=== PATIENT | male | born 1945 | race Two or more races ===

== ENCOUNTER 2022-10-04 11:59 | Outpatient (AMB) | payer OTHER, SELFPAY ==
--- NOTE | 2022-10-04 14:22 | AM.OFFWIN_ITS ---
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 In the meantime, he has run out of his tamsulosin, which he takes for enlarged benign prostatic hypertrophy, as well as atorvastatin 10 mg for hyperlipidemia. He reports also taking atenolol, hydrochlorothiazide, and nifedipine for hypertension therapy, as well as potassium chloride, and aspirin. He takes colchicine as needed with gout flare-ups. He denies any associated symptoms, and states that his last appointment with his PCP in [facility] was about 3 months ago, he was given only enough medication to last until then. No other past medical history available for review, as patient did not have any of his medical records with him. [facility] Social History Patient Tobacco Use Status: Never used Tobacco Review of Systems Const All systems reviewed & are unremarkable except as noted in HPI and below Physical Exam Vital Signs: Last Vital Signs Temp 97.1 F 10/04/22 14:29 Pulse 63 10/04/22 14:29 BP 138/56 L 10/04/22 14:29 Pulse Ox 96 10/04/22 14:29 Oxygen Delivery Method Room Air 10/04/22 14:29 BMI result Body Mass Index 28.0 Const General: cooperative, healthy appearing, comfortable, no acute distress, alert, awake, Physically active and well groomed; No anxious, diaphoretic, ill appearing, intoxicated appearing, poor hygiene or tired appearing Nutritional Appearance: average body habitus Limitations: no limitations Resp Effort & Inspection: normal respiratory effort, able to speak in complete sentences, no audible wheezes, no cough, no grunting, not labored, no nasal flaring, no retractions and symmetric chest movement Auscultation: clear to auscultation bilaterally, no crackles, no rales, no rhonchi, no wheezes, lung sounds not diminished and No rub present Cardio Rate: regular rate Rhythm: regular rhythm Skin Other: Good color, warm and dry Psych Appearance: grossly normal Mental Status: mental status grossly normal Speech and movement: Normal speech and movement present Affect: normal affect Attitude: cooperative Thought process: Normal thought process present Insight: Good insight present (Psych) Judgement: Good judgement present (Psych) Assessment & Plan Assessment & Plan (1) BPH with elevated PSA: Code(s): N40.0 - Benign prostatic hyperplasia without lower urinary tract symptoms; R97.20 - Elevated prostate specific antigen [PSA] Plan: Patient has been taking his tamsulosin daily, and states that it gives him some relief from urinary frequency symptoms. He has not run out of medication yet, but came in early before he would miss a dose. He has no associated symptoms, and is only 3 months out from PCP follow-up appointment. He will be establishing PCP care with new provider garry Macedo next month, so I gave him a 1 month supply to tide him over until then. He can get his PSA levels measured at that time if he is due. (2) Hypercholesterolemia: Code(s): E78.00 - Pure hypercholesterolemia, unspecified Plan: As above, patient came in requesting refill of atorvastatin 10 mg for his cholesterol control. We discussed how he attempts to maintain a healthy diet, and he states that he was up-to-date on monitoring his cholesterol with his prior PCP, so I agreed to refill his statin for 1 month until his appointment. He declined offer to get his cholesterol levels checked before his appointment with his PCP. (3) Hypertension: Code(s): I10 - Essential (primary) hypertension Plan: Patient with controlled blood pressure on walk-in visit today for refill of medication. It sounds like he has been compliant with his medication regimen, and is knowledgeable about when he takes his meds and why he takes them. He has enough hydrochlorothiazide, atenolol and nifedipine as well as potassium chloride to last until his scheduled appointment with new PCP. He has no current associated symptoms related to hypertension to report, and denies any current concerns. He knows to come in if he were to develop any symptoms, and can be seen in the walk-in if needed. Medications: New atorvastatin 10 mg PO DAILY 30 tabs 0RF tamsulosin 0.4 mg PO DAILY 30 caps 0RF Coding Level of Care Code New Pt Level 4 (05678) Diagnoses BPH with elevated PSA N40.0; R97.20 Hypercholesterolemia E78.00 Hypertension I10
[2022-10-04 14:29] VITALS: BP 138/56; PULSE 63; TEMP 36.2; O2SAT 96; BMI 28.0
== END 2022-10-04 15:19 | disposition home or self-care (01) ==
PROVIDERS: PCP Physician Assistant; Visit Provider Physician Assistant Medical
DX: N40.0 Benign prostatic hyperplasia without lower urinary tract symptoms (principal); R97.20 Elevated prostate specific antigen [PSA]; E78.00 Pure hypercholesterolemia, unspecified; I10 Essential (primary) hypertension
CPT/HCPCS: 99204

== ENCOUNTER 2022-11-02 10:49 | Outpatient (AMB) | payer OTHER, SELFPAY ==
--- NOTE | 2022-11-02 11:11 | MHC.OFFWIV ---
Intake Vital Signs 11/02/22 11:13 Height 5 ft 6 in Weight 80.371 kg BMI 28.6 BP 122/70 Blood Pressure Location Lt brachial Position Sitting Pulse 83 Pulse Source Pulse Oximeter Temp 98.6 F Temp Source Temporal Artery Scan Pulse Oximetry (%) 95 Oxygen Delivery Method Room Air Intake Visit Reasons: EST/med refill Intake Note: Pt is here requesting a med refill on Atenolol 100 mg. Pt has appointment with PCP 11/27/22. Patient Tobacco Use Status: Never used Tobacco Allergies No Known Allergies Allergy (Verified 11/02/22 11:17) Do you need a note to return to daycare/school/sports/work: No HPI HPI Comments History of Present Illness Details 1129 77 year old male presents requesting med refil atenalol 100 mg po daily. No medical complaints. Scheduled to see pcp in november benign Plan- refil med pcp follow up [facility] Social History Patient Tobacco Use Status: Never used Tobacco Review of Systems Const Details: Constitutional : No Weight loss, No Fever, No Chills, No Fatigue, No Malaise ENT/Mouth : No sore throat, No Rhinorrhea Eyes: No Eye Pain, No Swelling, No Redness Cardiovascular : No Chest Pain, No SOB, No Dyspnea on Exertion, No Orthopnea, No Edema, No Palpitations Respiratory : No Cough, No Sputum, No Wheezing Gastrointestinal : No Nausea, No Vomiting, No Diarrhea, No Constipation, No abdominal Pain, No Hematochezia, No Melena Genitourinary : No Dysuria, No Urinary Frequency, No Hematuria, Musculoskeletal : No joint pain, No Myalgias, No Joint Swelling Skin : No Skin Lesions, No rash Neuro : No Weakness, No Numbness, No Dizziness, No Headache Psych : No Anxiety/Panic, No Depression All other systems reviewed and are negative All systems reviewed & are unremarkable except as noted in HPI and below Physical Exam Vital Signs: Last Vital Signs Temp 98.6 F 11/02/22 11:13 Pulse 83 11/02/22 11:13 BP 122/70 11/02/22 11:13 Pulse Ox 95 11/02/22 11:13 Oxygen Delivery Method Room Air 11/02/22 11:13 BMI result Body Mass Index 28.6 vss Appearance: Alert.? Oriented X3.? No acute distress.? Head: Normocephalic, atraumatic, no step-offs or deformities Eyes: Pupils equal, round and reactive to light.? CVS: Normal heart rate and rhythm.? Pulses normal.? Respiratory: No respiratory distress.? Breath sounds normal.? Abdomen: Soft and nontender.? Skin: Skin warm and dry.? Normal skin color.? Normal skin turgor.? Extremities: No lower extremity edema.? No calf ttp. 5/5 strength to bilateral upper and lower extremities Neuro: Oriented X 3.? No motor deficit.? No sensory deficit. CN 2-12 intact Assessment & Plan Assessment & Plan (1) Medication refill: Code(s): Z76.0 - Encounter for issue of repeat prescription Plan Take your medications as prescribed. If you were prescribed antibiotics today, it is important that you take your medication to their entirety, do not skip any doses, do not finish them early. Follow-up with your primary care provider this week. Return to the emergency department with new or worsening symptoms. Such as fevers, chills, chest pain, shortness of breath, nausea, vomiting, dizziness, headache, vision changes, lethargy In case of emergency call 911 Medications: New atenolol 100 mg PO DAILY 30 tabs 0RF Coding Level of Care Code Est Pt Level 4 (78742) Diagnoses Medication refill Z76.0
[2022-11-02 11:13] VITALS: BP 122/70; PULSE 83; TEMP 37; O2SAT 95; BMI 28.6
== END 2022-11-02 12:51 | disposition home or self-care (01) ==
PROVIDERS: PCP Physician Assistant; Visit Provider Physician Assistant
DX: Z76.0 Encounter for issue of repeat prescription (principal)
CPT/HCPCS: 99214

== ENCOUNTER 2022-11-09 08:46 | Outpatient (AMB) | payer OTHER, SELFPAY ==
[2022-11-09 08:53] VITALS: BP 122/64; PULSE 74; TEMP 36.4; O2SAT 95; BMI 29.1
--- NOTE | 2022-11-09 08:53 | MHC.OFFWIV ---
Intake Vital Signs 11/09/22 08:53 Height 5 ft 6 in Weight 180 lb 2 oz BMI 29.1 BP 122/64 Blood Pressure Location Rt brachial Pulse 74 Pulse Source Pulse Oximeter Temp 97.6 F Temp Source Temporal Artery Scan Pulse Oximetry (%) 95 Oxygen Delivery Method Room Air Intake Visit Reasons: EST/med refill Intake Note: Pt is here requesting a med refill on Potassium chloride 20MEQ and Tamsulosin 0.4 MG Pt has new pt appt with Librado Macedo on 11/27/22 Patient Tobacco Use Status: Never used Tobacco Allergies No Known Allergies Allergy (Verified 11/09/22 08:55) HPI HPI Comments History of Present Illness Details This is a 77-year-old male who presents to the office today for medication refill. Patient needs a refill on his PO potassium chloride 20mEq twice daily and PO tamsulosin 0.4mg daily. He has a new patient appointment with Zander Macedo on 11/27. Patient has his prescription bottles with him. Patient is otherwise feeling well and he is completely asymptomatic of any medical complaints. [facility] Social History Patient Tobacco Use Status: Never used Tobacco Review of Systems Const All systems reviewed & are unremarkable except as noted in HPI and below Reports no additional complaints Eyes Reports no additional complaints ENT Reports no additional complaints Card Reports no additional complaints Resp Reports no additional complaints GI Reports no additional complaints Reports no additional complaints Musc Reports no additional complaints Skin/Breast Reports system reviewed and no additional complaints, except as documented Neuro Reports no additional complaints Psych Reports no additional complaints Endo Reports no additional complaints Dalton/Lymph Reports no additional complaints Aller/Immun Reports no additional complaints Physical Exam Vital Signs: Last Vital Signs Temp 97.6 F 11/09/22 08:53 Pulse 74 11/09/22 08:53 BP 122/64 11/09/22 08:53 Pulse Ox 95 11/09/22 08:53 Oxygen Delivery Method Room Air 11/09/22 08:53 BMI result Body Mass Index 29.1 Const Other: Vital signs reviewed. Constitutional: Non-toxic appearing. No acute distress. Well-developed and well-nourished. HEENT: Normocephalic and atraumatic. PERRL/EOMI. Skin: Warm and dry. No rashes or lesions noted. Neck: Full and painless range of motion. Cardio: Regular rate. No lower extremity edema. No JVD. Pulmonary: No respiratory distress. No accessory muscle usage. Gastrointestinal: Soft, nontender, and nondistended in all 4 quadrants. Musculoskeletal: Normal range of motion in joints throughout the body. No deformity or other signs of injury. Neuro: Alert and oriented x4. Cranial nerves 2-12 grossly intact. No focal deficits appreciated. Psych: Normal mood and affect. Assessment & Plan Assessment & Plan (1) Medication refill: Code(s): Z76.0 - Encounter for issue of repeat prescription Plan: This is a 77-year-old male presenting to the office for medication refill on his potassium and tamsulosin. He has a new patient appointment at this office on 11/27. Patient has his prescription bottles with the sig; he takes p.o. potassium chloride 20 mEq use extended release twice daily and PO tamsulosin 0.4 mg daily. Patient was given a one-month supply of these medications. Patient will follow-up with his new PCP on 11/27. Patient is asymptomatic of any medical complaints. His vital signs are stable and he is overall nontoxic appearing. Patient discharged home. Medications: New potassium chloride ER 20 mEq PO BID 60 tabs 0RF tamsulosin 0.4 mg PO DAILY 30 caps 0RF Coding Level of Care Code Est Pt Level 3 (76541) Diagnoses Medication refill Z76.0
== END 2022-11-09 09:25 | disposition home or self-care (01) ==
PROVIDERS: PCP Physician Assistant; Visit Provider Physician Assistant Medical
DX: Z76.0 Encounter for issue of repeat prescription (principal)
CPT/HCPCS: 99213

== ENCOUNTER 2022-11-27 15:22 | Outpatient (AMB) | payer OTHER, SELFPAY ==
[2022-11-27 15:26] VITALS: BP 130/70; PULSE 73; O2SAT 97; BMI 28.1
--- NOTE | 2022-11-27 15:26 | MHC.PC.OV ---
Vital Signs 11/27/22 15:26 Height 5 ft 6 in Weight 174 lb 4 oz BMI 28.1 BP 130/70 Blood Pressure Location Lt brachial Position Sitting Pulse 73 Pulse Source Pulse Oximeter Pulse Oximetry (%) 97 Oxygen Delivery Method Room Air Intake Visit Reasons: Establish care Intake Note: Patient is a new patient here to establish care for Elevated PSA. Pt is requesting two referrals one for Cardiology for heart problems and Urology for elevated PSA. Transferring care from Koffi Sheppard MD from [facility]. Medical records have been requested today. fax: [phone]. Motor Equipment Captain Required: No Accompanied by: Self / Same As Patient Allergies No Known Allergies Allergy (Verified 11/27/22 15:45) Medication List - Last Reconciled 11/27/22 by Zander Macedo PA-C aspirin 81 mg PO DAILY atenolol 100 mg PO DAILY atorvastatin 10 mg PO DAILY hydrochlorothiazide 0.6 mg PO DAILY nifedipine 10 mg PO ONCE potassium chloride ER 20 mEq PO BID tamsulosin 0.4 mg PO DAILY Tobacco use date assessed: 11/27/22 Fall risk assessment: No Falls in past year Last assessed Fall Risk: 11/27/22 Dental Screening Dental Screen Date: 11/27/22 Did you have a dental visit in the last 12 months?: No Did you have a dental problem in the last 6 months where you did not have access to dental care?: No Was dental information given to patient?: Yes HPI Establish care HPI Details Patient is a 77-year-old male here today as a new patient visit. Previous PCP was in [facility]. Patient's past medical history significant for BPH, hypertension, hyperlipidemia. He seems to be somewhat of a poor historian. He reports he was seeing urologist and a cement boat and barge loader while living in [place] and would like referrals to both specialist. Unclear as to why he was seeing a cement boat and barge loader while in [place]. He denies having had heart attack or stroke. He did report getting a cardiac catheterization though reports per patient were normal. Will await records from [place] Hypertension: On atenolol, nifedipine and hydrochlorothiazide, blood pressure are stable today in office. He denies any side effects. BPH: Patient continues on tamsulosin with good effect on his urinary flow. He would like to see urologist again for continued follow-up. 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 1. Little interest or pleasure in doing things: not at all 2. Feeling down, depressed, or hopeless: not at all 3. Trouble falling or staying asleep, or sleeping too much: not at all 4. Feeling tired or having little energy: not at all 5. Poor appetite or overeating: not at all 6. Feeling bad about yourself - or that you are a failure or have let yourself or your family down: not at all 7. Trouble concentrating on things, such as reading the newspaper or watching television: not at all 8. Moving or speaking so slowly that other people could have noticed. Or the opposite - being so fidgety or restless that you have been moving around a lot more than usual: not at all 9. Thoughts that you would be better off or of hurting yourself in some way: not at all Total score: 0 Depression Screening Interpretation: Negative Depression Screening Done: Yes [id number] - PHQ-9 Billing: Yes Source: Developed by Drs. Henrique Vaughn, Marcie Hoyos, Altaf Swanson and colleagues, with an educational jennifer from [employer]. Thrive Questionnaire Date Thrive assessed: 11/27/22 I am a: Patient What is your living situation today?: I have a steady place to live Within the past 12 months, did the food you bought not last and you didn't have the money to get more?: Never true Within the past 12 months, did you worry whether your food would run out before you got money to buy more?: Never true Do you have trouble paying for medicines?: No Do you have trouble getting transportation to medical appointments?: No Do you have trouble paying your heating and electricity bill?: No Do you have trouble taking care of your child, family member or friend?: No Do you have trouble with day-to-day activities such as bathing, preparing meals, shopping, managing finances, etc.?: No Are you currently unemployed and looking for a job?: No Are you interested in more education?: No Please select the resources that you would like help with: None Currently or been in a relationship where the following occur: no concerns reported AUDIT C Alcohol Use Questionnaire (AUDIT-C) 1. How often do you have a drink containing alcohol?: Monthly or less 2. How many drinks containing alcohol do you have on a typical day when you are drinking?: 1 or 2 3. How often do you have six or more drinks on one occasion?: Never Total Score: 1 ALEXEI-7 AMB Questionnaire ALEXEI-7 Date ALEXEI - 7 assessed: 11/27/22 Feeling nervous, anxious, or on edge: 0 = Not at all Not being able to stop or control worryin = Not at all Worrying too much about different things: 0 = Not at all Trouble relaxin = Not at all Being so restless that it is hard to sit still: 0 = Not at all Becoming easily annoyed or irritable: 0 = Not at all Feeling afraid as if something awful might happen: 0 = Not at all Total ALEXEI-7 score (0-4 normal; 5-9 mild; 10-14 moderate; 15-21 severe): 0 Source: Developed by Drs. Henrique Vaughn, Marcie Hoyos, Altaf Swanson and colleagues, with an educational jennifer from [employer]. ALEXEI-7 Assessment Billing ALEXEI-7 Assessment Tool: ALEXEI-7 Assessment 49892 Review of Systems Const Denies headache(s) Eyes Denies loss of vision ENT Denies vertigo, Denies dizziness, Denies headache(s) and Denies sore throat Card Denies chest pain, Denies leg edema and Denies lightheadedness Resp Denies cough, Denies hemoptysis and Denies wheezing GI Denies abdominal pain, Denies melena, Denies constipation, Denies diarrhea and Denies vomiting Denies dysuria, Denies urinary frequency and Denies urinary urgency Musc Denies arthralgias, Denies joint swelling, Denies numbness and Denies tingling Neuro Denies Abnormal speech present, Denies behavioral changes, Denies vertigo, Denies dizziness, Denies headache(s), Denies loss of vision, Denies memory loss, Denies numbness and Denies tingling Psych Denies anxiety, Denies behavioral changes, Denies depression, Denies memory loss and Denies panic attacks Dalton/Lymph Denies easy bleeding and Denies easy bruising Aller/Immun Denies wheezing Physical exam (Primary Care) Vital Signs: Last Vital Signs Pulse 73 11/27/22 15:26 BP 130/70 11/27/22 15:26 Pulse Ox 97 11/27/22 15:26 Oxygen Delivery Method Room Air 11/27/22 15:26 BMI result Body Mass Index 28.1 Tobacco/Smoking Status: Tobacco use Status Tobacco use date assessed 11/27/22 11/27/22 15:38 Patient Tobacco Use Status Former Tobacco user 11/27/22 15:46 Tobacco use type Cigarette 11/27/22 15:46 e-Cigarette/Vaping Use Never Used 11/27/22 15:46 PHQ-9: PHQ-9 Score PHQ-9: Total score 0 11/27/22 15:38 Depression Screening Interpretation: Negative Thrive Assessment: Date of Thrive Assessment Date Thrive assessed 11/27/22 11/27/22 15:38 Currently or been in a relationship where the following occur: no concerns reported Const General: healthy appearing, no acute distress, alert and awake Nutritional Appearance: well nourished Orientation/consciousness: oriented to person, oriented to place and oriented to time HENMT Ears: TM's normal bilaterally General nose exam: Normal nasal mucous membranes and turbinates present Eyes Conjunctivae: conjunctivae normal Sclerae: sclerae normal Pupils: Equal, round and reactive pupils present Neck Neck: Yes no lymphadenopathy and Yes no JVD Thyroid: Thyroid normal Carotids: no bruits Resp Effort & Inspection: normal respiratory effort and not tachypneic Auscultation: no crackles, no rales, no rhonchi and no wheezes Cardio Rate: regular rate Rhythm: regular rhythm Heart sounds: no murmurs and normal S1 and S2 GI Palpation (GI): Soft to palpation, nontender, no hepatomegaly and no splenomegaly Auscultation: normal bowel sounds Skin General skin exam: no rashes or lesions noted and dry skin Neuro General: oriented to person, oriented to place and oriented to time Cranial nerves: Yes Equal, round and reactive pupils present Speech: No Abnormal speech present Gait exam (Neuro): Normal gait present Motor exam (neuro): no tremor noted Extrem Right upper extremity: full ROM Left upper extremity: full ROM Right lower extremity: full ROM; no edema Left lower extremity: full ROM; no edema Psych Mental Status: mental status grossly normal Speech and movement: Normal speech and movement present Affect: normal affect Attitude: cooperative Thought process: Normal thought process present Office Procedures Flu Questionnaire Does the patient have a severe egg allergy?: No Does the patient have severe life threatening allergies?: No Does the patient have a fever or illness today?: No Has the patient ever had Guillain-[place] Syndrome?: No Has the patient ever had any past reaction to a flu shot?: No Immunizations flu vacc [id number] 6mos up(PF) 60 mcg(15 mcgx4)/0.5 mL IM syringe Performing Provider: Zander Macedo PA-C Performing Location: [facility] Administered by: ORTEGA Hicks on 11/27/22 16:02 Dose Route Admin Location Dispensed Lot Number Expiration Date NDC Nurse Care Manager 0.5 mL IM Left Deltoid 0.5 mL [id number] 08/18/23 85705-009-04 [employer] VIS Given Date VIS Provided VIS Publication Date 11/27/22 Single Vaccine 20 Eligibility Eligibility Date Funding Source Not [facility] Eligible 11/27/22 Private Assessment and Plan Assessment & Plan (1) HTN (hypertension): Code(s): I10 - Essential (primary) hypertension Qualifiers: Hypertension type: primary hypertension Qualified Code(s): I10 - Essential (primary) hypertension Plan: Blood pressure acceptable today in office. Will continue him on atenolol, nifedipine and hydrochlorothiazide. Advised to monitor blood pressure at home to assure blood pressures are below 140/90. (2) BPH (benign prostatic hyperplasia): Code(s): N40.0 - Benign prostatic hyperplasia without lower urinary tract symptoms Qualifiers: Lower urinary tract symptom detail: nocturia Lower urinary tract symptom presence: symptoms present Qualified Code(s): N40.1 - Benign prostatic hyperplasia with lower urinary tract symptoms; R35.1 - Nocturia Plan: He reports no urinary symptoms. He does report Flomax has been helpful for him. Will continue to follow PSA on annual basis. (3) HLD (hyperlipidemia): Code(s): E78.5 - Hyperlipidemia, unspecified Qualifiers: Hyperlipidemia type: mixed hyperlipidemia Qualified Code(s): E78.2 - Mixed hyperlipidemia Plan: Patient continues on statin therapy. Will check his fasting lipid panel to assure appropriate total cholesterol and LDL. (4) Screening for diabetes mellitus (DM): Code(s): Z13.1 - Encounter for screening for diabetes mellitus (5) Hypokalemia: Code(s): E87.6 - Hypokalemia Plan: He does report having history of low potassium. Has been on potassium supplementation [facility] [place]. Will check his electrolytes to ensure potassium. (6) SNHL (sensorineural hearing loss): Code(s): H90.5 - Unspecified sensorineural hearing loss Qualifiers: Contralateral hearing status: unspecified Laterality: right Qualified Code(s): H90.5 - Unspecified sensorineural hearing loss Plan: He does report some right-sided hearing deficit and is willing to get hearing exam (7) Impaired glucose metabolism: Code(s): R73.09 - Other abnormal glucose Plan: He does report while in [place] his primary care was following his sugar is he reports he had been in borderline high levels. Will check an A1c Orders: Orders Complete Blood Count no Diff 11/27/22 I10 - Essential (primary) hypertension Influenza [id number] Immunization 11/27/22 Z23 - Encounter for immunization Hemoglobin A1c 11/27/22 R73.09 - Other abnormal glucose Microalbumin, Random (w Creat) 11/27/22 I10 - Essential (primary) hypertension Comprehensive [place]. Panel Fast 11/27/22 I10 - Essential (primary) hypertension Lipid Panel 11/27/22 E78.2 - Mixed hyperlipidemia Prostate Specific Antigen Scr 11/27/22 N40.1 - Benign prostatic hyperplasia with lower urinary tract symptoms, R35.1 - Nocturia, Z12.5 - Encounter for screening for malignant neoplasm of prostate Referrals Speech and Hearing Referral H90.5 - Unspecified sensorineural hearing loss Urology Referral N40.1 - Benign prostatic hyperplasia with lower urinary tract symptoms, R35.1 - Nocturia Medications: Changed From hydrochlorothiazide 0.6 mg PO DAILY I10 - Essential (primary) hypertension To hydrochlorothiazide 12.5 mg PO DAILY I10 - Essential (primary) hypertension From atorvastatin 10 mg PO DAILY 30 tabs 0RF E78.2 - Mixed hyperlipidemia To atorvastatin 10 mg PO DAILY 90 days 90 tabs 1RF E78.2 - Mixed hyperlipidemia From potassium chloride ER 20 mEq PO BID 60 tabs 0RF E87.6 - Hypokalemia, I10 - Essential (primary) hypertension To potassium chloride ER 20 mEq PO BID 90 days 180 tabs 1RF E87.6 - Hypokalemia, I10 - Essential (primary) hypertension From atenolol 100 mg PO DAILY 30 tabs 0RF I10 - Essential (primary) hypertension To atenolol 100 mg PO DAILY 90 days 90 tabs 1RF I10 - Essential (primary) hypertension From nifedipine 10 mg PO ONCE I10 - Essential (primary) hypertension To nifedipine 10 mg PO ONCE 90 days 90 caps 1RF I10 - Essential (primary) hypertension Refilled tamsulosin 0.4 mg PO DAILY 90 caps 1RF N40.1 - Benign prostatic hyperplasia with lower urinary tract symptoms, R35.1 - Nocturia Coding Level of Care Code New Pt Level 4 (35696) Diagnoses Primary hypertension I10 Hypertension type: primary hypertension Benign prostatic hyperplasia with nocturia N40.1; R35.1 Lower urinary tract symptom detail: nocturia Lower urinary tract symptom presence: symptoms present Mixed hyperlipidemia E78.2 Hyperlipidemia type: mixed hyperlipidemia Screening for diabetes mellitus (DM) Z13.1 Hypokalemia E87.6 Sensorineural hearing loss (SNHL) of right ear, unspecified hearing status on contralateral side H90.5 Contralateral hearing status: unspecified Laterality: right Impaired glucose metabolism R73.09 Additional Codes ALEXEI-7 Assessment Billing - ALEXEI-7 Assessment Tool: ALEXEI-7 Assessment 20142 ([id number])
== END 2022-11-27 16:00 | disposition home or self-care (01) ==
PROVIDERS: PCP Physician Assistant; Visit Provider Physician Assistant
DX: Z23 Encounter for immunization (principal)
CPT/HCPCS: 90471; 90686; 99204; 99214

== ENCOUNTER 2022-12-17 12:00 | Outpatient (REF) | payer OTHER, SELFPAY ==
[2022-12-17 12:33] LABS: Hematocrit 43.9 % (42.0-52.0); Hemoglobin 14.2 g/dl (14.0-18.0); Mean Corpuscular HGB Conc 32.3 g/dl (31.0-36.0); Mean Corpuscular Hemoglobin 29.6 pg (27.0-33.0); Mean Corpuscular Volume 91.5 fL (80.0-98.0); Mean Platelet Volume 10.2 fL (9.4-12.4); Platelet Count 255 X10*3/uL (160-400); Red Cell Distribution Width 14.4 % (11.0-16.0); White Blood Count 7.1 X10*3/uL (4.8-10.8)
[2022-12-17 12:42] LABS: Estimated Average Glucose 108 mg/dL; Hemoglobin A1c % 5.4 % (<6.0)
[2022-12-17 13:24] LABS: Alanine Aminotransferase 23 U/L (0-40); Albumin Level 3.8 g/dL (3.5-5.0); Alkaline Phosphatase 62 U/L (39-117); Anion Gap 12 (12-20); Aspartate Amino Transferase 21 U/L (5-37); Blood Urea Nitrogen 15 mg/dL (9-16); Calcium 9.1 mg/dL (8.4-10.2); Carbon Dioxide 24 mmol/L (22-29); Chloride 111 mmol/L (96-108); Cholesterol 155 mg/dL (<200); Estimated Glomerular Filt Rate > 60; Glucose Fasting 115 mg/dL (60-99); HDL Cholesterol 43 mg/dL (>40); LDL Cholesterol Calculated 86 mg/dL (<100); Potassium 3.9 mmol/L (3.3-5.1); Sodium 143 mmol/L (135-145); Total Protein 7.1 g/dL (6.5-8.0); Triglycerides 130 mg/dL (<150)
[2022-12-17 13:38] LABS: Prostate Specific Antigen Scr 1.18 ng/mL (<0.05-4.0)
[2022-12-17 14:11] LABS: Creatinine Urine 163.37 mg/dL; Microalbum/Creatinine Ratio Ur 122.4 ug/mg cr (<30)
== END 2022-12-17 12:01 | disposition home or self-care (01) ==
LOC: HO.LAB 12:00
PROVIDERS: PCP Physician Assistant; Visit Provider Physician Assistant
DX: I10 Essential (primary) hypertension (principal); E78.2 Mixed hyperlipidemia; R73.09 Other abnormal glucose; N40.1 Benign prostatic hyperplasia with lower urinary tract symptoms; R35.1 Nocturia; Z12.5 Encounter for screening for malignant neoplasm of prostate
CPT/HCPCS: 36415; 80053; 80061; 82043; 82570; 83036; 84153; 85027

== ENCOUNTER 2023-01-09 13:02 | Outpatient (AMB) | payer OTHER, SELFPAY ==
--- NOTE | 2023-01-09 13:11 | MHC.OFFWIV ---
Intake Vital Signs 01/09/23 13:13 Weight 82.1 kg BP 120/80 Blood Pressure Location Lt brachial Position Sitting Pulse 74 Pulse Source Pulse Oximeter Pulse Oximetry (%) 98 Oxygen Delivery Method Room Air Intake Visit Reasons: EST/sore throat (lobby masked) Intake Note: Patient here for sore throat, cough, congestion and teary eyes for the past few days. Patient Tobacco Use Status: Former Tobacco user Quit Date: 1976 Allergies No Known Allergies Allergy (Verified 01/09/23 13:14) Do you need a note to return to daycare/school/sports/work: No HPI HPI Comments History of Present Illness Details 1324 77-year-old presents with complaints of cough, fatigue, malaise, sore throat for the past 3 days. Patient reports symptoms are not improving. + sick contact at home w/ bronchitis . Patient denies headache, vision changes, dizziness, weakness, chest pain, shortness of breath, nausea, vomiting, abdominal pain, changes in bowel habits, weakness, not eating or drinking. Taking claratin w/o relief of sx. Physical exam benign. History and physical exam concerning for bronchitis versus upper respiratory infection versus viral illness vs allergies . Unlikely pulmonary embolism, acute respiratory distress, peritonsillar retropharyngeal abscess no signs of airway compromise, epiglottitis. Plan at this time viral testing. Will discharge with albuterol. Educated patient on diagnosis and treatment plan, answered all question, patient verbalizes understanding. At this time patient will be discharged home, advised to return with new or worsening symptoms. Educated on worrisome signs and symptoms and when to return. At this time I feel comfortable discharge home. 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 Cognitive needs: No Vision needs: No Review of Systems Const Details: Constitutional : No Weight loss, No Fever, No Chills, + Fatigue, + Malaise ENT/Mouth : + sore throat, No Rhinorrhea Eyes: No Eye Pain, No Swelling, No Redness Cardiovascular : No Chest Pain, No SOB, No Dyspnea on Exertion, No Orthopnea, No Edema, No Palpitations Respiratory : + Cough, No Sputum, No Wheezing Gastrointestinal : No Nausea, No Vomiting, No Diarrhea, No Constipation, No abdominal Pain, No Hematochezia, No Melena Genitourinary : No Dysuria, No Urinary Frequency, No Hematuria, Musculoskeletal : No joint pain, No Myalgias, No Joint Swelling Skin : No Skin Lesions, No rash Neuro : No Weakness, No Numbness, No Dizziness, No Headache Psych : No Anxiety/Panic, No Depression All other systems reviewed and are negative All systems reviewed & are unremarkable except as noted in HPI and below Physical Exam Vital Signs: Last Vital Signs Pulse 74 01/09/23 13:13 BP 120/80 01/09/23 13:13 Pulse Ox 98 01/09/23 13:13 Oxygen Delivery Method Room Air 01/09/23 13:13 vss Saturating 98% even after ambulation Appearance: Alert.? Oriented X3.? No acute distress.? Head: Normocephalic, atraumatic, no step-offs or deformities Eyes: Pupils equal, round and reactive to light.? ENT: Pharynx normal.? no signs of retropharyngeal, peritonsillar abscess. Uvula midline. Speaking in full sentences controlling secretions well Neck: Normal inspection.? Neck supple.? CVS: Normal heart rate and rhythm.? Pulses normal.? Respiratory: No respiratory distress.? Breath sounds with faint expiratory wheezing to bilateral lungs. Appears well.? Abdomen: Soft and nontender.? Skin: Skin warm and dry.? Normal skin color.? Normal skin turgor.? Extremities: No lower extremity edema.? No calf ttp. 5/5 strength to bilateral upper and lower extremities Neuro: Oriented X 3.? No motor deficit.? No sensory deficit. CN 2-12 intact Results AMB Rapid Strep AMB Rapid Strep Negative Last Edit by ORTEGA Xavier on 01/09/23 13:26 Results Reviewed Results Reviewed: Laboratory Last Values Strep Scn [facility] Negative 01/09/23 13:25 Assessment & Plan Assessment & Plan (1) Viral respiratory illness: Code(s): J98.8 - Other specified respiratory disorders; B97.89 - Other viral agents as the cause of diseases classified elsewhere Plan Take your medications as prescribed. If you were prescribed antibiotics today, it is important that you take your medication to their entirety, do not skip any doses, do not finish them early. Follow-up with your primary care provider this week. Return to the emergency department with new or worsening symptoms. Such as fevers, chills, chest pain, shortness of breath, nausea, vomiting, dizziness, headache, vision changes, lethargy In case of emergency call 911 Orders: Orders AMB Rapid Strep Screen Today Z13.9 - Encounter for screening, unspecified SARS-CoV2/FLU/RSV Today B34.9 - Viral infection, unspecified Medications: New albuterol sulfate 90 mcg/actuation 2 puffs inhalation Q6H PRN 6.7 grams 0RF shortness of breath or wheezing Coding Level of Care Code Est Pt Level 3 (80343) Diagnoses Viral respiratory illness J98.8; B97.89
[2023-01-09 13:13] VITALS: BP 120/80; PULSE 74; O2SAT 98
== END 2023-01-09 14:44 | disposition home or self-care (01) ==
PROVIDERS: PCP Physician Assistant; Visit Provider Physician Assistant
DX: J98.8 Other specified respiratory disorders (principal); B97.89 Other viral agents as the cause of diseases classified elsewhere; J02.9 Acute pharyngitis, unspecified
CPT/HCPCS: 87880; 99213

== ENCOUNTER 2023-01-09 15:55 | Outpatient (REF) | payer OTHER, SELFPAY ==
[2023-01-09 16:55] LABS: Influenza A PCR NEGATIVE (Negative); Influenza B PCR NEGATIVE (Negative); Resp Syncy Virus RNA Qual PCR NEGATIVE (Negative); SARS COV2 PCR INHOUSE NEGATIVE (Negative)
== END 2023-01-09 15:56 | disposition home or self-care (01) ==
LOC: HO.LNP 15:55
PROVIDERS: Visit Provider Physician Assistant
DX: Z11.52 Encounter for screening for COVID-19 (principal); Z20.822 Contact with and (suspected) exposure to COVID-19; B34.9 Viral infection, unspecified
CPT/HCPCS: 0241U

== ENCOUNTER 2023-01-18 09:09 | Outpatient (AMB) | payer OTHER, SELFPAY ==
--- NOTE | 2023-01-18 09:13 | MHC.OFFVIS ---
Intake Intake Visit Reasons: Nocturia/BPH Intake Note: New Patient presents for initial visit for nocturia/bph Urology Medications: tamsulosin Blood Thinner: aspirin PVR: 0ml's Clothes Drier Repairer Required: No Accompanied by: Self / Same As Patient Allergies No Known Allergies Allergy (Verified 01/19/23 08:28) Medication List - Last Reconciled 01/19/23 by DAWSON BookerP- albuterol sulfate 90 mcg/actuation 2 puffs inhalation Q6H PRN aspirin 81 mg PO DAILY atenolol 100 mg PO DAILY 90 days atorvastatin 10 mg PO DAILY 90 days hydrochlorothiazide 12.5 mg PO DAILY loratadine 5 mg PO BID nifedipine ER 30 mg PO DAILY potassium chloride ER 20 mEq PO BID 90 days tamsulosin 0.4 mg PO DAILY HPI HPI Comments History of Present Illness Details Max is a very pleasant 77-year-old male patient of Dr. Macedo. he has a past medical history of BPH, Gout, hyperlipidemia, and hypertension. He presents to the office today as a new patient to establish urology care. He reports recently moving here from [facility] and would like to establish urology care. He discusses being on Flomax for lower urinary tract symptoms and feels this is working well for him. He reports being on this medication for approximately 10 years. He reports when he runs out of medication and or does not take the medication he feels weak urinary stream and difficulty with initiation of urination. He otherwise reports to be happy with current voiding parameters while taking 0.4 mg of Flomax daily. he currently denies any bothersome urinary issues or concerns at this time. He denies urinary urgency, urinary frequency, incontinence, nocturia, hematuria, dysuria, foul smelling urine, changes to urinary stream, flank pain, fever, and or chills. in office urinalysis results reviewed with the patient today. PVR 0 mL. Discussed obtaining retroperitoneal ultrasound for further assessment and evaluation. In review of patient's chart it appears PSA was obtained these results reviewed with the patient today. 12/10 1.2. He otherwise offers no issues or concerns at this time. 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 Cognitive needs: No Vision needs: No Review of Systems Const Reports no additional complaints Eyes Reports no additional complaints ENT Reports no additional complaints Card Reports as per HPI Resp Reports no additional complaints GI Reports no additional complaints Reports as per HPI Musc Reports no additional complaints Neuro Reports no additional complaints Psych Reports no additional complaints Endo Reports no additional complaints Dalton/Lymph Reports no additional complaints Aller/Immun Reports no additional complaints Physical Exam Const General: cooperative, healthy appearing, comfortable, no acute distress, well developed, alert and awake Orientation/consciousness: patient oriented x3 Limitations: no limitations HEENT Head: Yes normal to inspection, Yes normocephalic and Yes atraumatic Ears: hearing grossly normal bilaterally Eyes General: appearance normal, both eyes and all related structures Neck Neck: Yes normal visual inspection and Yes trachea midline Chest Chest palpation & inspection: normal inspection of the chest Resp Effort & Inspection: normal respiratory effort and able to speak in complete sentences Cardio Rate: regular rate GI Inspection: Yes normal to inspection General: Yes no CVA tenderness Back/Spine/Pelvis Back: no CVA tenderness Skin General skin exam: no rashes or lesions noted Neuro General: patient oriented x3 Extrem General: Yes normal to inspection Psych Appearance: grossly normal and well kempt Mental Status: mental status grossly normal Speech and movement: Normal speech and movement present and Clear speech present Affect: normal affect Attitude: cooperative Thought process: Normal thought process present Thought content: Normal thought content present Insight: Fair insight present (Psych) Judgement: Fair judgement present (Psych) Office Procedures Post Void Residual Post Residual Void Post Void Residual (PVR): 0 18055-[id number] Void Residual by ultrasound Results AMB Urinalysis, Automated UA Leukoctes 0 Lilly/uL Last Edit by Felix Krishnamurthy on 01/18/23 09:33 UA Nitrite Negative Last Edit by Felix Krishnamurthy on 01/18/23 09:33 UA Urobilinogen 0.2 mg/dL Last Edit by Felix Krishnamurthy on 01/18/23 09:33 UA Protein 30 mg/dL Last Edit by Felix Krishnamurthy on 01/18/23 09:33 UA pH 6.0 Last Edit by Felix Krishnamurthy on 01/18/23 09:33 UA Blood 10 Kodi/uL Last Edit by Felix Novakjose on 01/18/23 09:33 UA Specific Scroggins 1.025 Last Edit by Felix Novakjose on 01/18/23 09:33 UA Ketone Negative Last Edit by Ruysonal Scarletjose on 01/18/23 09:33 UA Bilirubin 0 mg/dL Last Edit by Ruysonal Scarletjose on 01/18/23 09:33 UA Glucose 0 mg/dL Last Edit by Ruysonal Scarletjose on 01/18/23 09:33 Results Reviewed Results Reviewed: Laboratory Last Values Urine pH (Auto) 6.0 01/18/23 09:17 Specific Scroggins (Auto) 1.025 01/18/23 09:17 Urine Protein (Auto) 30 mg/dL 01/18/23 09:17 Glucose (UA)(Auto) 0 mg/dL 01/18/23 09:17 Urine Ketones (Auto) Negative 01/18/23 09:17 Urine Blood (Auto) 10 Kodi/uL 01/18/23 09:17 Urine Nitrite (Auto) Negative 01/18/23 09:17 Urine Bilirubin (Auto) 0 mg/dL 01/18/23 09:17 Urine Urobilinogen (Auto) 0.2 mg/dL 01/18/23 09:17 Leukocyte Esterase (Auto) 0 Lilly/uL 01/18/23 09:17 Assessment & Plan Assessment & Plan (1) BPH (benign prostatic hyperplasia): Code(s): N40.0 - Benign prostatic hyperplasia without lower urinary tract symptoms Qualifiers: Lower urinary tract symptom detail: nocturia Lower urinary tract symptom presence: symptoms present Qualified Code(s): N40.1 - Benign prostatic hyperplasia with lower urinary tract symptoms; R35.1 - Nocturia Plan In office urinalysis results reviewed with the patient today; as noted above. PVR 0 mL. Continue Flomax as discussed and prescribed. Will obtain retroperitoneal ultrasound for further assessment evaluation. Patient reports be happy with current voiding parameters on 0.4 mg of flomax daily; will continue; refill provided Patient denies any bothersome urinary issues or concerns at this time. Follow-up in 1-2 months with imaging to be completed prior; or sooner with any issues, concerns, and or questions. Orders: Orders AMB Post Void Residual by ultrasound 01/18/23 N40.1 - Benign prostatic hyperplasia with lower urinary tract symptoms, R35.1 - Nocturia US retroperitoneal comp 01/18/23 N40.0 - Benign prostatic hyperplasia without lower urinary tract symptoms AMB Urinalysis Automated 01/18/23 Z13.9 - Encounter for screening, unspecified Medications: Changed From tamsulosin 0.4 mg PO DAILY 90 caps 1RF N40.1 - Benign prostatic hyperplasia with lower urinary tract symptoms, R35.1 - Nocturia To tamsulosin 0.4 mg PO DAILY 90 caps 3RF 90 days N40.1 - Benign prostatic hyperplasia with lower urinary tract symptoms, R35.1 - Nocturia Patient Instructions: The patient had an opportunity to ask questions regarding the treatment plan. All questions were answered. Physical exam, labs, and imaging were discussed and reviewed in detail. As well as risks, benefits, and discussion of treatment choices. No major barriers to understanding were identified. The patient expressed understanding and agreement with the above treatment plan. The patient was made aware they should contact our office by phone for worsening of their current condition, the appearance of new symptoms, or with any questions or concerns. Compliance is encouraged with any medications and follow up testing that is ordered. It is a privilege to be allowed the opportunity to participate in? your urological care.? Again, if you have any questions or concerns If you have any questions or concerns please do not hesitate to contact me. The office is [phone]. This note is constructed using voice recognition software. While every effort has been made to ensure accuracy it compliance analyst errors may have been included. Yours sincerely, KEMAR Booker Coding Level of Care Code New Pt Level 3 (19255) Diagnoses Benign prostatic hyperplasia with nocturia N40.1; R35.1 Lower urinary tract symptom detail: nocturia Lower urinary tract symptom presence: symptoms present CPT Codes Post Residual Void - PVR CPT Code: 20371-Qrwy Void Residual by ultrasound ([id number])
== END 2023-01-18 09:46 | disposition home or self-care (01) ==
PROVIDERS: PCP Physician Assistant; Visit Provider Nurse Practitioner Family
DX: N40.1 Benign prostatic hyperplasia with lower urinary tract symptoms (principal); R35.1 Nocturia
CPT/HCPCS: 99203

== ENCOUNTER → 2023-01-18 09:09 | Outpatient (BNVA) | payer OTHER, SELFPAY | PROVIDERS: PCP Physician Assistant; Visit Provider Nurse Practitioner Family | DX: N40.1 Benign prostatic hyperplasia with lower urinary tract symptoms (principal); R35.1 Nocturia | CPT/HCPCS: 51798; 81003; 99202 ==

== ENCOUNTER 2023-03-12 10:25 | Outpatient (AMB) | payer OTHER, SELFPAY ==
[2023-03-12 10:32] VITALS: BP 116/60; PULSE 69; O2SAT 97; BMI 28.4
--- NOTE | 2023-03-12 10:32 | A.OFFPC_ITS ---
Vital Signs 03/12/23 10:32 Height 5 ft 6 in Weight 176 lb BMI 28.4 BP 116/60 Blood Pressure Location Lt brachial Position Sitting Pulse 69 Pulse Source Pulse Oximeter Pulse Oximetry (%) 97 Oxygen Delivery Method Room Air Intake Visit Reasons: 3 month f/u Intake Note: pt is here for a follow up, requesting cardiology referral. Forensic Materials Engineer Required: No Sales Agent Casualty Insurance: Present Accompanied by: Self / Same As Patient Allergies No Known Allergies Allergy (Verified 03/12/23 10:47) Medication List - Last Reconciled 03/12/23 by Zander Macedo PA-C albuterol sulfate 90 mcg/actuation 2 puffs inhalation Q6H PRN aspirin 81 mg PO DAILY atenolol 100 mg PO DAILY 90 days atorvastatin 10 mg PO DAILY 90 days hydrochlorothiazide 12.5 mg PO DAILY loratadine 5 mg PO BID nifedipine ER 30 mg PO DAILY potassium chloride ER 20 mEq PO BID 90 days tamsulosin 0.4 mg PO DAILY 90 days Tobacco use date assessed: 03/12/23 Fall risk assessment: No Falls in past year Dental Screening Dental Screen Date: 03/12/23 Did you have a dental visit in the last 12 months?: Yes Did you have a dental problem in the last 6 months where you did not have access to dental care?: No Was dental information given to patient?: Patient has dentist HPI 3 month f/u HPI Details Patient Laboratory Tests 12/17/22 12:16 Fasting Glucose 115 H Hemoglobin A1c % 5.4 Cholesterol 155 is a 78-year-old male here today for follow-up visit. Patient's past medical history significant for BPH, hypertension, hyperlipidemia. He seems to be somewhat of a poor historian. He reports he was seeing urologist and a crystal machining coordinator while living in [place]. According to records did have cardiac catheterization in 2013 though no appearance stent have been placed. Continues on aspirin, beta-erasmo and statin therapy. Unclear as to why he was seeing a crystal machining coordinator while in [place]. He denies having had heart attack or stroke. .. Hypertension: On atenolol, nifedipine and hydrochlorothiazide, blood pressure are stable today in office. He denies any side effects. BPH: Patient continues on tamsulosin with good effect on his urinary flow. He would like to see urologist again for continued follow-up. 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 1. Little interest or pleasure in doing things: not at all 2. Feeling down, depressed, or hopeless: not at all 3. Trouble falling or staying asleep, or sleeping too much: not at all 4. Feeling tired or having little energy: not at all 5. Poor appetite or overeating: not at all 6. Feeling bad about yourself - or that you are a failure or have let yourself or your family down: not at all 7. Trouble concentrating on things, such as reading the newspaper or watching television: not at all 8. Moving or speaking so slowly that other people could have noticed. Or the opposite - being so fidgety or restless that you have been moving around a lot more than usual: not at all 9. Thoughts that you would be better off or of hurting yourself in some way: not at all Total score: 0 Depression Screening Interpretation: Negative Depression Screening Done: Yes 62888 - PHQ-9 Billing: Yes Source: Developed by Drs. Henrique Vaughn, Marcie Hoyos, Altaf Swanson and colleagues, with an educational jennifer from [employer]. Thrive Questionnaire Date Thrive assessed: 03/12/23 I am a: Patient What is your living situation today?: I have a steady place to live Within the past 12 months, did the food you bought not last and you didn't have the money to get more?: Never true Within the past 12 months, did you worry whether your food would run out before you got money to buy more?: Never true Do you have trouble paying for medicines?: No Do you have trouble getting transportation to medical appointments?: No Do you have trouble paying your heating and electricity bill?: No Do you have trouble taking care of your child, family member or friend?: No Do you have trouble with day-to-day activities such as bathing, preparing meals, shopping, managing finances, etc.?: No Are you currently unemployed and looking for a job?: No Are you interested in more education?: No Please select the resources that you would like help with: None THRIVE Score: 0 AUDIT C Alcohol Use Questionnaire (AUDIT-C) 1. How often do you have a drink containing alcohol?: Monthly or less 2. How many drinks containing alcohol do you have on a typical day when you are drinking?: 1 or 2 3. How often do you have six or more drinks on one occasion?: Never Total Score: 1 ALEXEI-7 AMB Questionnaire ALEXEI-7 Date ALEXEI - 7 assessed: 03/12/23 Feeling nervous, anxious, or on edge: 0 = Not at all Not being able to stop or control worryin = Not at all Worrying too much about different things: 0 = Not at all Trouble relaxin = Not at all Being so restless that it is hard to sit still: 0 = Not at all Becoming easily annoyed or irritable: 0 = Not at all Feeling afraid as if something awful might happen: 0 = Not at all Total ALEXEI-7 score (0-4 normal; 5-9 mild; 10-14 moderate; 15-21 severe): 0 Source: Developed by Drs. Henrique Vaughn, Marcie Hoyos, Altaf Swanson and colleagues, with an educational jennifer from [employer]. ALEXEI-7 Assessment Billing ALEXEI-7 Assessment Tool: ALEXEI-7 Assessment 29415 Review of Systems Const Denies headache(s) Eyes Denies loss of vision ENT Denies vertigo, Denies dizziness, Denies headache(s) and Denies sore throat Card Denies chest pain, Denies leg edema and Denies lightheadedness Resp Denies cough, Denies hemoptysis and Denies wheezing GI Denies abdominal pain, Denies melena, Denies constipation, Denies diarrhea and Denies vomiting Denies dysuria, Denies urinary frequency and Denies urinary urgency Musc Denies arthralgias, Denies joint swelling, Denies numbness and Denies tingling Neuro Denies Abnormal speech present, Denies behavioral changes, Denies vertigo, Denies dizziness, Denies headache(s), Denies loss of vision, Denies memory loss, Denies numbness and Denies tingling Psych Denies anxiety, Denies behavioral changes, Denies depression, Denies memory loss and Denies panic attacks Dalton/Lymph Denies easy bleeding and Denies easy bruising Aller/Immun Denies wheezing Physical exam (Primary Care) Vital Signs: Last Vital Signs Pulse 69 03/12/23 10:32 BP 116/60 03/12/23 10:32 Pulse Ox 97 03/12/23 10:32 Oxygen Delivery Method Room Air 03/12/23 10:32 BMI result Body Mass Index 28.4 Tobacco/Smoking Status: Tobacco use Status Tobacco use date assessed 03/12/23 03/12/23 10:33 Patient Tobacco Use Status Former Tobacco user 03/12/23 10:33 Tobacco use type Cigarette 03/12/23 10:33 e-Cigarette/Vaping Use Never Used 03/12/23 10:33 PHQ-9: PHQ-9 Score PHQ-9: Total score 0 03/12/23 10:33 Depression Screening Interpretation: Negative Thrive Assessment: Date of Thrive Assessment Date Thrive assessed 03/12/23 03/12/23 10:33 Const General: healthy appearing, no acute distress, alert and awake Nutritional Appearance: well nourished Orientation/consciousness: oriented to person, oriented to place and oriented to time HENMT Ears: TM's normal bilaterally General nose exam: Normal nasal mucous membranes and turbinates present Eyes Conjunctivae: conjunctivae normal Sclerae: sclerae normal Pupils: Equal, round and reactive pupils present Neck Neck: Yes no lymphadenopathy and Yes no JVD Thyroid: Thyroid normal Carotids: no bruits Resp Effort & Inspection: normal respiratory effort and not tachypneic Auscultation: no crackles, no rales, no rhonchi and no wheezes Cardio Rate: regular rate Rhythm: regular rhythm Heart sounds: no murmurs and normal S1 and S2 GI Palpation (GI): Soft to palpation, nontender, no hepatomegaly and no splenomegaly Auscultation: normal bowel sounds Skin General skin exam: no rashes or lesions noted and dry skin Neuro General: oriented to person, oriented to place and oriented to time Cranial nerves: Yes Equal, round and reactive pupils present Speech: No Abnormal speech present Gait exam (Neuro): Normal gait present Motor exam (neuro): no tremor noted Extrem Right upper extremity: full ROM Left upper extremity: full ROM Right lower extremity: full ROM; no edema Left lower extremity: full ROM; no edema Psych Mental Status: mental status grossly normal Speech and movement: Normal speech and movement present Affect: normal affect Attitude: cooperative Thought process: Normal thought process present Assessment and Plan Assessment & Plan (1) HTN (hypertension): Code(s): I10 - Essential (primary) hypertension Qualifiers: Hypertension type: primary hypertension Qualified Code(s): I10 - Essential (primary) hypertension Plan: Blood pressure acceptable today in office. Will continue him on atenolol, nifedipine and hydrochlorothiazide. Advised to monitor blood pressure at home to assure blood pressures are below 140/90. Of note had history of a cardiac catheterization while in [place] in 2013, apparently no stents have been placed. (2) BPH (benign prostatic hyperplasia): Code(s): N40.0 - Benign prostatic hyperplasia without lower urinary tract symptoms Qualifiers: Lower urinary tract symptom presence: symptoms present Lower urinary tract symptom detail: nocturia Qualified Code(s): N40.1 - Benign prostatic hyperplasia with lower urinary tract symptoms; R35.1 - Nocturia Plan: He reports no urinary symptoms. He has followed up with Urology. He does report Flomax has been helpful for him. Will continue to follow PSA on annual basis. (3) HLD (hyperlipidemia): Code(s): E78.5 - Hyperlipidemia, unspecified Qualifiers: Hyperlipidemia type: mixed hyperlipidemia Qualified Code(s): E78.2 - Mixed hyperlipidemia Plan: Patient continues on statin therapy. Will check his fasting lipid panel to assure appropriate total cholesterol and LDL. (4) Impaired glucose metabolism: Code(s): R73.09 - Other abnormal glucose Plan: Patient's most recent fasting blood sugar elevated at 113. A1c in stable range. Will continue to follow fasting blood sugar. Advised on low carbohydrate diet Orders: Orders Comprehensive [place]. Panel Fast Today I10 - Essential (primary) hypertension Complete Blood Count no Diff Today I10 - Essential (primary) hypertension Prostate Specific Antigen Scr Today I10 - Essential (primary) hypertension, Z12.5 - Encounter for screening for malignant neoplasm of prostate Hemoglobin A1c Today R73.09 - Other abnormal glucose Lipid Panel Today E78.2 - Mixed hyperlipidemia Coding Level of Care Code Est Pt Level 4 (66285) Diagnoses Primary hypertension I10 Hypertension type: primary hypertension Benign prostatic hyperplasia with nocturia N40.1; R35.1 Lower urinary tract symptom presence: symptoms present Lower urinary tract symptom detail: nocturia Mixed hyperlipidemia E78.2 Hyperlipidemia type: mixed hyperlipidemia Impaired glucose metabolism R73.09 Additional Codes ALEXEI-7 Assessment Billing - ALEXEI-7 Assessment Tool: ALEXEI-7 Assessment 12075 ( [id number])
== END 2023-03-12 11:06 | disposition home or self-care (01) ==
PROVIDERS: PCP Physician Assistant; Visit Provider Physician Assistant
DX: I10 Essential (primary) hypertension (principal); N40.1 Benign prostatic hyperplasia with lower urinary tract symptoms; R35.1 Nocturia; E78.2 Mixed hyperlipidemia; R73.09 Other abnormal glucose
CPT/HCPCS: 99214

== ENCOUNTER 2023-06-10 09:27 | Outpatient (REF) | payer OTHER, SELFPAY ==
[2023-06-10 10:01] LABS: Hematocrit 43.1 % (42.0-52.0); Mean Corpuscular HGB Conc 32.5 g/dl (31.0-36.0); Mean Corpuscular Hemoglobin 28.7 pg (27.0-33.0); Mean Corpuscular Volume 88.3 fL (80.0-98.0); Platelet Count 255 X10*3/uL (160-400); Red Blood Count 4.88 X10*6/uL (4.60-5.80); Red Cell Distribution Width 14.6 % (11.0-16.0); White Blood Count 6.4 X10*3/uL (4.8-10.8)
[2023-06-10 10:20] LABS: Estimated Average Glucose 114 mg/dL; Hemoglobin A1c % 5.6 % (<6.0)
[2023-06-10 10:56] LABS: Alanine Aminotransferase 21 U/L (0-40); Albumin Level 3.6 g/dL (3.5-5.0); Alkaline Phosphatase 69 U/L (39-117); Anion Gap 11 (12-20); Aspartate Amino Transferase 18 U/L (5-37); Bilirubin Total 0.8 mg/dL (0.0-1.0); Blood Urea Nitrogen 17 mg/dL (9-16); Calcium 9.1 mg/dL (8.4-10.2); Carbon Dioxide 27 mmol/L (22-29); Chloride 106 mmol/L (96-108); Cholesterol 153 mg/dL (<200); Estimated Glomerular Filt Rate 60; Glucose Fasting 115 mg/dL (60-99); HDL Cholesterol 36 mg/dL (>40); LDL Cholesterol Calculated 95 mg/dL (<100); Potassium 4.1 mmol/L (3.3-5.1); Sodium 140 mmol/L (135-145); Total Protein 7.1 g/dL (6.5-8.0); Triglycerides 111 mg/dL (<150)
[2023-06-10 11:08] LABS: Prostate Specific Antigen Scr 1.07 ng/mL (<0.05-4.0)
[2023-06-10 11:17] LABS: Creatinine Urine 130.92 mg/dL; Microalbum/Creatinine Ratio Ur 96.2 ug/mg cr (<30)
== END 2023-06-10 09:28 | disposition home or self-care (01) ==
LOC: HO.LAB 09:27
PROVIDERS: PCP Physician Assistant; Visit Provider Physician Assistant
DX: Z12.5 Encounter for screening for malignant neoplasm of prostate (principal); R80.9 Proteinuria, unspecified; R73.09 Other abnormal glucose; E78.2 Mixed hyperlipidemia; I10 Essential (primary) hypertension
CPT/HCPCS: 36415; 80053; 80061; 82043; 82570; 83036; 84153; 85027

== ENCOUNTER 2023-06-18 15:52 | Outpatient (AMB) | payer OTHER, SELFPAY ==
--- NOTE | 2023-06-18 16:11 | MHC.PC.OV ---
Vital Signs 06/18/23 16:17 Height 5 ft 6 in Weight 176 lb BMI 28.4 BP 128/60 Blood Pressure Location Lt brachial Position Sitting Pulse 65 Pulse Source Pulse Oximeter Pulse Oximetry (%) 95 Oxygen Delivery Method Room Air Intake Visit Reasons: Allergies/red, watery eyes Intake Note: The patient has presented with symptoms of itchy and watery eyes, suggestive of possible allergies. The left eye is experiencing the most irritation, with mild pain reported in the upper lid. Rx request for gout flare up. 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 He reports over the last week having a left eye irritation and itchiness. Has used antihistamine in [id number] eyedrops which have been helpful though continues to have Left eye redness and irritation. 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 Henrique Vaughn, Marcie Hoyos, Altaf Swanson and colleagues, with an educational jennifer from [employer]. Review of Systems Const Denies headache(s) Eyes Denies loss of vision ENT Denies vertigo, Denies dizziness, Denies headache(s) and Denies sore throat Card Denies chest pain, Denies leg edema and Denies lightheadedness Resp Denies cough, Denies hemoptysis and Denies wheezing GI Denies abdominal pain, Denies melena, Denies constipation, Denies diarrhea and Denies vomiting Denies dysuria, Denies urinary frequency and Denies urinary urgency Musc Denies arthralgias, Denies joint swelling, Denies numbness and Denies tingling Neuro Denies Abnormal speech present, Denies behavioral changes, Denies vertigo, Denies dizziness, Denies headache(s), Denies loss of vision, Denies memory loss, Denies numbness and Denies tingling Psych Denies anxiety, Denies behavioral changes, Denies depression, Denies memory loss and Denies panic attacks Dalton/Lymph Denies easy bleeding and Denies easy bruising Aller/Immun Denies wheezing Physical exam (Primary Care) Vital Signs: Last Vital Signs Pulse 65 06/18/23 16:17 BP 128/60 06/18/23 16:17 Pulse Ox 95 06/18/23 16:17 Oxygen Delivery Method Room Air 06/18/23 16:17 BMI result Body Mass Index 28.4 Tobacco/Smoking Status: Tobacco use Status Tobacco use date assessed 03/12/23 06/18/23 16:20 Patient Tobacco Use Status Former Tobacco user 06/18/23 16:20 Tobacco use type Cigarette 06/18/23 16:20 e-Cigarette/Vaping Use Never Used 06/18/23 16:20 Thrive Assessment: Date of Thrive Assessment Date Thrive assessed 03/12/23 06/18/23 16:20 Const General: healthy appearing, no acute distress, alert and awake Nutritional Appearance: well nourished Orientation/consciousness: oriented to person, oriented to place and oriented to time [facility] Ears: TM's normal bilaterally General nose exam: Normal nasal mucous membranes and turbinates present Eyes Other: LEFT EYE SCLERA AND CONJUNCTIVA SLIGHTLY ERYTHEMATOUS. Conjunctivae: conjunctivae normal Sclerae: abnormal sclerae and scleral abnormal Pupils: Equal, round and reactive pupils present Neck Neck: Yes no lymphadenopathy and Yes no JVD Thyroid: Thyroid normal Carotids: no bruits Resp Effort & Inspection: normal respiratory effort and not tachypneic Auscultation: no crackles, no rales, no rhonchi and no wheezes Cardio Rate: regular rate Rhythm: regular rhythm Heart sounds: no murmurs and normal S1 and S2 GI Palpation (GI): Soft to palpation, nontender, no hepatomegaly and no splenomegaly Auscultation: normal bowel sounds Skin General skin exam: no rashes or lesions noted and dry skin Neuro General: oriented to person, oriented to place and oriented to time Cranial nerves: Yes Equal, round and reactive pupils present Speech: No Abnormal speech present Gait exam (Neuro): Normal gait present Motor exam (neuro): no tremor noted Extrem Right upper extremity: full ROM Left upper extremity: full ROM Right lower extremity: full ROM; no edema Left lower extremity: full ROM; no edema Psych Mental Status: mental status grossly normal Speech and movement: Normal speech and movement present Affect: normal affect Attitude: cooperative Thought process: Normal thought process present Assessment and Plan Assessment & Plan (1) Conjunctivitis: Code(s): H10.9 - Unspecified conjunctivitis Qualifiers: Acute conjunctivitis type: bacterial Conjunctivitis type: acute Laterality: left Qualified Code(s): H10.32 - Unspecified acute conjunctivitis, left eye Plan: Patient's signs symptoms most consistent with conjunctivitis. Has been using allergy medication which has been helpful though I still red. Will supply patient with antibacterial eyedrops Medications: New polymyxin B sulf-trimethoprim 10,000 unit- 1 mg/mL while awake; do not exceed 6 doses in 24 hours 1 drp ophthalmic (eye) QID 10 mL 0RF 7 days H10.32 - Unspecified acute conjunctivitis, left eye, H10.9 - Unspecified conjunctivitis Coding Level of Care Code Est Pt Level 3 (50849) Diagnoses Acute bacterial conjunctivitis of left eye H10.32 Acute conjunctivitis type: bacterial Conjunctivitis type: acute Laterality: left
[2023-06-18 16:17] VITALS: BP 128/60; PULSE 65; O2SAT 95; BMI 28.4
== END 2023-06-18 17:26 | disposition home or self-care (01) ==
PROVIDERS: PCP Physician Assistant; Visit Provider Physician Assistant
DX: H10.32 Unspecified acute conjunctivitis, left eye (principal)
CPT/HCPCS: 99213

== ENCOUNTER 2023-07-05 10:45 | Observation (INO) | payer OTHER, SELFPAY ==
[2023-07-05] VITALS (7 sets, daily range): BP systolic 118–157; BP diastolic 53–70; PULSE 49–64; RESP 11–18; TEMP 36.4–37.1; O2SAT 96–99; BMI 28.2
--- NOTE | ~2023-07-05 | XR_ITS ---
EXAMINATION: XR CHEST 2 VIEW CLINICAL INFORMATION: Shortness of breath COMPARISON: None TECHNIQUE: PA and lateral views of the chest obtained. FINDINGS: The lungs are clear. There are no pleural effusions. The cardiomediastinal silhouette is normal. XR/XR chest 2V IMPRESSION: No acute cardiopulmonary disease.
--- NOTE | 2023-07-05 11:30 | ED_ITS ---
HPI - General Adult General Chief complaint: General Medical Stated complaint: R SIDE BACK PAIN CP Time Seen by Provider: 07/05/23 10:47 History of Present Illness HPI narrative: Patient is an 78-year-old male who presents to the emergency department via EMS for evaluation. He reports that after having breakfast this morning he presented outside to speak with his son. He was standing outside for approximately 15 minutes, his son was doing some gardening, patient denies any active gardening or activity for that matter. He states that suddenly he felt a severe tightness to his right upper back, felt beneath the shoulder blade and radiating into the right upper anterior chest. He felt suddenly very short of breath, and dizzy. He had a presyncopal episode, his son had to catch him from falling, and ultimately had to help him into the house and lie him down. Waited a few minutes but his symptoms persisted and he asked his son to call EMS. His symptoms had resolved before EMS arrived. Upon EMS transport he did admit to having a 2nd episode of chest/back tightness that lasted a few minutes, and nausea but no vomiting, recieved ASA. At this time, he denies current symptoms and he feels at his baseline. He denies any history of similar occurrences in the past. Denies any recent ill like symptoms. Related Data Home Medications ?Medication ?Instructions ?Recorded ?Confirmed aspirin 81 mg tablet,delayed 81 mg PO DAILY 10/04/22 03/12/23 release loratadine 5 mg disintegrating 5 mg PO BID 01/09/23 03/12/23 tablet colchicine 0.6 mg tablet 0.3 mg PO DAILY PRN 06/18/23 Previous Rx's ?Medication ?Instructions ?Recorded albuterol sulfate 90 mcg/actuation 2 puff inhalation Q6H PRN 01/09/23 aerosol inhaler shortness of breath or wheezing #6.7 grams tamsulosin 0.4 mg capsule 0.4 mg PO DAILY 90 days #90 caps 01/19/23 hydrochlorothiazide 12.5 mg capsule 12.5 mg PO DAILY 90 days #90 caps 03/19/23 atenolol 100 mg tablet 100 mg PO DAILY 90 days #90 tabs 05/29/23 atorvastatin 10 mg tablet 10 mg PO DAILY 90 days #90 tabs 05/29/23 nifedipine 30 mg tablet,extended 30 mg PO DAILY #90 tabs 06/12/23 release 24 hr polymyxin B sulfate 10,000 1 drp ophthalmic (eye) QID 7 days 06/18/23 unit-trimethoprim 1 mg/mL eye drops #10 mL Allergies Allergy/AdvReac Type Severity Reaction Status Date / Time No Known Allergies Allergy Verified 07/05/23 11:06 Review of Systems 2 Review of Systems: Yes all other systems are reviewed and are negative [facility] Past Medical History Attestation statement: The following information was validated with the patient. 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 No acute distress.?Normal affect. Eyes: Pupils equal, round and reactive to light.? ENT: Pharynx normal.?? Neck: Normal inspection.? Neck supple.?? CVS: Heart sounds normal. Bradycardia Pulses normal.?? Respiratory: No respiratory distress.? Lung sounds clear to auscultation bilaterally?? Abdomen: Protuberant rounded, but soft and nontender. Normoactive bowel sounds. No pulsatile mass.?? Skin: Skin warm and dry.? Normal skin color.? Extremities: No lower extremity edema.? No calf ttp? Neuro: Moves all extremities spontaneously. Sensation intact bilaterally. CN II- XII intact. No focal neuro deficits. Ambulates with normal steady gait. Course Reevaluation(s) Reevaluation #1: Nursing staff informs me that patient in fact did not receive aspirin pre- hospital, patient received 324 mg p.o., pending delta trop. Plan for admission to medicine service, spoke with hospitalist, Dr. Delatorre Medications Administered Discontinued Medications Generic Name Dose Route Start Last Admin Trade Name Freq PRN Reason Stop Dose Admin Aspirin 324 mg 07/05/23 14:32 07/05/23 14:44 Aspirin 81 Mg Tab.Chew PO 07/05/23 14:33 324 mg ONCE ONE Administration Medical Decision Making Medical Decision Making [facility] Narrative: Patient is an 78-year-old male with past medical history of hypertension, hyperlipidemia, BPH presenting to emergency department for evaluation sudden onset right back/chest pain and pre-syncope. At the time my evaluation symptoms had resolved. Examination is benign. CBC is without leukocytosis, reveals a normocytic anemia that does not meet transfusion criteria, no thrombocytopenia. D-dimer 229, less likely pulmonary embolism. Renal function at baseline. Transaminases within normal range. BNP 877, CXR without evidence of pulmonary congestion, no peripheral edema. High sensitive troponin of 4.8, EKG reveals sinus bradycardia with first-degree AV block; ventricular rate 53, SD interval 224 MS, QTC 442, no ST elevation, no ST depression, no T-wave inversion, no prior EKGs available for review. He is prescribed metoprolol and nifedipine. Admission/Observation Consideration of admission/observation: Escalation of care including admission/observation considered (See narrative above) Lab Data [facility] Lab Attestation statement: I reviewed the patient's lab results. (See narrative above) 07/05/23 12:07 07/05/23 12:07 Labs: Lab Results 07/05/23 07/05/23 Range/Units 12:07 14:07 WBC 7.1 (4.8-10.8) X10*3/uL RBC 4.48 L (4.60-5.80) X10*6/uL Hgb 13.1 L (14.0-18.0) g/dl Hct 39.9 L (42.0-52.0) % MCV 89.1 (80.0-98.0) fL MCH 29.2 (27.0-33.0) pg MCHC 32.8 (31.0-36.0) g/dl RDW 14.9 (11.0-16.0) % Plt Count 219 (160-400) X10*3/uL MPV 9.9 (9.4-12.4) fL Immature Gran % (Auto) 0.3 (0.0-0.4) % Neut % (Auto) 76.1 H (45-73) % Lymph % (Auto) 7.6 L (20-40) % [place] % (Auto) 8.5 (2-11) % Eos % (Auto) 7.1 H (0-4) % Baso % (Auto) 0.4 (0-2) % Lymph # (Auto) 0.5 L (1.2-4.9) X10*3/uL [place] # (Auto) 0.6 (0.1-1.2) X10*3/uL Eos # (Auto) 0.5 H (0.0-0.4) X10*3/uL Baso # (Auto) 0.0 (0.0-0.2) X10*3/uL Abs Immat Gran (auto) 0.02 (0.00-0.03) X10*3/uL Absolute Neuts (auto) 5.4 (2.0-8.3) x10*3/uL Absolute Nucleated RBC 0.000 (0.0-0.012) X10*3/uL Nucleated RBC % (auto) 0.0 (0.0-0.2) /100WBC PT 11.9 (11.1-13.3) SEC INR 1.0 (0.9-1.1) D-Dimer High Sensitivty 229 NG/ML Sodium 141 (135-145) mmol/L Potassium 3.8 (3.3-5.1) mmol/L Chloride 110 H (96-108) mmol/L Carbon Dioxide 24 (22-29) mmol/L Anion Gap 11 L (12-20) BUN 18 H (9-16) mg/dL Creatinine 1.10 (0.5-1.4) mg/dL Estim Creat Clear Calc 53.0 Estimated GFR > 60 Random Glucose 93 (60-115) mg/dL Calcium 8.9 (8.4-10.2) mg/dL Magnesium 2.1 (1.6-2.6) mg/dL Total Bilirubin 0.8 (0.0-1.0) mg/dL AST 17 (5-37) U/L ALT 19 (0-40) U/L Alkaline Phosphatase 64 (39-117) U/L Troponin I High Sens 4.8 4.1 (<3.5-35.0) ng/L B-Natriuretic Peptide 877 H (<100) pg/mL Total Protein 6.7 (6.5-8.0) g/dL Albumin 3.5 (3.5-5.0) g/dL Influenza Type A (PCR) NEGATIVE (Negative) Influenza Type B (PCR) NEGATIVE (Negative) RSV RNA Qual (PCR) NEGATIVE (Negative) SARS-CoV-2 RNA (RT-PCR) NEGATIVE (Negative) Independent Interpretation I performed an independent interpretation of an: Plain X-Ray (Flow pleural effusion, no infiltrates or consolidation) Radiology Impression Discussion of test interpretation with radiology: I have reviewed the radiologist's reading. Radiologist Impression: XR/XR chest 2V IMPRESSION: No acute cardiopulmonary disease. External Record Review External record reviewed: Outpatient record Discharge Plan Discharge Clinical Impression: Pre-syncope, First degree atrioventricular block Patient Disposition: Admitted As Inpatient
--- NOTE | 2023-07-05 11:31 | ECG_ITS ---
Test Reason : BACK PAIN Blood Pressure : / mmHG Vent. Rate : 053 BPM Atrial Rate : 053 BPM P-R Int : 224 ms QRS Dur : 098 ms QT Int : 450 ms P-R-T Axes : 014 001 054 degrees QTc Int : 422 ms Sinus bradycardia with 1st degree A-V block Otherwise normal ECG No previous ECGs available Referred By: Bella Adam Electronically Signed By:CAMERON THORNE MD
[2023-07-05 12:12] LABS: MANUAL DIFF FLAG NO
[2023-07-05 12:15] LABS: Basophils Percent Auto 0.4 % (0-2); Eosinophils Absolute Auto 0.5 X10*3/uL (0.0-0.4); Eosinophils Percent Auto 7.1 % (0-4); Hematocrit 39.9 % (42.0-52.0); Hemoglobin 13.1 g/dl (14.0-18.0); Imm Gran Abs Auto 0.02 X10*3/uL (0.00-0.03); Imm Gran Pct Auto 0.3 % (0.0-0.4); Lymphocytes Absolute Auto 0.5 X10*3/uL (1.2-4.9); Lymphocytes Percent Auto 7.6 % (20-40); Mean Corpuscular HGB Conc 32.8 g/dl (31.0-36.0); Mean Corpuscular Hemoglobin 29.2 pg (27.0-33.0); Mean Corpuscular Volume 89.1 fL (80.0-98.0); Mean Platelet Volume 9.9 fL (9.4-12.4); Monocytes Absolute Auto 0.6 X10*3/uL (0.1-1.2); Monocytes Percent Auto 8.5 % (2-11); Neutrophils Absolute Auto 5.4 x10*3/uL (2.0-8.3); Neutrophils Percent Auto 76.1 % (45-73); Platelet Count 219 X10*3/uL (160-400); Red Blood Count 4.48 X10*6/uL (4.60-5.80); Red Cell Distribution Width 14.9 % (11.0-16.0); White Blood Count 7.1 X10*3/uL (4.8-10.8)
[2023-07-05 12:21] LABS: Prothrombin Time 11.9 SEC (11.1-13.3)
[2023-07-05 12:23] LABS: D Dimer High Sensitivity 229 NG/ML
[2023-07-05 12:32] LABS: Alanine Aminotransferase 19 U/L (0-40); Albumin Level 3.5 g/dL (3.5-5.0); Alkaline Phosphatase 64 U/L (39-117); Anion Gap 11 (12-20); Aspartate Amino Transferase 17 U/L (5-37); Bilirubin Total 0.8 mg/dL (0.0-1.0); Blood Urea Nitrogen 18 mg/dL (9-16); Calcium 8.9 mg/dL (8.4-10.2); Carbon Dioxide 24 mmol/L (22-29); Chloride 110 mmol/L (96-108); Estimated Glomerular Filt Rate > 60; Glucose Random 93 mg/dL (60-115); Magnesium 2.1 mg/dL (1.6-2.6); Potassium 3.8 mmol/L (3.3-5.1); Sodium 141 mmol/L (135-145); Total Protein 6.7 g/dL (6.5-8.0)
[2023-07-05 12:38] LABS: B Type Natriuretic Peptide 877 pg/mL (<100)
[2023-07-05 12:40] LABS: Troponin-I High Sensitivity 4.8 ng/L (<3.5-35.0)
[2023-07-05 13:09] LABS: Influenza A PCR NEGATIVE (Negative); Influenza B PCR NEGATIVE (Negative); Resp Syncy Virus RNA Qual PCR NEGATIVE (Negative); SARS COV2 PCR INHOUSE NEGATIVE (Negative)
[2023-07-05 14:35] LABS: Troponin-I High Sensitivity 4.1 ng/L (<3.5-35.0)
[2023-07-05] MEDS: Aspirin 81 MG TAB.CHEW 324 MG PO (14:44)
--- NOTE | 2023-07-05 15:08 | P.HPHOSP_ITS ---
History of Present Illness Date of Service: 07/05/23 Attending physician on admission: Greg Mike Chief Complaint: Presyncopal episode Pt is an 78-year-old male with a PMH significant for?HTN, HLD, BPH, and hx of gout who presents to the ED for evaluation of lightheadedness, dizziness, and right-sided back and chest pain. Patient reports he was outside with his family doing yd work when he suddenly felt a pressure on the right side of his back that radiated to his right chest. Reports it felt like the pressure ?was in my lungs?. Patient then felt dizzy and a family member helped him into the house and then had him lie down on his bed. Patient then felt abdominal discomfort/cramping and the sudden urge to move his bowels. Patient rushed to the bathroom and had immediate relief of both abdominal discomfort and also dizziness. Chest and back pressure felt mildly better but soon increased and EMS was called. While in the ambulance experienced some nausea but no vomiting. Chest and back pressure resolved soon after arriving to the ED. in total, episode of dizziness lasted approximately 15 minutes and chest and back pressure approximately 1-2 hours. Patient reports has occasional leg swelling, though none recently. Denies any significant cardiac history. Denies any significant abdominal pain. No fever, chills. Patient denies any recent medication changes. Reports taking hydrochlorothiazide, nifedipine, and atenolol for many years. In the ED pt was bradycardic as low as 49, and initially hypertensive at 157/56. Orthostatics negative Labs were significant for BNP elevated at 877 but otherwise grossly unremarkable. No leukocytosis. Stable H&H. No significant electrolyte abnormalities. Initial troponin 4.8 with repeat flat at 4.1. Tested negative for influenza, RSV, COVID. CXR showed no acute cardiopulmonary disease. EKG demonstrated sinus bradycardia with first-degree AV block with no evidence of significant ST elevations or depressions. Pt was treated with aspirin. Pt will be admitted to the hospital under observation for further treatment and evaluation of presyncopal episode. Review of Systems 2 Review of Systems: Right-sided back and chest pressure Lightheadedness/dizziness Abdominal discomfort and cramping with episode of fecal urgency Nausea, no vomiting Denies fever, chills [facility] Medical History (Updated 07/05/23 @ 16:25 by Bella Adam CNP) History of fractured rib Gout flare Social History Housing: House Alcohol intake: current Alcohol intake frequency: holidays/special occasions only Alcohol type: beer Patient Tobacco Use Status: Former Tobacco user Quit Date: 1974 Tobacco use type: Cigarette e-Cigarette/Vaping Use: Never Used Advance Directives: No Advance Directives Information Provided: Yes Do you have a plan to hurt others: No Plan service: No 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 Cognitive needs: No Hearing needs: No Vision needs: No Meds Allergies Allergy/AdvReac Type Severity Reaction Status Date / Time No Known Allergies Allergy Verified 07/05/23 11:06 Home Medications ?Medication ?Instructions ?Recorded ?Confirmed ?Last Taken ?Type aspirin 81 mg tablet,delayed 81 mg PO DAILY 10/04/22 03/12/23 Unknown History release loratadine 5 mg disintegrating 5 mg PO BID 01/09/23 03/12/23 Unknown History tablet colchicine 0.6 mg tablet 0.3 mg PO DAILY PRN 06/18/23 Unknown History Physical Exam 2 Vital Signs and Narrative: Vital Signs: Last Vital Signs Temp 97.9 F 07/05/23 10:58 Pulse 57 07/05/23 13:02 Resp 18 07/05/23 10:58 BP 118/61 07/05/23 13:02 Pulse Ox 96 07/05/23 10:58 O2 Del Method Room Air 07/05/23 10:58 BMI result Body Mass Index 28.2 Constitutional: Alert, in no acute distress. Mental Status: Oriented to person, place and time. Eyes: Pupils are equal, round, and reactive to light. Ear, Nose, and Throat: Oropharynx clear, mucous membranes moist. Ears and nose without deformities. Trachea midline. Respiratory: Clear to auscultation bilaterally. No wheezing, rales, or rhonchi. Cardiovascular: S1, S2 regular. No murmurs, rubs, or gallops. Gastrointestinal: Abdomen soft, non-tender, non-distended. Normal bowel sounds. Neurologic: Cranial nerves II-XII are grossly intact bilaterally. No focal neurological deficits. Moves all extremities spontaneously. Skin: Warm, dry. Extremities: No edema. Psychiatric: Normal mood and affect. Results Labs 07/05/23 12:07 07/05/23 12:07 Labs: Laboratory Results - last 24 hr 07/05/23 07/05/23 12:07 14:07 MCV 89.1 MCH 29.2 MCHC 32.8 RDW 14.9 Plt Count 219 MPV 9.9 Immature Gran % (Auto) 0.3 Neut % (Auto) 76.1 H Lymph % (Auto) 7.6 L [place] % (Auto) 8.5 Eos % (Auto) 7.1 H Baso % (Auto) 0.4 Lymph # (Auto) 0.5 L [place] # (Auto) 0.6 Eos # (Auto) 0.5 H Baso # (Auto) 0.0 Abs Immat Gran (auto) 0.02 Absolute Neuts (auto) 5.4 Absolute Nucleated RBC 0.000 Nucleated RBC % (auto) 0.0 PT 11.9 INR 1.0 D-Dimer High Sensitivty 229 Anion Gap 11 L Estim Creat Clear Calc 53.0 Estimated GFR > 60 Random Glucose 93 Calcium 8.9 Magnesium 2.1 Total Bilirubin 0.8 AST 17 ALT 19 Alkaline Phosphatase 64 Troponin I High Sens 4.8 4.1 B-Natriuretic Peptide 877 H Total Protein 6.7 Albumin 3.5 Influenza Type A (PCR) NEGATIVE Influenza Type B (PCR) NEGATIVE RSV RNA Qual (PCR) NEGATIVE SARS-CoV-2 RNA (RT-PCR) NEGATIVE Imaging Radiologist's Impressions: Impressions Chest X-Ray 07/05/23 11:45 IMPRESSION: No acute cardiopulmonary disease. Assessment and Plan (1) Pre-syncope: Status: Acute Plan Pt is an 78-year-old male with a PMH significant for?HTN, HLD, BPH, and hx of gout who presents to the ED for evaluation of lightheadedness, dizziness, and right-sided back and chest pain. Pt will be admitted to the hospital under observation for further treatment and evaluation of presyncopal episode. Presyncopal episode Patient with right-sided back and chest pain, lightheadedness and dizziness, fecal urgency Etiology unclear: Differential includes vasovagal, cardiac Orthostatics negative, random glucose 93, RSV/COVID/flu negative Patient received IVF in the ED Echocardiogram Monitor on telemetry HTN Continue atenolol, nifedipine, hydrochlorothiazide HLD Continue statin Hx of gout Continue colchicine BPH Continue tamsulosin Full Code Attending:?Dr. Mike DVT Prophylaxis: Lovenox Patient will be admitted to the hospital under observation for treatment and further evaluation presyncopal episode. Patient will require hospitalization for overnight monitoring of cardiac function as well as vital signs. Quality Stroke Does the patient have a stroke diagnosis?: No VTE Prior VTE?: No VTE Risk Level:: Medical - moderate - high VTE Device Contraindication: Treatment Not Indicated VTE Drug Contraindication: N/A - Med Ordered
[2023-07-05] MEDS: 0.9 % Sodium Chloride Flush 3 ML SYRINGE IVFLUSH (17:39)
--- NOTE | 2023-07-05 17:51 | PHA.MEDREC ---
Pharmacy Consult ? Medication Reconciliation Pharmacy has completed the medication reconciliation. Spoke to patient at bedside, shingle packer utilized but was not actually needed. He was able to name all of his medications unprompted and eventually found a list in his wallet that did match his claim history. He said he is only due for atenolol and tamsulosin today
[2023-07-05] MEDS: Enoxaparin Sodium 40 MG/0.4 ML SYRINGE SUBCUT (18:18)
[2023-07-05] MEDS: Melatonin 3 MG TABLET 6 MG PO (21:35)
[2023-07-06] VITALS (7 sets, daily range): BP systolic 134–152; BP diastolic 58–73; PULSE 50–56; RESP 13–20; TEMP 36.7–36.9; O2SAT 95–99
--- NOTE | 2023-07-06 07:00 | CA_ITS ---
Transthoracic Echocardiogram Patient (Last, First, Middle): Max Keller Cruz Gender: Male Date of : 1945 Age: 78 Procedure Date: 07/06/2023 Procedure Type: Transthoracic Echocardiogram Location: ER Height: 167.64 cm Weight: 79.38 kg BSA: 1.89 m2 Heart Rate: bpm BP: 134 / 58 mmHg Nurse Head: JESSICA Referring MD: Hakan BACON Sketch Maker: Naveed Carrera MD Symptoms: Presyncopal episode, elevated BNP Study Quality: Good ECG Rhythm: Sinus Conclusions: - 1. Low normal LV ejection fraction 50-55% with mild LVH with impaired relaxation filling pattern 2. Moderately dilated left atrium 3. Mild aortic regurgitation 4. Normal RV systolic pressure 5. Mildly dilated ascending aorta at 3.7 cm 6. No pericardial effusion Findings Left Ventricle Normal left ventricular cavity size. There is mildly increased left ventricular wall thickness. The left ventricular systolic function is low normal. Spectral Doppler is indicative of an impaired relaxation filling pattern. E/E prime ratio is between 8 and 15 consistent with indeterminate filling pressures. Peak GLS is -16.8%, mildly reduced. Right Ventricle Normal right ventricular cavity size and systolic function. Atria The left atrium is moderately dilated. There is no evidence of interatrial shunt. The right atrium is normal in size. Aortic Valve There is mild calcification of the aortic valve. There is no aortic valve stenosis. There is mild aortic valve regurgitation. Mitral Valve There is mild anterior and posterior mitral leaflet thickening. There is trace mitral valve regurgitation. There is no mitral valve stenosis. Pulmonic Valve The pulmonic valve is likely normal. Tricuspid Valve Normal tricuspid valve structure. There is mild tricuspid valve regurgitation. The right ventricular systolic pressure is normal. The right ventricular systolic pressure is 23 mmHg. Normal right atrial pressure. There is no evidence of pulmonary hypertension. Great Vessels The pulmonary artery was not well visualized. There is mild dilatation of the ascending aorta measuring 3.70 cm. Venous The inferior vena cava is normal in size and collapses greater than 50% with inspiration. Pericardium/Pleural There is no evidence of pericardial effusion. Prior Study Comparison No prior study available for comparison. Measurements 2D Linear Measurements IVSd: 1.37 0.6-0.9/0.6-1.0 cm LVIDd: 4.86 3.9-5.3/4.2-5.9 cm LVIDd Index: 2.57 2.4-3.2/2.2-3.1 cm/m2 LVIDs: 3.27 2.0-3.6 cm LVPWd: 1.39 0.7-1.1 cm Ao Root: 3.60 2.1-3.5 cm LA Diam: 4.50 2.7-3.8/3.0-4.0 cm LAIDs Index: 2.38 1.5-2.3 cm/m2 LV Mass: 340.77 67-162/88-224 g LV Mass Index: 180.30 43-95/49-115 g/m2 LVOT Diam: 2.10 3.0+(-)1.3 cm 2D Systolic Function EF 4C: 55.40 >55% EF 2C: 49.30 >55% EF BiP: 50.90 >55% Mitral Valve MV Pk E: 0.59 MV PK A: 0.73 MV Decel Time: 223.00 E/A: 0.80 E'Lateral: 6.64 E'Medial: 4.35 E/E' Med: 13.60 E/E' Lat: 8.90 PHT: 65.00 MVA PHT: 3.38 Decel [place]: 2.65 Aortic Valve AoV Pk Kevyn: 1.46 AoV Mn Kevyn: 0.92 AoV VTI: 0.38 AoV Pk Grad: 9.00 Aov Mn Grad: 4.00 TYRESE Cont.VTI: 1.88 LVOT LVOT Pk Kevyn: 0.79 LVOT Mn Kevyn: 0.51 LVOT VTI: 0.20 LVOT Pk Grad: 2.00 LVOT Mn Grad: 1.00 LVOT Diam: 2.10 LVOT Area: 3.46 Diastolic Function MV Pk E: 0.59 MV Pk A: 0.73 E/A: 0.80 E'Medial: 4.35 E/E' Med: 13.60 E' Laterial: 6.64 E/E' Lat: 8.90 Right Ventricle TAPSE (mm): 30.00 TVS' Kevyn: 9.00 Tricuspid Valve TR Pk Kevyn: 2.21 TR Pk Grad: 20.00 RA Press: 3.00 RVSP: 23.00 Great Vessels Aorta Ao Root-2D: 3.60 2.0-3.7 cm Ao Asc: 3.70 2.1-3.4 cm Pulmonary Valve PV Pk Kevyn: 0.72 Peak PV Grad: 2.00 Updated in Other Vendor System with Status of Final Naveed Carrera MD electronically signed on 07/06/2023 2:50:05 PM with status of Final
[2023-07-06] MEDS: 0.9 % Sodium Chloride Flush 3 ML SYRINGE IVFLUSH (07:38)
--- NOTE | 2023-07-06 07:45 | PC.NURSE ---
resumed care of patient at 0700, he is currently resting in place, IV placed in left forearm. Pt sat up to eat breakfast. Denies CP/SOB/n/v/d. Awaiting bed placement at this time
[2023-07-06] MEDS: Aspirin Enteric Coated 81 MG TABLET.DR PO (08:58)
[2023-07-06] MEDS: Atorvastatin Calcium 10 MG TABLET PO (08:58)
[2023-07-06] MEDS: NIFEdipine ER 30 MG TAB.ER.24 PO (11:49)
--- NOTE | 2023-07-06 12:40 | P.DS_ITS ---
DS: Providers Provider Date of Service: 07/06/23 Date of admission: 07/05/23 15:52 Primary care physician: Zander Macedo PA-C DS: Diagnosis Discharge Diagnosis (1) Pre-syncope: Status: Acute DS: Summary Hospital Course Hospital Course: History of presenting illness; Date of Service: 07/05/23 Attending physician on admission: Greg Mike Chief Complaint: Presyncopal episode Pt is an 78-year-old male with a PMH significant for?HTN, HLD, BPH, and hx of gout who presents to the ED for evaluation of lightheadedness, dizziness, and right-sided back and chest pain. Patient reports he was outside with his family doing yd work when he suddenly felt a pressure on the right side of his back that radiated to his right chest. Reports it felt like the pressure ?was in my lungs?. Patient then felt dizzy and a family member helped him into the house and then had him lie down on his bed. Patient then felt abdominal discomfort/cramping and the sudden urge to move his bowels. Patient rushed to the bathroom and had immediate relief of both abdominal discomfort and also dizziness. Chest and back pressure felt mildly better but soon increased and EMS was called. While in the ambulance experienced some nausea but no vomiting. Chest and back pressure resolved soon after arriving to the ED. in total, episode of dizziness lasted approximately 15 minutes and chest and back pressure approximately 1-2 hours. Patient reports has occasional leg swelling, though none recently. Denies any significant cardiac history. Denies any significant abdominal pain. No fever, chills. Patient denies any recent medication changes. Reports taking hydrochlorothiazide, nifedipine, and atenolol for many years. In the ED pt was bradycardic as low as 49, and initially hypertensive at 157/56. Orthostatics negative Labs were significant for BNP elevated at 877 but otherwise grossly unremarkable. No leukocytosis. Stable H&H. No significant electrolyte abnormalities. Initial troponin 4.8 with repeat flat at 4.1. Tested negative for influenza, RSV, COVID. CXR showed no acute cardiopulmonary disease. EKG demonstrated sinus bradycardia with first-degree AV block with no evidence of significant ST elevations or depressions. Pt was treated with aspirin. Pt will be admitted to the hospital under observation for further treatment and evaluation of presyncopal episode. Hospital course: Presyncope 78-year-old male with a PMH significant for?HTN, HLD, BPH, and hx of gout who presents to the ED for evaluation of lightheadedness, dizziness, right-sided back and right sided chest pain, and fecal urgency admitted to the hospital under observation for further treatment and evaluation of presyncopal episode, patient underwent extensive work up, his orthostatic blood pressures were negative, blood sugar was 93, RSV/COVID/flu was negative, tele monitor showed no arrhythmia, echocardiogram showed an EF 50-55% moderately dilated left atrium, indeterminate filling pressures, patient remained hemodynamically stable ,, likely had vasovagal episode therefore being discharged home with recommendation to continue all home medications. HTN BP stable, Continue atenolol, nifedipine, hydrochlorothiazide HLD Continue statin. Hx of gout, no acute flare noted continue colchicine. BPH recommend to Continue tamsulosin. Time Attestation Discharge Coordination Time (in mins): 38 Quality: Safe Use of Opioids Does Pt have an Active Cancer Diagnosis on the Problem List?: No Quality: Stroke Does the patient have a stroke diagnosis?: No Physical Exam Vital Signs: Vital Signs: Last Vital Signs Temp 98.1 F 07/06/23 10:43 Pulse 50 07/06/23 10:43 Resp 13 07/06/23 10:43 BP 142/62 H 07/06/23 11:49 Pulse Ox 97 07/06/23 10:43 O2 Del Method Room Air 07/06/23 10:43 BMI result Body Mass Index 28.2 Const: Other: General awake alert x3, in no acute distress. Anicteric sclera Neck supple no JVD. CVS regular rate rhythm, Respiratory lungs clear to auscultation, no respiratory distress, no wheeze, no rhonchi. Gastrointestinal abdomen soft, non tender, bowel sounds audible. Extremities no edema. Neuro non focal Skin no rash Psych appropriate affect DS: Data Data Completed and Pending Labs on day of discharge: Laboratory Results - last 24 hr 07/05/23 07/05/23 12:07 14:07 Troponin I High Sens 4.8 4.1 Influenza Type A (PCR) NEGATIVE Influenza Type B (PCR) NEGATIVE RSV RNA Qual (PCR) NEGATIVE SARS-CoV-2 RNA (RT-PCR) NEGATIVE Discharge Plan Discharge Patient Disposition: Home, Self-Care Discharge Diagnosis: Presyncope Referrals: [place],Zander, PA-C [Primary Care Provider] - 1 Week Discharge Medications: Continued atorvastatin 10 mg tablet 10 mg PO DAILY 90 Days Qty: 90 1RF nifedipine 30 mg tablet extended release 24hr 30 mg PO DAILY Qty: 90 1RF atenolol 100 mg tablet 100 mg PO BEDTIME tamsulosin 0.4 mg capsule 0.4 mg PO BEDTIME polymyxin B sulf-trimethoprim 10,000 unit- 1 mg/mL drops 1 drp ophthalmic (eye) QID PRN (Reason: Itching) Rx Instructions: while awake; do not exceed 6 doses in 24 hours loratadine 5 mg tablet,disintegrating 5 mg PO DAILY PRN (Reason: Allergic Symptoms) colchicine 0.6 mg tablet 0.3 mg PO DAILY PRN (Reason: gout flare up) aspirin 81 mg tablet,delayed release (DR/EC) 81 mg PO DAILY Discontinued hydrochlorothiazide 12.5 mg capsule 12.5 mg PO DAILY 90 Days Qty: 90 1RF potassium chloride 20 mEq tablet extended release 20 meq PO BID Discharge Orders: Discharge Order (Routine); Ordered 07/06/23 Ordered By: Elsa Graves Diet: Low fat, low cholesterol Activity on Discharge: As tolerated Stand Alone Forms: Patient Portal Discharge page Print Language: Monegasque Care Plan Goals: Presyncope ? vasovagal Follow blood pressure at home, if noted to have elevated blood pressure follow- up with primary care physician, to adjust medications Discontinue hydrochlorothiazide and potassium replacement Health Concerns: Hypertension Plan of Treatment: Outpatient follow-up with primary care physician, call for appointment Assessment: as above Discharge Date/Time: 07/06/23 19:22
--- NOTE | 2023-07-06 14:21 | MHC.CM.PN ---
WILBUR 07/05. Pt self-care, lives at home with his son. Pts son will transport him home at discharge. Pt states he will talk to his son about being the HCP, but did not complete form today. PCP: Zander BACON
== END 2023-07-06 19:22 | disposition home or self-care (01) ==
LOC: HO.ED 12:48 → HO.EDOVER 16:15
PROVIDERS: Nurse Practitioner Family; Admitting Provider Student in an Organized Health Care Education/Training Program; Emergency Provider Emergency Medicine; PCP Physician Assistant; Visit Provider Hospitalist
DX: R55 Syncope and collapse (principal); R06.02 Shortness of breath; I44.30 Unspecified atrioventricular block; I10 Essential (primary) hypertension; E78.5 Hyperlipidemia, unspecified; N40.0 Benign prostatic hyperplasia without lower urinary tract symptoms; R07.9 Chest pain, unspecified; D64.9 Anemia, unspecified; M54.9 Dorsalgia, unspecified; M10.9 Gout, unspecified; Z79.899 Other long term (current) drug therapy; Z03.818 Encounter for observation for suspected exposure to other biological agents ruled out
CPT/HCPCS: 0241U; 36415; 71046; 80053; 83735; 83880; 84484; 85025; 85379; 85610; 93005; 93306; 93356; 96372; 99222; 99285; J1650; Q9957

== ENCOUNTER → 2023-07-05 11:31 | Outpatient (BNV) | payer OTHER, SELFPAY | PROVIDERS: Admitting Provider Student in an Organized Health Care Education/Training Program; Emergency Provider Emergency Medicine; PCP Physician Assistant; Visit Provider Internal Medicine Cardiovascular Disease | DX: R00.1 Bradycardia, unspecified (principal); I44.0 Atrioventricular block, first degree; M54.9 Dorsalgia, unspecified | CPT/HCPCS: 93010 ==

== ENCOUNTER 2023-07-05 15:52 | Outpatient (BNV) | payer OTHER, SELFPAY | END 2023-07-06 07:00 | PROVIDERS: Admitting Provider Student in an Organized Health Care Education/Training Program; Emergency Provider Emergency Medicine; PCP Physician Assistant; Visit Provider Internal Medicine Cardiovascular Disease | DX: I36.1 Nonrheumatic tricuspid (valve) insufficiency (principal); I35.1 Nonrheumatic aortic (valve) insufficiency | CPT/HCPCS: 93306; 93356 ==

== ENCOUNTER → 2023-07-05 15:52 | Outpatient (BNV) | payer OTHER, SELFPAY | PROVIDERS: Admitting Provider Student in an Organized Health Care Education/Training Program; Emergency Provider Emergency Medicine; PCP Physician Assistant; Visit Provider Hospitalist | DX: R55 Syncope and collapse (principal) | CPT/HCPCS: 99222; 99239 ==

== ENCOUNTER 2023-07-11 10:59 | Outpatient (AMB) | payer OTHER, SELFPAY ==
[2023-07-11 11:06] VITALS: BP 128/60; PULSE 62; O2SAT 95; BMI 28.4
--- NOTE | 2023-07-11 11:06 | A.OFFPC_ITS ---
Vital Signs 07/11/23 11:06 Height 5 ft 6 in Weight 176 lb 2 oz BMI 28.4 BP 128/60 Blood Pressure Location Lt brachial Position Sitting Pulse 62 Pulse Source Pulse Oximeter Pulse Oximetry (%) 95 Oxygen Delivery Method Room Air Intake Visit Reasons: f/u HTN/ HLD Intake Note: [place] is [place] [facility] [place] for Pre-syncope, First degree atrioventricular block. Marketing Secretary Required: No Accompanied by: Self / Same As Patient Allergies No Known Allergies Allergy (Verified 07/11/23 11:20) Medication List - Last Reconciled 07/11/23 by Zander Macedo PA-C aspirin 81 mg PO DAILY atenolol 100 mg PO BEDTIME atorvastatin 10 mg PO DAILY 90 days colchicine 0.3 mg PO DAILY PRN loratadine 5 mg PO DAILY PRN nifedipine ER 30 mg PO DAILY polymyxin B sulf-trimethoprim 10,000 unit- 1 mg/mL 1 drp ophthalmic (eye) QID PRN tamsulosin 0.4 mg PO BEDTIME Tobacco use date assessed: 03/12/23 Dental Screening Dental Screen Date: 03/12/23 HPI f/u HTN/ HLD HPI Details Patient is a 78-year-old male here today for hospital discharge follow- up. Patient's past medical history significant for BPH, hypertension, hyperlipidemia. He seems to be somewhat of a poor historian. Patient admitted to [facility] for acute lightheadedness, dizziness in rig ht-sided back pain and chest pain. His workup included an echocardiogram that showed appropriate EF at 50-55% with moderately dilated left atrium. Did have elevated BNP Did have EKG that did not show any arrhythmia. Did have orthostatic blood pressures evaluation though were negative. His hydrochlorothiazide was discontinued. Chronic medical conditions--> Hypertension: On atenolol, nifedipine . blood pressure are stable today in office. He denies any side effects. BPH: Patient continues on tamsulosin with good effect on his urinary flow. He would like to see urologist again for continued follow-up. 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 1. Little interest or pleasure in doing things: not at all 2. Feeling down, depressed, or hopeless: not at all 3. Trouble falling or staying asleep, or sleeping too much: not at all 4. Feeling tired or having little energy: not at all 5. Poor appetite or overeating: not at all 6. Feeling bad about yourself - or that you are a failure or have let yourself or your family down: not at all 7. Trouble concentrating on things, such as reading the newspaper or watching television: not at all 8. Moving or speaking so slowly that other people could have noticed. Or the opposite - being so fidgety or restless that you have been moving around a lot more than usual: not at all 9. Thoughts that you would be better off or of hurting yourself in some way: not at all Total score: 0 Depression Screening Interpretation: Negative Depression Screening Done: Yes 57413 - PHQ-9 Billing: Yes Source: Developed by Drs. Henrique Vaughn, Marcie Hoyos, Altaf Swanson and colleagues, with an educational jennifer from [employer]. Thrive Questionnaire Date Thrive assessed: 07/06/23 ALEXEI-7 AMB Questionnaire ALEXEI-7 Date ALEXEI - 7 assessed: 03/12/23 Source: Developed by Drs. Henrique Vaughn, Marcie Hoyos, Altaf Swanson and colleagues, with an educational jennifer from [employer]. Review of Systems Const Denies headache(s) Eyes Denies loss of vision ENT Denies vertigo, Denies dizziness, Denies headache(s) and Denies sore throat Card Denies chest pain, Denies leg edema and Denies lightheadedness Resp Denies cough, Denies hemoptysis and Denies wheezing GI Denies abdominal pain, Denies melena, Denies constipation, Denies diarrhea and Denies vomiting Denies dysuria, Denies urinary frequency and Denies urinary urgency Musc Denies arthralgias, Denies joint swelling, Denies numbness and Denies tingling Neuro Denies Abnormal speech present, Denies behavioral changes, Denies vertigo, Denies dizziness, Denies headache(s), Denies loss of vision, Denies memory loss, Denies numbness and Denies tingling Psych Denies anxiety, Denies behavioral changes, Denies depression, Denies memory loss and Denies panic attacks Dalton/Lymph Denies easy bleeding and Denies easy bruising Aller/Immun Denies wheezing Physical exam (Primary Care) Vital Signs: Last Vital Signs Pulse 62 07/11/23 11:06 BP 128/60 07/11/23 11:06 Pulse Ox 95 07/11/23 11:06 Oxygen Delivery Method Room Air 07/11/23 11:06 BMI result Body Mass Index 28.4 Tobacco/Smoking Status: Tobacco use Status Tobacco use date assessed 03/12/23 07/11/23 11:10 Patient Tobacco Use Status Former Tobacco user 07/11/23 11:10 Tobacco use type Cigarette 07/11/23 11:10 e-Cigarette/Vaping Use Never Used 07/11/23 11:10 PHQ-9: PHQ-9 Score PHQ-9: Total score 0 07/11/23 11:20 Depression Screening Interpretation: Negative Thrive Assessment: Date of Thrive Assessment Date Thrive assessed 07/06/23 07/11/23 11:10 Const General: healthy appearing, no acute distress, alert and awake Nutritional Appearance: well nourished Orientation/consciousness: oriented to person, oriented to place and oriented to time HENMT Ears: TM's normal bilaterally General nose exam: Normal nasal mucous membranes and turbinates present Eyes Conjunctivae: conjunctivae normal Sclerae: sclerae normal Pupils: Equal, round and reactive pupils present Neck Neck: Yes no lymphadenopathy and Yes no JVD Thyroid: Thyroid normal Carotids: no bruits Resp Effort & Inspection: normal respiratory effort and not tachypneic Auscultation: no crackles, no rales, no rhonchi and no wheezes Cardio Rate: regular rate Rhythm: regular rhythm Heart sounds: no murmurs and normal S1 and S2 GI Palpation (GI): Soft to palpation, nontender, no hepatomegaly and no splenomegaly Auscultation: normal bowel sounds Skin General skin exam: no rashes or lesions noted and dry skin Neuro General: oriented to person, oriented to place and oriented to time Cranial nerves: Yes Equal, round and reactive pupils present Speech: No Abnormal speech present Gait exam (Neuro): Normal gait present Motor exam (neuro): no tremor noted Extrem Right upper extremity: full ROM Left upper extremity: full ROM Right lower extremity: full ROM; no edema Left lower extremity: full ROM; no edema Psych Mental Status: mental status grossly normal Speech and movement: Normal speech and movement present Affect: normal affect Attitude: cooperative Thought process: Normal thought process present Assessment and Plan Assessment & Plan (1) Hospital discharge follow-up: Code(s): Z09 - Encounter for follow-up examination after completed treatment for conditions other than malignant neoplasm Plan: As per HPI (2) Cardiomyopathy: Code(s): I42.9 - Cardiomyopathy, unspecified Qualifiers: Cardiomyopathy type: unspecified Qualified Code(s): I42.9 - Cardiomyopathy, unspecified Plan: As per HPI patient admitted for acute dizziness and disorientation. He was found to have moderately dilated atrium and an appropriate EF on echocardiogram. BNP was elevated. Will refer to cardiology for further workup on his cardiomyopathy. Orders: Orders NT-proBNP 07/11/23 I42.9 - Cardiomyopathy, unspecified Hemoglobin A1c 07/11/23 R73.09 - Other abnormal glucose Comprehensive Daniel. Panel Fast 07/11/23 I10 - Essential (primary) hypertension Lipid Panel 07/11/23 E78.2 - Mixed hyperlipidemia Referrals Cardiology Referral I42.9 - Cardiomyopathy, unspecified Medications: Changed From colchicine 0.3 mg PO DAILY PRN gout flare up M10.9 - Gout, unspecified To colchicine 0.3 mg (1/2 x 0.6 mg) PO DAILY PRN 7 tabs 0RF gout flare up 14 days M10.9 - Gout, unspecified Coding Level of Care Code Est Pt Level 4 (89848) Diagnoses Hospital discharge follow-up Z09 Cardiomyopathy, unspecified type I42.9 Cardiomyopathy type: unspecified
== END 2023-07-11 11:35 | disposition home or self-care (01) ==
PROVIDERS: PCP Physician Assistant; Visit Provider Physician Assistant
DX: Z09 Encounter for follow-up examination after completed treatment for conditions other than malignant neoplasm (principal); I42.9 Cardiomyopathy, unspecified
CPT/HCPCS: 99214

== ENCOUNTER 2023-10-11 13:31 | Outpatient (REF) | payer OTHER, SELFPAY ==
[2023-10-11 14:19] LABS: Estimated Average Glucose 114 mg/dL; Hemoglobin A1c % 5.6 % (<6.0)
[2023-10-11 15:00] LABS: Alanine Aminotransferase 22 U/L (0-40); Albumin Level 3.6 g/dL (3.5-5.0); Alkaline Phosphatase 81 U/L (39-117); Anion Gap 10 (12-20); Aspartate Amino Transferase 21 U/L (5-37); Bilirubin Total 0.7 mg/dL (0.0-1.0); Blood Urea Nitrogen 17 mg/dL (9-16); Calcium 8.7 mg/dL (8.4-10.2); Carbon Dioxide 24 mmol/L (22-29); Chloride 112 mmol/L (96-108); Cholesterol 161 mg/dL (<200); Estimated Glomerular Filt Rate > 60; Glucose Fasting 107 mg/dL (60-99); HDL Cholesterol 44 mg/dL (>40); LDL Cholesterol Calculated 94 mg/dL (<100); Potassium 3.7 mmol/L (3.3-5.1); Sodium 142 mmol/L (135-145); Total Protein 6.9 g/dL (6.5-8.0); Triglycerides 117 mg/dL (<150)
[2023-10-15 20:29] LABS: NT-proBNP 666 pg/mL (<450)
== END 2023-10-11 13:32 | disposition home or self-care (01) ==
LOC: HO.LAB 13:31
PROVIDERS: PCP Physician Assistant; Visit Provider Physician Assistant
DX: I10 Essential (primary) hypertension (principal); I42.9 Cardiomyopathy, unspecified; R73.09 Other abnormal glucose; E78.2 Mixed hyperlipidemia
CPT/HCPCS: 36415; 80053; 80061; 83036; 83880

== ENCOUNTER 2023-10-14 10:56 | Outpatient (AMB) | payer OTHER, SELFPAY ==
[2023-10-14 11:06] VITALS: BP 164/68; PULSE 62; O2SAT 96; BMI 28.5
--- NOTE | 2023-10-14 11:06 | A.OFFPC_ITS ---
Vital Signs 10/14/23 11:06 Height 5 ft 6 in Blood Pressure Location Lt brachial Position Sitting Pulse Source Pulse Oximeter Oxygen Delivery Method Room Air Intake Visit Reasons: Annual Wellness Exam Allergies No Known Allergies Allergy (Verified 07/11/23 11:20) Tobacco use date assessed: 03/12/23 Dental Screening Dental Screen Date: 03/12/23 [facility] Medical History (Updated 07/14/23 @ 00:02 by Trisha Jose) History of fractured rib Gout flare Social History Housing: House Alcohol intake: current Alcohol intake frequency: holidays/special occasions only Alcohol type: beer Patient Tobacco Use Status: Former Tobacco user Tobacco use type: Cigarette e-Cigarette/Vaping Use: Never Used service: No 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 Henrique Vaughn, Marcie Hoyos, Altaf Swanson and colleagues, with an educational jennifer from [employer]. Physical exam (Primary Care) Tobacco/Smoking Status: Tobacco use Status Tobacco use date assessed 03/12/23 07/11/23 11:10 Patient Tobacco Use Status Former Tobacco user 07/11/23 11:10 Tobacco use type Cigarette 07/11/23 11:10 e-Cigarette/Vaping Use Never Used 07/11/23 11:10 Thrive Assessment: Date of Thrive Assessment Date Thrive assessed 07/06/23 07/11/23 11:10 Coding
--- NOTE | 2023-10-14 11:24 | AM.OFFVISMDC ---
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 Required: Yes Industrial Hire Sales Assistant Language: Montenegrin Accompanied by: Self / Same As Patient Allergies No Known Allergies Allergy (Verified 10/14/23 11:30) Medication List - Last Reconciled 10/14/23 by Zander Macedo PA-C aspirin 81 mg PO DAILY atenolol 100 mg PO BEDTIME atorvastatin 10 mg PO DAILY 90 days colchicine 0.3 mg (1/2 x 0.6 mg) PO DAILY PRN 14 days loratadine 5 mg PO DAILY PRN nifedipine ER 30 mg PO DAILY polymyxin B sulf-trimethoprim 10,000 unit- 1 mg/mL 1 drp ophthalmic (eye) QID PRN tamsulosin 0.4 mg PO BEDTIME HPI Annual Wellness Exam HPI Details Patient is a 78-year-old male here today for annual wellness visit Patient's past medical history significant for BPH, hypertension, hyperlipidemia. He seems to be somewhat of a poor historian. Today we reviewed his blackfeet of care. He was given a MOLST form We also reviewed his comprehensive care plan which was scanned Vaccines: Needs pneumonia and tetanus ( declines tetanus today) Colorectal cancer screening: Was done in his later 70s while in [place]. Laboratory Tests 07/05/23 10/11/23 12:07 13:39 RBC 4.48 L Hgb 13.1 L Creatinine 1.02 Hemoglobin A1c % 5.6 Cholesterol 161 LDL Cholesterol, C alc 94 HPI Comments History of Present Illness Details reviewed past medical history- yes reviewed surgical / hospitalization history- yes reviewed current medications- yes reviewed family history- yes home safety throw rugs? grab bars? raised toilet seat? working smoke detectors? activities of daily living difficulty bathing or showering? difficulty dressing? difficulty using the toilet? difficulty getting in and out of bed? difficulty walking? receives help from other person's with any of the above tasks? instrumental activities of daily living uses telephone - gets to place out of walking distance- go shopping for groceries- repairs own meals- does own minor home maintenance- does own laundry- does own housework- manages own money- currently takes medication- end of life planning discussed advanced directives- yes advanced directives on file? discussed wishes expressed in advanced directives. fall risk have you had any falls with injuries in the past year? have you had 2 or more falls in the past year? 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 Cognitive needs: No Hearing needs: No Vision needs: No Questionnaire Medicare Wellness Checkup What is your age?: 78 or older What gender do you identify with?: male During the past 4 weeks, how much have you been bothered by emotional problems such as feeling anxious, depressed, irritable, sad or downhearted, and blue?: moderately During the past 4 weeks, has your physical & emotional health limited your social activities with family, friends, neighbors, or groups?: not at all During the past 4 weeks, how much bodily pain have you generally had?: very mild pain During the past 4 weeks, was someone available to help you if you needed & wanted help?: yes, a little During the past 4 weeks, what was the hardest physical activity you could do for at least 2 minutes?: moderate Can you get to places out of walking distance without help? (For eg., can you travel alone on buses, taxis or drive your car?): Yes Can you go shopping for groceries or clothes without someone's help?: Yes Can you prepare your own meals?: Yes Can you do your housework without help?: Yes Because of any health problems, do you need the help of another person with your personal care needs such as eating, bathing, dressing or getting around the house?: No Can you handle your own money without help?: Yes During the past 4 weeks, how would you rate your health in general?: good During the past 4 weeks how have things been going for you?: pretty well Are you having difficulties driving your car?: no Do you always fasten your seat belt when you are in a car?: yes, usually During past 4 weeks, have you been bothered by the following: never: Falling or dizzy when standing up, Sexual problems?, Trouble eating well?, Teeth or denture problems?, Problems using the telephone? and Tiredness or fatigue? Have you fallen 2 or more times in the past year?: No Are you afraid of falling?: No Are you a smoker?: no During the past 4 weeks, how many drinks of wine, beer, or other alcoholic beverages did you have?: 1 drink or less per week Do you exercise for about 20 minutes 3 or more times a week?: yes, most of the time Have you been given information to help with the following?: yes: Keeping track of your medications? and no: Hazards in your house that might hurt you? How often do you have trouble taking medicines the way you have been told to take them?: I always take medicine as prescribed What is your race?: or origin or descent Mini Mental State Exam (MMSE) Orientation What is the (year) (season) (date) (day) (month)?: year and date Where are we (state) (county) (town or city) (hospital) (floor)?: state Attention & Calculation (CHOOSE ONE) Spell WORLD backwards (DLROW): 5 letters Score Score: 8 Activity of Daily Living Bathing - sponge bath, tub bath or shower: receives no assistance (gets in/out by self, if usual bathing means Dressing - getting clothes from closets & drawers, including inner/outer garments & fasteners.: gets clothes & gets completely dressed without help Toileting - going to the 'toilet room' for urine/bowel elimination & cleaning self/arranging clothes: goes to toilet room, cleans self, arranges clothes without help Transfer: moves in & out of bed and chair without help (may use support object) Continence: controls urination/bowel movements completely by self Feeding: feeds self without help Total Score: 0 Information obtained from: patient Using telephone: independent Traveling: independent Shopping: independent Preparing meals: independent Housework: independent Taking medicine: independent Managing money: independent PHQ-9 Over the last 2 weeks, how often have you been bothered by any of the following problems? 1. Little interest or pleasure in doing things: not at all 2. Feeling down, depressed, or hopeless: not at all 3. Trouble falling or staying asleep, or sleeping too much: several days 4. Feeling tired or having little energy: not at all 5. Poor appetite or overeating: not at all 6. Feeling bad about yourself - or that you are a failure or have let yourself or your family down: not at all 7. Trouble concentrating on things, such as reading the newspaper or watching television: not at all 8. Moving or speaking so slowly that other people could have noticed. Or the opposite - being so fidgety or restless that you have been moving around a lot more than usual: not at all 9. Thoughts that you would be better off or of hurting yourself in some way: not at all Total score: 1 Depression Screening Interpretation: Negative Depression Screening Done: Yes [id number] - PHQ-9 Billing: Yes Source: Developed by Drs. Henrique Vaughn, Marcie Hoyos, Altaf Swanson and colleagues, with an educational jennifer from [employer]. Physical Exam Vital Signs: Last Vital Signs Pulse 62 10/14/23 11:06 BP 164/68 H 10/14/23 11:06 Pulse Ox 96 10/14/23 11:06 Oxygen Delivery Method Room Air 10/14/23 11:06 BMI result Body Mass Index 28.5 HEENT Other: hearing screening whisper test- failed on right side Eyes Other: vision screening- 20 20 OS OD OU Other: urinary incontinence? No Neuro Other: balance Romberg- somewhat abnormal tandem walk test- able walk-in turned test- able rise from sit to stand- within 2 seconds Immunizations pneumoc 20-yuko conj-dip cr(PF) 0.5 mL IM syringe Performing Provider: Zander Macedo PA-C Performing Location: [facility] Administered by: ORTEGA Hicks on 10/14/23 11:58 Dose Route Admin Location Dispensed Lot Number Expiration Date [facility] Section Chief 0.5 mL IM Left Deltoid 0.5 mL [id number] 07/19/24 [employer] Beauty VIS Given Date VIS Provided VIS Publication Date 10/14/23 Single Vaccine 21 Eligibility Eligibility Date Funding Source Not [facility] Eligible 10/14/23 Private Assessment & Plan Assessment & Plan (1) Encounter for annual wellness visit (AWV) in Medicare patient: Code(s): Z00.00 - Encounter for general adult medical examination without abnormal findings Plan: as per HPI (2) SNHL (sensorineural hearing loss): Code(s): H90.5 - Unspecified sensorineural hearing loss Qualifiers: Contralateral hearing status: unspecified Laterality: right Qualified Code(s): H90.5 - Unspecified sensorineural hearing loss Plan: need hearing exam Was unable to get [facility] to cover insurance. Will refer to ENT specialty Orders: Orders Microalbumin, Random (w Creat) 6 Months I10 - Essential (primary) hypertension Comprehensive [place]. Panel Fast 6 Months R73.09 - Other abnormal glucose Pneumococcal 20 Immunization Today Z23 - Encounter for immunization Prostate Specific Antigen Scr 6 Months N40.1 - Benign prostatic hyperplasia with lower urinary tract symptoms, R35.1 - Nocturia, Z12.5 - Encounter for screening for malignant neoplasm of prostate Lipid Panel 6 Months E78.2 - Mixed hyperlipidemia Hemoglobin A1c 6 Months R73.09 - Other abnormal glucose Complete Blood Count no Diff 6 Months I42.9 - Cardiomyopathy, unspecified Referrals Ear/Nose/Throat Referral H90.5 - Unspecified sensorineural hearing loss Medications: Changed From aspirin 81 mg PO DAILY I42.9 - Cardiomyopathy, unspecified To aspirin 81 mg PO DAILY 90 tabs 1RF 90 days I42.9 - Cardiomyopathy, unspecified From atenolol 100 mg PO BEDTIME 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, first degree To atenolol 100 mg PO BEDTIME 90 tabs 1RF 90 days 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, first degree From loratadine 5 mg PO DAILY PRN Allergic Symptoms To loratadine 5 mg PO DAILY 90 tabs 1RF Allergic Symptoms 90 days Refilled atorvastatin 10 mg PO DAILY 90 tabs 1RF 90 days E78.2 - Mixed hyperlipidemia colchicine 0.3 mg (1/2 x 0.6 mg) PO DAILY PRN 7 tabs 0RF gout flare up 14 days M10.9 - Gout, unspecified nifedipine ER 30 mg PO DAILY 90 tabs 1RF I10 - Essential (primary) hypertension Quality Reporting (2019) Depression/Bipolar (159/160/161/177) PHQ-9: Total score: 1 Coding Level of Care Code Medicare First (G0438) Diagnoses Encounter for annual wellness visit (AWV) in Medicare patient Z00.00 Sensorineural hearing loss (SNHL) of right ear, unspecified hearing status on contralateral side H90.5 Contralateral hearing status: unspecified Laterality: right CPT Codes Advance Care Planning - Time spent: 1-15 minutes, not on file ([id number]) Advance Care Planning Advance Care Planning discussion: Exists, not on file Date of discussion: 10/14/23 Forms completed: MOLST Time spent: 1-15 minutes, not on file Actual minutes spent: 4
[2023-10-14 11:27] VITALS: BMI 28.5
== END 2023-10-14 12:01 | disposition home or self-care (01) ==
PROVIDERS: PCP Physician Assistant; Visit Provider Physician Assistant
DX: Z00.00 Encounter for general adult medical examination without abnormal findings (principal); H90.5 Unspecified sensorineural hearing loss; Z23 Encounter for immunization
CPT/HCPCS: 1124F; 90471; 90677; G0438

== ENCOUNTER 2023-10-29 15:07 | Outpatient (AMB) | payer OTHER, SELFPAY ==
[2023-10-29 15:08] VITALS: BP 130/54; PULSE 86; BMI 28.7
--- NOTE | 2023-10-29 15:08 | A.OFFVIS_ITS ---
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 However, unclear reasons. He denies any history of coronary disease, myocardial infarction or cardiomyopathy or anything else. He has had some lower extremity discomfort and not clear if he has any vascular disease. Few months back, he was admitted to the hospital presyncope and thought to be vasovagal. However, he states he is feeling fine now and does not have any recurrent concerns. No other issues like angina or shortness of breath. On medications for hypertension and cholesterol. COUNTS INCLUDE 234 BEDS AT THE [facility] Medical History (Updated 10/29/23 @ 15:30 by Alfred Oneal MD) History of fractured rib Gout flare Surgical History (Updated 10/29/23 @ 15:14 by Beth Briceño CMA) Hernia Family History (Updated 10/29/23 @ 15:16 by Beth Briceño CMA) Mother Heart attack HTN (hypertension) Father HTN (hypertension) Heart attack Sister DM2 (diabetes mellitus, type 2) Social History Housing: House Alcohol intake: current Alcohol intake frequency: holidays/special occasions o nly Alcohol type: beer Patient Tobacco Use Status: Former Tobacco user Tobacco use type: Cigarette e-Cigarette/Vaping Use: Never Used service: No 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 Cognitive needs: No Hearing needs: No Vision needs: No Review of Systems Const Denies chills, Denies daytime sleepiness, Denies fatigue, Denies fever(s), Denies poor appetite, Denies snoring, Denies stops breathing during sleep, Denies weakness, Denies weight gain and Denies weight loss Eyes Denies loss of vision ENT Denies dizziness and Denies hearing loss Card Denies chest pain, Denies irregular heart rhythm, Denies claudication, Denies leg edema, Denies lightheadedness, Denies palpitations, Denies dyspnea on exerti on and Denies orthopnea Resp Denies cough, Denies excessive phlegm production, Denies dyspnea on exertion, Denies snoring and Denies wheezing GI Denies abdominal pain, Denies hematochezia, Denies change in bowel habits, Denies nausea and Denies vomiting Denies dysuria and Denies urinary frequency Musc Denies arthralgias, Denies muscle weakness, Denies numbness and Denies other Skin/Breast Denies nail changes and Denies rash Neuro Denies Abnormal speech present, Denies dizziness, Denies loss of vision, Denies memory loss, Denies numbness and Denies weakness Psych Denies depression and Denies memory loss Endo Denies fatigue and Denies palpitations Dalton/Lymph Denies easy bruising Aller/Immun Denies wheezing Physical Exam Vital Signs: Last Vital Signs Pulse 86 10/29/23 15:08 BP 130/54 L 10/29/23 15:08 BMI result Body Mass Index 28.7 Const General: comfortable and no acute distress Orientation/consciousness: patient oriented x3 HEENT Other: Unremarkable Head: Yes normal to inspection Neck Neck: Yes normal visual inspection Chest Chest palpation & inspection: normal inspection of the chest Resp Auscultation: clear to auscultation bilaterally Cardio Palpation: normal PMI Heart sounds: S1 normal heart sound present, S2 normal heart sound present, no gallops, no murmurs and no rubs GI Palpation (GI): Soft to palpation Back/Spine/Pelvis Other: unremarkable Skin General skin exam: no rashes or lesions noted Neuro General: patient oriented x3 Speech: No Abnormal speech present Extrem General: Yes normal to inspection Psych Mental Status: mental status grossly normal Assessment & Plan Assessment & Plan (1) Diastolic dysfunction: Code(s): I51.89 - Other ill-defined heart diseases Category: Medical (2) Elevated brain natriuretic peptide (BNP) level: Code(s): R79.89 - Other specified abnormal findings of blood chemistry Category: Medical (3) Left atrial dilatation: Code(s): I51.7 - Cardiomegaly Category: Medical (4) HTN (hypertension): Code(s): I10 - Essential (primary) hypertension Category: Medical Qualifiers: Hypertension type: primary hypertension Qualified Code(s): I10 - Essential (primary) hypertension (5) HLD (hyperlipidemia): Code(s): E78.5 - Hyperlipidemia, unspecified Category: Medical Qualifiers: Hyperlipidemia type: mixed hyperlipidemia Qualified Code(s): E78.2 - Mixed hyperlipidemia Plan Cardiac studies reviewed. EKG with sinus bradycardia at 53/Min; TN prolongation to 224 millisecond; normal corrected QT. Echocardiogram with LVEF of 50-55%; mild diastolic dysfunction; moderately dilated left atrium; mild aortic regurgitation. Cardiac BNP increased to 877. There is another repeat but it is NT proBNP which is 666. Normal high sensitivity troponin. Overall, he does have vascular risk factors and probably some diastolic dysfunction causing elevated cardiac BNP and left atrial dilatation but no overt heart failure symptoms or signs. At this time, continue his usual regimen for blood pressure and cholesterol. We will request records from [place]. He does not remember the name of the doctor but has the details at home. Follow-up in 3 months or so. In the interim, call with concerns. Coding Level of Care Code Est Pt Level 4 (93943) Diagnoses Diastolic dysfunction I51.89 Elevated brain natriuretic peptide (BNP) level R79.89 Left atrial dilatation I51.7 Primary hypertension I10 Hypertension type: primary hypertension Mixed hyperlipidemia E78.2 Hyperlipidemia type: mixed hyperlipidemia
== END 2023-10-29 15:39 | disposition home or self-care (01) ==
PROVIDERS: PCP Physician Assistant; Visit Provider Internal Medicine
DX: I51.89 Other ill-defined heart diseases (principal); R79.89 Other specified abnormal findings of blood chemistry; I51.7 Cardiomegaly; I10 Essential (primary) hypertension; E78.2 Mixed hyperlipidemia
CPT/HCPCS: 99204; 99214

== ENCOUNTER → 2023-10-29 15:07 | Outpatient (BNVA) | payer OTHER, SELFPAY | PROVIDERS: PCP Physician Assistant; Visit Provider Internal Medicine | DX: I51.89 Other ill-defined heart diseases (principal); I51.7 Cardiomegaly; I10 Essential (primary) hypertension; E78.2 Mixed hyperlipidemia; R79.89 Other specified abnormal findings of blood chemistry | CPT/HCPCS: 99202; 99212 ==

== ENCOUNTER 2024-04-16 10:36 | Outpatient (AMB) | payer MEDICARE, MEDICAID, SELFPAY ==
[2024-04-16 10:41] VITALS: BP 144/72; PULSE 66; TEMP 36.1; O2SAT 95; BMI 28.5
--- NOTE | 2024-04-16 10:41 | MHC.PC.OV ---
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 Accompanied by: Self / Same As Patient Allergies No Known Allergies Allergy (Verified 04/16/24 10:51) Medication List - Last Reconciled 04/16/24 by Zander Macedo PA-C aspirin 81 mg PO DAILY 90 days atenolol 100 mg PO BEDTIME 90 days atorvastatin 10 mg PO DAILY 90 days colchicine 0.3 mg (1/2 x 0.6 mg) PO DAILY PRN 14 days loratadine 5 mg PO DAILY 90 days nifedipine ER 30 mg PO DAILY polymyxin B sulf-trimethoprim 10,000 unit- 1 mg/mL 1 drp ophthalmic (eye) QID PRN tamsulosin 0.4 mg PO BEDTIME 90 days Tobacco use date assessed: 04/16/24 Fall risk assessment: No Falls in past year Last assessed Fall Risk: 04/16/24 Dental Screening Dental Screen Date: 04/16/24 Did you have a dental visit in the last 12 months?: Yes Did you have a dental problem in the last 6 months where you did not have access to dental care?: No Was dental information given to patient?: Patient has dentist HPI follow up HPI Details Patient is a 79-year-old male here today for a follow-up visit Patient's past medical history significant for BPH, hypertension, hyperlipidemia. He seems to be somewhat of a poor historian. 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 He shares a family trend for similar sleep issues but opts against pharmaceutical interventions, fearing reliance on such measures. Hypertension: On atenolol, nifedipine . He denies any side effects. Patient's blood pressure acceptable today in office BPH: Patient continues on tamsulosin with good effect on his urinary flow. Has an upcoming appointment with [facility]. .. Cardiomyopathy: Has followed up with [facility]. Records have come in from his [place] die keeper. Seems to have had a low cardiac calcium score. Most recent pro Pro BNP slightly elevated at 666. [facility] Medical History (Updated 04/16/24 @ 10:56 by Zander Macedo PA-C) History of fractured rib Gout flare Surgical History Hernia Family History Mother Heart attack HTN (hypertension) Father HTN (hypertension) Heart attack Sister DM2 (diabetes mellitus, type 2) Social History Housing: House Alcohol intake: current Alcohol intake frequency: holidays/special occasions only Alcohol type: beer Patient Tobacco Use Status: Former Tobacco user Tobacco use type: Cigarette e-Cigarette/Vaping Use: Never Used service: No 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 1. Little interest or pleasure in doing things: not at all 2. Feeling down, depressed, or hopeless: not at all 3. Trouble falling or staying asleep, or sleeping too much: not at all 4. Feeling tired or having little energy: not at all 5. Poor appetite or overeating: not at all 6. Feeling bad about yourself - or that you are a failure or have let yourself or your family down: not at all 7. Trouble concentrating on things, such as reading the newspaper or watching television: not at all 8. Moving or speaking so slowly that other people could have noticed. Or the opposite - being so fidgety or restless that you have been moving around a lot more than usual: not at all 9. Thoughts that you would be better off or of hurting yourself in some way: not at all Total score: 0 Depression Screening Interpretation: Negative Depression Screening Done: Yes 99940 - PHQ-9 Billing: Yes Source: Developed by Drs. Henrique Vaughn, Marcie Hoyos, Altaf Swanson and colleagues, with an educational jennifer from [employer] Thrive Questionnaire Date Thrive assessed: 04/16/24 I am a: Patient What is your living situation today?: I have a steady place to live Within the past 12 months, did the food you bought not last and you didn't have the money to get more?: Never true Within the past 12 months, did you worry whether your food would run out before you got money to buy more?: Never true Do you have trouble paying for medicines?: No Do you have trouble getting transportation to medical appointments?: No Do you have trouble paying your heating and electricity bill?: No Do you have trouble taking care of your child, family member or friend?: No Do you have trouble with day-to-day activities such as bathing, preparing meals, shopping, managing finances, etc.?: No Are you currently unemployed and looking for a job?: No Are you interested in more education?: No Please select the resources that you would like help with: None Currently or been in a relationship where the following occur: No concerns reported THRIVE Score: 0 AUDIT C Alcohol Use Questionnaire (AUDIT-C) 1. How often do you have a drink containing alcohol?: Monthly or less 2. How many drinks containing alcohol do you have on a typical day when you are drinking?: 1 or 2 3. How often do you have six or more drinks on one occasion?: Never Total Score: 1 ALEXEI-7 AMB Questionnaire ALEXEI-7 Date ALEXEI - 7 assessed: 04/16/24 Feeling nervous, anxious, or on edge: 0 = Not at all Not being able to stop or control worryin = Not at all Worrying too much about different things: 0 = Not at all Trouble relaxin = Not at all Being so restless that it is hard to sit still: 0 = Not at all Becoming easily annoyed or irritable: 0 = Not at all Feeling afraid as if something awful might happen: 0 = Not at all Total ALEXEI-7 score (0-4 normal; 5-9 mild; 10-14 moderate; 15-21 severe): 0 Source: Developed by Drs. Henrique Vaughn, Marcie Hoyos, Altaf Swanson and colleagues, with an educational jennifer from [employer] ALEXEI-7 Assessment Billing ALEXEI-7 Assessment Tool: ALEXEI-7 Assessment 93501 Review of Systems Const Denies headache(s) Eyes Denies loss of vision ENT Denies vertigo, Denies dizziness, Denies headache(s) and Denies sore throat Card Denies chest pain, Denies leg edema and Denies lightheadedness Resp Denies cough, Denies hemoptysis and Denies wheezing GI Denies abdominal pain, Denies melena, Denies constipation, Denies diarrhea and Denies vomiting Denies dysuria, Denies urinary frequency and Denies urinary urgency Musc Denies arthralgias, Denies joint swelling, Denies numbness and Denies tingling Neuro Denies Abnormal speech present, Denies behavioral changes, Denies vertigo, Denies dizziness, Denies headache(s), Denies loss of vision, Denies memory loss, Denies numbness and Denies tingling Psych Denies anxiety, Denies behavioral changes, Denies depression, Denies memory loss and Denies panic attacks Dalton/Lymph Denies easy bleeding and Denies easy bruising Aller/Immun Denies wheezing Physical exam (Primary Care) Vital Signs: Last Vital Signs Temp 96.9 F 04/16/24 10:41 Pulse 66 04/16/24 10:41 BP 130/65 04/16/24 11:00 Pulse Ox 95 04/16/24 10:41 Oxygen Delivery Method Room Air 04/16/24 10:41 BMI result Body Mass Index 28.5 Tobacco/Smoking Status: Tobacco use Status Tobacco use date assessed 04/16/24 04/16/24 10:47 Patient Tobacco Use Status Former Tobacco user 04/16/24 10:47 Tobacco use type Cigarette 04/16/24 10:47 e-Cigarette/Vaping Use Never Used 04/16/24 10:47 PHQ-9: PHQ-9 Score PHQ-9: Total score 0 04/16/24 10:52 Depression Screening Interpretation: Negative Thrive Assessment: Date of Thrive Assessment Date Thrive assessed 04/16/24 04/16/24 10:47 Currently or been in a relationship where the following occur: No concerns reported Const General: healthy appearing, no acute distress, alert and awake Nutritional Appearance: well nourished Orientation/consciousness: oriented to person, oriented to place and oriented to time HENMT Ears: TM's normal bilaterally General nose exam: Normal nasal mucous membranes and turbinates present Eyes Conjunctivae: conjunctivae normal Sclerae: sclerae normal Pupils: Equal, round and reactive pupils present Neck Neck: Yes no lymphadenopathy and Yes no JVD Thyroid: Thyroid normal Carotids: no bruits Resp Effort & Inspection: normal respiratory effort and not tachypneic Auscultation: no crackles, no rales, no rhonchi and no wheezes Cardio Rate: regular rate Rhythm: regular rhythm Heart sounds: no murmurs and normal S1 and S2 GI Palpation (GI): Soft to palpation, nontender, no hepatomegaly and no splenomegaly Auscultation: normal bowel sounds Skin General skin exam: no rashes or lesions noted and dry skin Neuro General: oriented to person, oriented to place and oriented to time Cranial nerves: Yes Equal, round and reactive pupils present Speech: No Abnormal speech present Gait exam (Neuro): Normal gait present Motor exam (neuro): no tremor noted Extrem Right upper extremity: full ROM Left upper extremity: full ROM Right lower extremity: full ROM; no edema Left lower extremity: full ROM; no edema Psych Mental Status: mental status grossly normal Speech and movement: Normal speech and movement present Affect: normal affect Attitude: cooperative Thought process: Normal thought process present Coding Level of Care Code Est Pt Level 4 (76804) Diagnoses Mixed hyperlipidemia E78.2 Hyperlipidemia type: mixed hyperlipidemia Primary insomnia F51.01 Insomnia type: primary Cardiomyopathy, unspecified type I42.9 Cardiomyopathy type: unspecified Primary hypertension I10 Hypertension type: primary hypertension Additional Codes ALEXEI-7 Assessment Billing - ALEXEI-7 Assessment Tool: ALEXEI-7 Assessment 73076 ([id number]) PHQ-9 - 12153 - PHQ-9 Billing: Yes ([id number]) Assessment & Plan Assessment & Plan (1) HLD (hyperlipidemia): Code(s): E78.5 - Hyperlipidemia, unspecified Category: Medical Qualifiers: Hyperlipidemia type: mixed hyperlipidemia Qualified Code(s): E78.2 - Mixed hyperlipidemia Plan: Patient continues on atorvastatin 10 mg. Most recent lipid panel showing good control of his total cholesterol and LDL. LDL remains below 100 (2) Insomnia: Code(s): G47.00 - Insomnia, unspecified Category: Medical Qualifiers: Insomnia type: primary Qualified Code(s): F51.01 - Primary insomnia Plan: Patient reports difficulty with sleeping. Does not want to use any strong sleeping a prescription medication. He is willing to try melatonin before sleep. (3) Cardiomyopathy: Code(s): I42.9 - Cardiomyopathy, unspecified Category: Medical Qualifiers: Cardiomyopathy type: unspecified Qualified Code(s): I42.9 - Cardiomyopathy, unspecified Plan: Has followed up with [facility]. Pro BNP elevated at 666. Does not have any particular symptoms of heart failure. Will continue to manage blood pressure and cholesterol. (4) HTN (hypertension): Code(s): I10 - Essential (primary) hypertension Category: Medical Qualifiers: Hypertension type: primary hypertension Qualified Code(s): I10 - Essential (primary) hypertension Plan: Patient's blood pressure acceptable today in office. Will continue current dose of antihypertensive medication with goal blood pressure to remain below 140/90 Orders: Orders Microalbumin, Random (w Creat) Today I10 - Essential (primary) hypertension Lipid Panel Today E78.2 - Mixed hyperlipidemia Comprehensive [place]. Panel Fast Today I10 - Essential (primary) hypertension Complete Blood Count no Diff Today I10 - Essential (primary) hypertension Prostate Specific Antigen Scr Today I10 - Essential (primary) hypertension, Z12.5 - Encounter for screening for malignant neoplasm of prostate Medications: New melatonin 3 mg PO BEDTIME PRN 30 caps 1RF sleep 30 days F51.01 - Primary insomnia Patient Instructions: Goal: Blood pressure to remain below 140/90 Barriers: Adherence to physical activity and healthy eating habits
[2024-04-16 11:00] VITALS: BP 130/65
--- OUTSIDE RECORDS SUMMARY | 2024-04-16 12:33 | XMS_ITS | Data Portability ---
Author Organization MD - [facility], Allergy Address [address] [address] Care Team Providers Care Med Surg Nurse Name Role Phone BRIGIDO WEISS Primary Care Provider [phone] BRIGIDO WEISS Referring Provider [phone] Assessment Encounter Date Assessment Date Assessment LastModified by Organization Details LastModified Time 01/21/2024 01/21/2024 78 year old male presents for evaluation of his hearing. Audiometric testing today demonstrated bilateral normal hearing through 2kHz sloping to a severe sensorineural hearing loss with excellent speech discrimination. He had type A tympanograms bilaterally. We discussed that his hearing is still well preserved at 2Hz and he is not yet a candidate for amplification. Recommend follow up audiogram in 1-2 years or sooner with any changes in his hearing. Audiometric testing reviewed by Dr. Downs. [email or web address] Not available 01/21/2024 12:16:54 Plan of Treatment Reminders Order Date Submit Date Provider Last Modified By Organization Details Last Modified Time Details Appointments None record ed. Lab None record ed. Referral None record ed. Procedures None record ed. Surgeries None record ed. Imaging None record ed. Medication Orders None record ed. Patient TargetsNo targets recorded. Patient InstructionsNo instructions recorded. Reason for Referral None Reported. Results Created Date Observation Date Name Description Value Unit Range Abnormal Flag Note LastModifiedBy Organization Detail LastModifiedTime 01/21/20 24 audio gram No observ ation record ed. BARCODE Not Available 2023 13:49:00 Result Notes None recorded. Problems Name Problem SNOMED Code Status Onset Date Resolution Date Notes Provider Name and Address Organization Details Recorded Time Sensorineural hearing loss of bilateral ears [id number] Active 2023 ANJALI JACINTO [address], [address], [facility] 10:53:01 Problem Notes None recorded. Procedures Surgical History Date Name Laterality Status Provider Name and Address Organization Details Recorded Time 01/21/2024 Comp Audio with Tymps (24431 & 13872) completed FAYE SAMAYOA, [facility] 100 [facility], [place], [address], [facility] 01/21/2024 10:52:56 Imaging Results Imaging Date Name Status LastModified by Organiz ation Details LastModified Time 01/21/2024 audiogram completed BARCODE Information no t available 01/21/2024 13:49:00 Procedure Notes None recorded. Medical Equipment None Reported. Allergies No known drug allergies Medications Name Sig Start Date Stop Date Status Note LastModified by Organization Details LastModified Time nifedipine ER 30 mg tablet,exte nded release 24 hr TAKE 1 TABLET BY MOUTH EVERY DAY active Not Available Not Available No t Available atorvastati n 10 mg tablet TAKE 1 TABLET BY MOUTH EVERY DAY FOR 90 DAYS active Not Available Not Available No t Available ibuprofen 800 mg tablet TAKE 1 TABLET BY MOUTH EVERY 8 HOURS NEEDED FOR PAIN 01/20 completed Not Available Not Available Not Available atenolol 100 mg tablet TAKE 1 TABLET BY MOUTH EVERY DAY AT BEDTIME FOR 90 DAYS active Not Available Not Available No t Available aspirin 81 mg tablet,shari yed release TAKE 1 TABLET BY MOUTH EVERY DAY FOR 90 DAYS active Not Available Not Available No t Available amoxicillin 875 mg tablet TAKE 1 TABLET BY MOUTH TWICE A DAY FOR 7 DAYS 01/20 completed Not Available Not Available Not Available tamsulosin 0.4 mg capsule TAKE 1 CAPSULE BY MOUTH EVERY DAY active Not Available Not Available No t Available polymyxin B sulfate 10,000 unit-trimet hoprim 1 mg/mL eye drops PLEASE SEE ATTACHED FOR DETAILED DIRECTION S 01/20 completed Not Available Not Available Not Available hydrochloro thiazide 12.5 mg capsule TAKE 1 CAPSULE BY MOUTH DAILY FOR 90 DAYS 01/20 completed Not Available Not Available Not Available methylpredn isolone 4 mg tablets in a dose pack TAKE 6 TABLETS ON DAY 1 DIRECTED ON PACKAGE AND DECREASE BY 1 TAB EACH DAY FOR A TOTAL OF 6 DAYS 01/20 completed Not Available Not Available Not Available colchicine 0.6 mg tablet Take 1 tablet every day by oral route. active Not Available Not Available No t Available amoxicillin 875 mg-potassiu m clavulanate 125 mg tablet TAKE 1 TABLET BY MOUTH EVERY 12 HOURS FOR 10 DAYS 01/20 completed Not Available Not Available Not Available potassium chloride ER 20 mEq tablet,exte nded release TAKE 1 TABLET (20 MEQ) BY MOUTH 2 TIMES A DAY FOR 90 DAYS 01/20 completed Not Available Not Available Not Available Vitals Date Recorded Body height Body mass index (BMI) Body weight Provider Name and Address Organization Details Last Updated DateTime 01/21/2024 167.64 cm 28.7 kg/m2 95534.44 g Arlene Lemon [place] - [facility] 01/21/2024 11:09:45 Social History None recorded. Functional Status None recorded. Mental Status None recorded. Family History Nothing Reported. Medical History Condition Response Hypertension Y Past Encounters Encounter ID Performer Location Encounter Start Date Encounter Closed Date Diagnosis/Indication Diagnosis SNOMED-CT Code Diagnosis ICD10 Code Diagnosis Note [id number] NIHARIKA DOWNS MD [facility] [address] [address] 01/21/2024 10:27:17 01/21/2024 11:19:34 Sensorineural hearing loss of bilateral ears [id number] H90.3 Right Ear:Normal hearing through 2K Hz sloping to a severe SNHL with excellent speech discrimina tion.Type A tympanogra m.Left Ear:Normal hearing through 2K Hz sloping to a severe SNHL with excellent speech discrimina tion.Type A tympanogra m. Health Concerns Section Related Observation LastModified by Organization Detai ls LastModified Time None Recorded Concern Status LastModified by Organization Details LastModified Time None Recorded Advance Directives Directive None Recorded Payers Encounter Date Sequence Insurance Name Policy Number Policy Baires Covered Member ID Baires Member ID Guarantor Name 01/21/2024 1 [employer] (MEDICARE REPLACEMENT HMO) Max Keller [id number] Max Keller Notes Date Note Type Note Provider Name and Address Organization Details Recorded Time 01/21/2024 text/html 78 year old male presents for evaluation of his hearing. He has some trouble hearing people especially if they are speaking to him from a distance. He notices that he turns the TV up loudly to hear. He feels that his left ear is his good ear. He denies tinnitus. No history of ear infections or ear surgeries. His sister did start to lose her hearing in her 70s. NIHARIKA DOWNS MD [address] [place] [address], [id number], [facility] - [facility] 01/22/2024 09:40:22
== END 2024-04-16 11:04 | disposition home or self-care (01) ==
PROVIDERS: PCP Physician Assistant; Visit Provider Physician Assistant
DX: E78.2 Mixed hyperlipidemia (principal); F51.01 Primary insomnia; I42.9 Cardiomyopathy, unspecified; I10 Essential (primary) hypertension

== ENCOUNTER → 2024-04-16 10:36 | Outpatient (BNVA) | payer MEDICARE, MEDICAID, SELFPAY | PROVIDERS: PCP Physician Assistant; Visit Provider Physician Assistant | DX: E78.2 Mixed hyperlipidemia (principal); F51.01 Primary insomnia; I42.9 Cardiomyopathy, unspecified; I10 Essential (primary) hypertension | CPT/HCPCS: 96127; 99212 ==

== ENCOUNTER 2024-05-28 08:54 | Outpatient (REF) | payer MEDICARE, MEDICAID, SELFPAY ==
--- OUTSIDE RECORDS SUMMARY | 2024-05-28 16:22 | XMS_ITS | Patient Health Record ---
Author Organization [facility] Address [address] [place] [phone] Care Team Providers Care Java Security Architect Name Role Phone [facility] Primary Care Provider ALLERGIES No Known Allergies REASON FOR REFERRAL No Information MEDICATIONS Medication SIG (Take, Route, Frequency, Duration) Notes Start Date End Date Status hydroCHLOROthiazide 12.5 MG 1 capsule in the morning Orally Once a day for 30 days 09/27/2020 Active Atenolol 100 MG 1 tablet Orally Once a day for 30 days 08/17/2020 Active Potassium Chloride Farhana ER 2 0 MEQ 1 tablet with food Orally Twice a day for 30 day(s) Active Acetaminophen 500 MG 1 capsule as needed Orally every 6 hrs for 30 days 08/11/2012 Active Aspirin 81 MG 1 tablet Orally Once a day for 30 days 02/24/2013 Active Colcrys 0.6 MG 1 tablet Orally Once a day for 30 days 01/21/2018 Active Atorvastatin Calcium 10 MG 1 tablet Oral ly Once a day for 30 days Active IMMUNIZATIONS Vaccine Route Administration Date Status Comme nts Influenza (whole) IM Intramuscular 12/13/2015 Administered SOCIAL HISTORY Tobacco Use: Social History Observation Description Date Details (start date - stop date) Never Smoker NA - NA Sex Assigned At : Social History Observation Description Sex Assigned At Unknown Tobacco Use/Smoking Question Answer Notes Are you a nonsmoker Additional Findings: Tobacco Non-User Current no n-smoker Alcohol Screen Question Answer Notes Did you have a drink containing alcohol in the p ast year? No Points 0 Interpretation Negative Sexual History Question Answer Notes Had sex in the past 12 months (vaginal, oral, or anal)? No Have you ever had a Sexually transmitted disease ? No PROBLEMS Problem Type ICD Code Onset Dates Problem Status W/U Status Risk SNOMED Code Notes Problem Overweight (278.02) Active confirmed Overweight (891137975) Problem Essential hypertension, benign (401.1) Active confirmed Benign essent ial hypertension (8931540) Problem Sciatica (724.3) Active confirmed Sciat ica (19968343) Problem Insomnia, unspecified (780.52) Active confirmed Insomnia (676350890) Problem Throat pain (784.1) Active confirmed Throat pain (469716022) Problem Neck sprain and strain (847.0) Active confirmed Neck sprain (970988454) Problem Unspecified pre-operative examination (V72.84) Active confirmed Pre-operative evaluation (363341385) Problem Nondependent alcohol abuse, 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) Active confirmed Nondependent alcohol abuse (272755625) Problem Nondependent tobacco use disorder (305.1) Active confirmed Tobacco use r (019208693) Problem Counseling on other sexually transmitted diseases (V65.45) Active confirmed Counseling for sexually transmitted disease (870055531) Problem Mixed hyperlipidemia (E78.2) Active confirmed Mixed hyperlipidemia (523325808) Problem Disorder of bilirubin metabolism, 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 Disorder of bilirubin metabolism (57433105) Problem Hypokalemia (E87.6) Active confirmed Hypokalemia (59593979) Problem Essential (primary) hypertension (I10) Active confirmed Essential hypertension (10555546) Problem Dorsalgia, unspecified (M54.9) Active confirmed Backache (446785591) Problem Unspecified hydronephrosis (N13.30) Active confirmed Hydronephrosis (81170190) Problem Palpitations (R00.2) Active confirmed Palpitations (51920299) Problem Edema, unspecified (R60.9) Active confirmed Edema (45111909) Problem Impaired fasting glucose (R73.01) Active confirmed Impaired fa sting glucose (841498507) Problem Abnormal results of kidney function studies (R94.4) Active confirmed Abnormal result s of kidney function studies (856761785) Problem Encounter for general adult medical examination without abnormal findings (Z00.00) Active confirmed Adult heal th examination (627727272) Problem Encounter for other preprocedural examination (Z01.818) Active confirmed Pre-procedure evaluation check (948653698) Problem Body mass index (BMI) 28.0-28.9, adult (Z68.28) Active confirmed Body mass ind ex 25-29 - overweight (170287723) Problem Body mass index (BMI) 29.0-29.9, adult (Z68.29) Active confirmed BMI 25-29 - overweight (517675618) Problem Body mass index (BMI) 30.0-30.9, adult (Z68.30) Active confirmed Body mass ind ex 30+ - obesity (866632497) PLAN OF TREATMENT Pending Test Test Name Order Date MRI : Lumbosacral Spines 10/08/2017 Ultrasound : Breast, left 03/29/2014 Ultrasound : Kidneys, bilateral 06/20/19 14 Ultrasound : Abdomen 06/11/2016 Ultrasound : Breasts, bilateral 09/17/19 19 Ultrasound : Breasts, bilateral 01/22/20 18 Echocardiogram 02/24/2013 Colonoscopy 11/03/2012 Chest X-ray PA and lateral 02/06/2016 Chest X-ray PA and lateral 07/17/2016 Electrocardiogram (EKG) 01/09/2016 Urinalysis, Complete 05/31/2015 Urinalysis, Complete 03/29/2014 Urinalysis, Complete 11/15/2014 Urinalysis, Complete 10/11/2015 Urinalysis, Complete 11/09/2011 Urinalysis, Complete 08/11/2012 Urinalysis, Complete 11/03/2012 Urinalysis, Complete 12/26/2012 Urinalysis, Complete 02/24/2013 Urinalysis, Complete 11/17/2013 TSH 11/17/2013 TSH 02/24/2013 TSH 11/03/2012 TSH 12/26/2012 TSH 11/09/2011 TSH 08/11/2012 TSH 03/14/2021 TSH 10/11/2015 TSH 09/30/2019 TSH 03/27/2016 TSH 11/20/2016 TSH 03/01/2017 TSH 06/04/2017 TSH 10/08/2017 TSH 07/08/2018 TSH 10/28/2018 TSH 03/25/2018 TSH 02/03/2019 TSH 03/29/2014 TSH 05/31/2015 TSH 11/15/2014 TSH 02/08/2020 TSH 08/17/2020 TSH 11/15/2020 CBC With Differential/Platelet 6 CBC With Differential/Platelet 9 CBC With Differential/Platelet 5 CBC With Differential/Platelet 2 CBC With Differential/Platelet 3 CBC With Differential/Platelet 3 CBC With Differential/Platelet 4 CBC With Differential/Platelet 4 CBC With Differential/Platelet 4 Lipid Panel 12/26/2012 Lipid Panel 10/11/2015 Lipid Panel 03/29/2014 Comp. Metabolic Panel (14) 11/15/2014 Comp. Metabolic Panel (14) 02/08/2020 Comp. Metabolic Panel (14) 05/31/2015 Comp. Metabolic Panel (14) 11/15/2020 Comp. Metabolic Panel (14) 08/17/2020 Comp. Metabolic Panel (14) 10/11/2015 Comp. Metabolic Panel (14) 03/14/2021 Comp. Metabolic Panel (14) 08/11/2012 Comp. Metabolic Panel (14) 11/09/2011 Comp. Metabolic Panel (14) 11/17/2013 Comp. Metabolic Panel (14) 03/29/2014 Comp. Metabolic Panel (14) 02/24/2013 Comp. Metabolic Panel (14) 12/26/2012 Comp. Metabolic Panel (14) 11/03/2012 Comp. Metabolic Panel (14) 02/03/2019 Comp. Metabolic Panel (14) 09/30/2019 Comp. Metabolic Panel (14) 07/08/2018 Comp. Metabolic Panel (14) 10/28/2018 Comp. Metabolic Panel (14) 10/08/2017 Comp. Metabolic Panel (14) 03/25/2018 Comp. Metabolic Panel (14) 06/04/2017 Comp. Metabolic Panel (14) 03/01/2017 Comp. Metabolic Panel (14) 11/20/2016 Comp. Metabolic Panel (14) 03/27/2016 Lipid Profile 03/27/2016 Lipid Profile 11/20/2016 Lipid Profile 03/01/2017 Lipid Profile 06/04/2017 Lipid Profile 03/25/2018 Lipid Profile 10/08/2017 Lipid Profile 10/28/2018 Lipid Profile 07/08/2018 Lipid Profile 02/03/2019 Lipid Profile 11/03/2012 Lipid Profile 02/24/2013 Lipid Profile 11/17/2013 Lipid Profile 11/09/2011 Lipid Profile 08/11/2012 Lipid Profile 03/14/2021 Lipid Profile 09/30/2019 Lipid Profile 08/17/2020 Lipid Profile 11/15/2020 Lipid Profile 05/31/2015 Lipid Profile 02/08/2020 Lipid Profile 11/15/2014 Carotid Duplex 12/16/2018 X ray : LS Spine 07/26/2015 X ray : LS Spine 08/11/2012 X ray : LS Spine 06/19/2013 PSA, total 11/17/2013 PSA, total 02/24/2013 PSA, total 12/26/2012 PSA, total 11/03/2012 PSA, total 08/11/2012 PSA, total 11/09/2011 PSA, total 03/14/2021 PSA, total 10/28/2018 PSA, total 02/03/2019 PSA, total 09/30/2019 PSA, total 06/04/2017 PSA, total 03/25/2018 PSA, total 07/08/2018 PSA, total 11/15/2014 PSA, total 05/31/2015 PSA, total 02/08/2020 PSA, total 08/17/2020 INFLUENZA 12/13/2015 MRI : Cervical without Contrast 09/16/19 13 Ultrasound : Abd/Aorta Comp 12/16/2018 Ultrasound : Kidneys, bilateral with dop pler 11/20/2016 X ray : Toe 09/24/2014 HSV 2 IGG HERPESELECT AB 06/23/2015 HSV 2 IGG HERPESELECT AB 05/31/2015 BASIC METAB PANEL 06/21/2014 BASIC METAB PANEL 12/28/2015 BASIC METAB PANEL 01/11/2016 BASIC METAB PANEL 03/04/2014 BASIC METAB PANEL 06/29/2014 BASIC METAB PANEL 05/05/2018 BASIC METAB PANEL 12/13/2015 BASIC METAB PANEL 12/10/2017 BASIC METAB PANEL 06/19/2013 BASIC METAB PANEL 01/11/2014 BASIC METAB PANEL 12/19/2017 BASIC METAB PANEL 05/09/2018 COMP METAB PANEL 11/07/2017 COMP METAB PANEL 08/14/2018 COMP METAB PANEL 04/07/2014 COMP METAB PANEL 01/04/2014 COMP METAB PANEL 12/09/2014 COMP METAB PANEL 03/23/2015 COMP METAB PANEL 06/23/2015 COMP METAB PANEL 01/20/2016 COMP METAB PANEL 11/23/2015 COMP METAB PANEL 05/29/2016 COMP METAB PANEL 12/13/2016 COMP METAB PANEL 07/25/2017 COMP METAB PANEL 05/26/2018 COMP METAB PANEL 08/18/2012 COMP METAB PANEL 11/24/2012 COMP METAB PANEL 03/05/2013 HEPATITIS B SURFACE AB,QL 05/31/2015 HEPATITIS B SURFACE AB,QL 06/23/2015 MAGNESIUM 05/26/2018 MAGNESIUM 02/08/2020 MAGNESIUM 09/30/2019 MAGNESIUM 05/09/2018 PROTHROMBIN TIME W/ INR 05/27/2018 PSA,TOTAL 08/14/2018 PSA,TOTAL 05/14/2018 PSA,TOTAL 04/23/2018 PSA,TOTAL 07/25/2017 PSA,TOTAL 11/24/2012 PSA,TOTAL 03/05/2013 PSA,TOTAL 08/18/2012 PSA,TOTAL 06/23/2015 PSA,TOTAL 01/20/2016 PSA,TOTAL 12/09/2014 PSA,TOTAL 01/04/2014 TSH 04/07/2014 TSH 01/04/2014 TSH 12/09/2014 TSH 03/23/2015 TSH 06/23/2015 TSH 05/29/2016 TSH 07/25/2017 TSH 12/13/2016 TSH 11/23/2015 TSH 01/20/2016 TSH 08/18/2012 TSH 11/24/2012 TSH 03/05/2013 TSH 11/07/2017 TSH 04/23/2018 TSH 05/14/2018 TSH 08/14/2018 URINALYSIS,COMPLETE 08/14/2018 URINALYSIS,COMPLETE 05/14/2018 URINALYSIS,COMPLETE 11/07/2017 URINALYSIS,COMPLETE 04/23/2018 URINALYSIS,COMPLETE 07/25/2017 URINALYSIS,COMPLETE 03/05/2013 URINALYSIS,COMPLETE 11/24/2012 URINALYSIS,COMPLETE 08/18/2012 URINALYSIS,COMPLETE 11/15/2020 URINALYSIS,COMPLETE 02/08/2020 URINALYSIS,COMPLETE 08/17/2020 URINALYSIS,COMPLETE 05/29/2016 URINALYSIS,COMPLETE 12/13/2016 URINALYSIS,COMPLETE 11/23/2015 URINALYSIS,COMPLETE 06/23/2015 URINALYSIS,COMPLETE 12/09/2014 URINALYSIS,COMPLETE 01/04/2014 URINALYSIS,COMPLETE 04/07/2014 URINALYSIS,COMPLETE 09/30/2019 URINALYSIS,COMPLETE 03/14/2021 URINALYSIS,COMPLETE 06/19/2013 URINALYSIS,COMPLETE 10/08/2017 URINALYSIS,COMPLETE 06/04/2017 URINALYSIS,COMPLETE 03/01/2017 URINALYSIS,COMPLETE 11/20/2016 URINALYSIS,COMPLETE 03/27/2016 URINALYSIS,COMPLETE 03/25/2018 URINALYSIS,COMPLETE 10/28/2018 URINALYSIS,COMPLETE 07/08/2018 URINALYSIS,COMPLETE 02/03/2019 CBC (INCLUDES DIFF/PLT) 10/11/2015 CBC (INCLUDES DIFF/PLT) 12/26/2012 CBC (INCLUDES DIFF/PLT) 04/07/2014 CBC (INCLUDES DIFF/PLT) 01/04/2014 CBC (INCLUDES DIFF/PLT) 12/09/2014 CBC (INCLUDES DIFF/PLT) 06/23/2015 CBC (INCLUDES DIFF/PLT) 03/23/2015 CBC (INCLUDES DIFF/PLT) 05/29/2016 CBC (INCLUDES DIFF/PLT) 12/13/2016 CBC (INCLUDES DIFF/PLT) 07/25/2017 CBC (INCLUDES DIFF/PLT) 01/20/2016 CBC (INCLUDES DIFF/PLT) 11/23/2015 CBC (INCLUDES DIFF/PLT) 08/18/2012 CBC (INCLUDES DIFF/PLT) 11/24/2012 CBC (INCLUDES DIFF/PLT) 03/05/2013 CBC (INCLUDES DIFF/PLT) 03/29/2014 CBC (INCLUDES DIFF/PLT) 11/07/2017 CBC (INCLUDES DIFF/PLT) 04/23/2018 CBC (INCLUDES DIFF/PLT) 05/14/2018 CBC (INCLUDES DIFF/PLT) 05/27/2018 CBC (INCLUDES DIFF/PLT) 08/14/2018 HEMOGLOBIN A1C 12/19/2017 HEMOGLOBIN A1C 06/21/2014 HEMOGLOBIN A1C 03/29/2014 HEMOGLOBIN A1C 11/23/2015 HEMOGLOBIN A1C 04/07/2014 HEMOGLOBIN A1C 06/29/2014 HEMOGLOBIN A1C 12/26/2012 HEMOGLOBIN A1C 09/30/2019 HEMOGLOBIN A1C 10/11/2015 HEMOGLOBIN A1C 12/10/2017 HEMOGLOBIN A1C 03/17/2019 MICROSCOPIC EXAM,URINE 03/23/2015 MICROALBUMIN,RAND U(W/CR) 04/07/2014 MICROALBUMIN,RAND U(W/CR) 11/23/2015 MICROALBUMIN,RAND U(W/CR) 03/29/2014 MICROALBUMIN,RAND U(W/CR) 10/11/2015 MICROALBUMIN,RAND U(W/CR) 12/26/2012 HEPATITIS C AB 05/31/2015 HEPATITIS C AB 06/23/2015 URINALYSIS,REFLEX 01/20/2016 URINALYSIS,REFLEX 03/23/2015 LIPID PANEL 04/07/2014 LIPID PANEL 11/23/2015 LIPID PANEL CLARIFICATION 01/20/2016 LIPID PANEL CLARIFICATION 07/25/2017 LIPID PANEL CLARIFICATION 12/13/2016 LIPID PANEL CLARIFICATION 05/29/2016 LIPID PANEL CLARIFICATION 01/04/2014 LIPID PANEL CLARIFICATION 06/23/2015 LIPID PANEL CLARIFICATION 12/09/2014 LIPID PANEL CLARIFICATION 03/23/2015 LIPID PANEL CLARIFICATION 03/05/2013 LIPID PANEL CLARIFICATION 11/24/2012 LIPID PANEL CLARIFICATION 08/18/2012 LIPID PANEL CLARIFICATION 11/07/2017 LIPID PANEL CLARIFICATION 04/23/2018 LIPID PANEL CLARIFICATION 08/14/2018 LIPID PANEL CLARIFICATION 05/14/2018 COMP METABOLIC PANEL CLARIFICATION 05/14 COMP METABOLIC PANEL CLARIFICATION 04/23 COMPLETE BLOOD COUNT 11/15/2020 COMPLETE BLOOD COUNT 08/17/2020 COMPLETE BLOOD COUNT 02/08/2020 COMPLETE BLOOD COUNT 03/14/2021 COMPLETE BLOOD COUNT 03/27/2016 COMPLETE BLOOD COUNT 11/20/2016 COMPLETE BLOOD COUNT 03/01/2017 COMPLETE BLOOD COUNT 03/25/2018 COMPLETE BLOOD COUNT 06/04/2017 COMPLETE BLOOD COUNT 10/08/2017 COMPLETE BLOOD COUNT 09/30/2019 COMPLETE BLOOD COUNT 02/03/2019 COMPLETE BLOOD COUNT 10/28/2018 COMPLETE BLOOD COUNT 07/08/2018 HSV 1 IGG HERPESELECT AB 05/31/2015 HSV 1 IGG HERPESELECT AB 06/23/2015 BILIRUBIN PANEL 06/11/2016 HIV 1/2 AG/AB,4TH GEN RFL 06/23/2015 HIV 1/2 AG/AB,4TH GEN RFL 05/31/2015 NEG HIV 4TH GEN 06/23/2015 NEG HCV RNA,QN,REAL TIME PCR 06/23/2015 PT W/INR AND PTT 05/26/2018 SARS COV 2(COVID19)IGG,IA 08/17/2020 SARS COV 2(COVID19)IGG,IA 09/30/20192018 NOVEL CORONAVIRUS (COVID-19) RNA, Q L RT-PCR 08/17/2020 Insurance Providers Payer Name Payer Address Payer Phone Subscriber Number Group Number Insured Name Patient Relationship to Insured Coverage Start Date Coverage End Date [employer] [address] [place] [address] [id number] Max Cortes Self - patient is the insured MEDICAL (GENERAL) HISTORY Medical History History ICD Code HTN microhematuria HERPES 2 in blood gout colonoscopy 2020 Repeat 5 yrs Surgical History Surgery Date(Month/Year) Rt inguinal hernia 2009 Hospitalization History Reason Date(Month/Year) cardiac cath 06/18/13 cardiac cath WNL 10/2015
[2024-05-28 16:42] LABS: Urine Cytology See Pathology rpt
== END 2024-05-28 08:55 | disposition home or self-care (01) ==
LOC: HO.LNP 08:54
PROVIDERS: PCP Physician Assistant; Visit Provider Nurse Practitioner Family
DX: N40.1 Benign prostatic hyperplasia with lower urinary tract symptoms (principal); R35.1 Nocturia; R80.9 Proteinuria, unspecified
CPT/HCPCS: 51798; 81003; 88112; 99212

== ENCOUNTER 2024-05-28 08:54 | Outpatient (AMB) | payer MEDICARE, SELFPAY ==
--- NOTE | 2024-05-28 08:59 | A.OFFVIS_ITS ---
Intake Visit Reasons: follow up Intake Note: Patient presents today for follow up on: nocturia, bph Urology Medications: tamsulosin Blood Thinner: aspirin PVR: 64ml's [employer] Required: No Accompanied by: Self / Same As Patient Allergies No Known Allergies Allergy (Verified 05/28/24 09:26) Medication List - Last Reconciled 05/28/24 by NOA Booker- aspirin 81 mg PO DAILY 90 days atenolol 100 mg PO BEDTIME 90 days atorvastatin 10 mg PO DAILY 90 days colchicine 0.3 mg (1/2 x 0.6 mg) PO DAILY PRN 14 days loratadine 5 mg PO DAILY 90 days melatonin 3 mg PO BEDTIME PRN 30 days nifedipine ER 30 mg PO DAILY polymyxin B sulf-trimethoprim 10,000 unit- 1 mg/mL 1 drp ophthalmic (eye) QID PRN 7 days tamsulosin 0.4 mg PO BEDTIME 90 days HPI Comments Details: Max is a very pleasant 79-year-old male patient of Dr. Macedo. He has a past medical history of BPH, Gout, hyperlipidemia, and hypertension. He presents to the office today for follow-up of his lower urinary tract symptoms. In discussion with the patient today reports to be doing and feeling well. He reports compliance with Flomax as prescribed. He does report episodes of nocturia however he does endorse to be drinking fluids prior to bed. In office urinalysis results reviewed with the patient today 2+ proteinuria. We discussed referral to Nephrology for further assessment evaluation. PVR 64 mL. In review of patient's chart it appears PSA: 12/10 1.2, 06/11 1.1 He reports he will be following up with his PCP within the next 2 weeks and is due for more blood work. We discussed importance of follow-up as planned as patient has not been seen in over a year. He currently denies any bothersome urinary issues or concerns at this time. He denies urinary urgency, urinary frequency, incontinence, hematuria, dysuria, foul smelling urine, changes to urinary stream, flank pain, fever, and or chills. During last office visit recommendations were made for retroperitoneal ultrasound however this was never obtained. We discussed importance in doing so. HANNAH offered however deferred. He otherwise offers no issues or concerns at this time. Plan We addressed the patient's nocturia by advising fluid restriction in the evening and contemplated adjustments in tamsulosin use, recommending continued o bservation given current patient preference. The proteinuria requires nephrological evaluation, and I arranged for a referral for further assessment and diagnostics.Prostate-specific antigen testing is scheduled soon to maintain annual monitoring protocol. Prescription refills will be sent to [facility] as requested. I explained the relevance of monitoring blood glucose periodically due to elevated HbA1c. Patient was informed and verbally consented to the use of an ambient scribe for clinic note documentation during this visit. Discussion Notes I discussed with the patient the implications of nocturia and the importance of fluid management to mitigate nighttime symptoms. We reviewed the current tamsulosin regimen, and I emphasized its timing and potential adjustments if symptoms persist or worsen. The proteinuria discovery led to a recommendation for nephrology consultation, which the patient accepted, understanding the need for comprehensive renal evaluation. We reviewed the significance of annual prostate-specific antigen testing, which he agreed to follow up promptly. Prescription refills will be coordinated, ensuring continuity of care. The patient engaged well with the plan, understanding the necessity of each step, including adjusting his fluid habits and pursuing follow-ups. He was informed of the cd technician's location, agreeing to the referral process without reservations. 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 Cognitive needs: No Hearing needs: No Vision needs: No Review of Systems Const Reports no additional complaints Eyes Reports no additional complaints ENT Reports no additional complaints Card Reports as per HPI Resp Reports no additional complaints GI Reports no additional complaints Reports as per HPI Musc Reports no additional complaints Neuro Reports no additional complaints Psych Reports no additional complaints Endo Reports no additional complaints Dalton/Lymph Reports no additional complaints Aller/Immun Reports no additional complaints Physical Exam Const General: cooperative, healthy appearing, comfortable, no acute distress, well developed, alert and awake Orientation/consciousness: patient oriented x3 Limitations: no limitations HEENT Head: Yes normal to inspection, Yes normocephalic and Yes atraumatic Ears: hearing grossly normal bilaterally Eyes General: appearance normal, both eyes and all related structures Neck Neck: Yes normal visual inspection and Yes trachea midline Chest Chest palpation & inspection: normal inspection of the chest Resp Effort & Inspection: normal respiratory effort and able to speak in complete sentences Cardio Rate: regular rate GI Inspection: Yes normal to inspection General: Yes no CVA tenderness Back/Spine/Pelvis Back: no CVA tenderness Skin General skin exam: no rashes or lesions noted Neuro General: patient oriented x3 Extrem General: Yes normal to inspection Psych Appearance: grossly normal and well kempt Mental Status: mental status grossly normal Speech and movement: Normal speech and movement present and Clear speech present Affect: normal affect Attitude: cooperative Thought process: Normal thought process present Thought content: Normal thought content present Insight: Fair insight present (Psych) Judgement: Fair judgement present (Psych) Office Procedures Post Void Residual Post Residual Void Post Void Residual (PVR): 64 [id number]-[id number] Void Residual by ultrasound Results AMB Urinalysis, Automated UA Leukoctes 0 Lilly/uL Last Edit by [employer] Audiolauren Krishnamurthy on 05/28/24 09:23 UA Nitrite Last Edit by Pixstalauren Krishnamurthy on 05/28/24 09:23 UA Urobilinogen 0.2 mg/dL Last Edit by Pixstalauren Krishnamurthy on 05/28/24 09:23 UA Protein 100 mg/dL Last Edit by [employer] Audiolauren Krishnamurthy on 05/28/24 09:23 UA pH 6.0 Last Edit by [employer] Audiolauren Krishnamurthy on 05/28/24 09:23 UA Blood 25 Kodi/uL Last Edit by Felix Krishnamurthy on 05/28/24 09:23 UA Specific [place] 1.025 Last Edit by Felix Novakjose on 05/28/24 09:23 UA Ketone Last Edit by Felix Novakjose on 05/28/24 09:23 UA Bilirubin 0 mg/dL Last Edit by Felix Novakjose on 05/28/24 09:23 UA Glucose 0 mg/dL Last Edit by Ruysonal Scarletjose on 05/28/24 09:23 Results Reviewed Results Reviewed: Laboratory Last Values Urine pH (Auto) 6.0 05/28/24 09:20 Specific [place] (Auto) 1.025 05/28/24 09:20 Urine Protein (Auto) 100 mg/dL 05/28/24 09:20 Glucose (UA)(Auto) 0 mg/dL 05/28/24 09:20 Urine Blood (Auto) 25 Kodi/uL 05/28/24 09:20 Urine Bilirubin (Auto) 0 mg/dL 05/28/24 09:20 Urine Urobilinogen (Auto) 0.2 mg/dL 05/28/24 09:20 Leukocyte Esterase (Auto) 0 Lilly/uL 05/28/24 09:20 Assessment & Plan Assessment & Plan (1) BPH (benign prostatic hyperplasia): Code(s): N40.0 - Benign prostatic hyperplasia without lower urinary tract symptoms Category: Medical Qualifiers: Lower urinary tract symptom detail: nocturia Lower urinary tract symptom presence: symptoms present Qualified Code(s): N40.1 - Benign prostatic hyperplasia with lower urinary tract symptoms; R35.1 - Nocturia (2) Proteinuria: Code(s): R80.9 - Proteinuria, unspecified Category: Medical Plan In office urinalysis results reviewed with the patient today; as noted above; will send for urine cytology. We discussed referral to Nephrology with 2+ proteinuria. PVR 64 mL. Continue Flomax. We discussed importance of following up as planned. Will obtain retroperitoneal ultrasound for further assessment evaluation. Will obtain PSA for further assessment evaluation. He currently denies any bothersome urinary issues or concerns. He reports to be happy with current voiding parameters. We discussed importance of limiting fluids 2-3 hours prior to bed to decrease episodes of nocturia. Follow-up in 3 months with imaging, PSA, and PVR; or sooner with any issues, concerns, and or questions. Orders: Orders AMB Urinalysis Automated Today Z13.9 - Encounter for screening, unspecified US retroperitoneal comp Today N40.1 - Benign prostatic hyperplasia with lower urinary tract symptoms, R35.1 - Nocturia, R80.9 - Proteinuria, unspecified AMB Post Void Residual by ultrasound Today N40.1 - Benign prostatic hyperplasia with lower urinary tract symptoms, R35.1 - Nocturia Prostate Specific Antigen Scr 04/16/24 I10 - Essential (primary) hypertension, Z12.5 - Encounter for screening for malignant neoplasm of prostate Referrals Nephrology Referral R80.9 - Proteinuria, unspecified Medications: Refilled tamsulosin 0.4 mg PO BEDTIME 90 days 90 caps 3RF N40.1 - Benign prostatic hyperplasia with lower urinary tract symptoms, R35.1 - Nocturia Patient Instructions: The patient had an opportunity to ask questions regarding the treatment plan. All questions were answered. Physical exam, labs, and imaging were discussed and reviewed in detail. As well as risks, benefits, and discussion of treatment choices. No major barriers to understanding were identified. The patient expressed understanding and agreement with the above treatment plan. The patient was made aware they should contact our office by phone for worsening of their current condition, the appearance of new symptoms, or with any questions or concerns. Compliance is encouraged with any medications and follow up testing that is ordered. It is a privilege to be allowed the opportunity to participate in? your urological care.? Again, if you have any questions or concerns If you have any questions or concerns please do not hesitate to contact me. The office is [phone]. This note is constructed using voice recognition software. While every effort has been made to ensure accuracy senior industrial engineer errors may have been included. Yours sincerely, KEMAR Booker Coding Level of Care Code Est Pt Level 3 (40581) Complex EM visit Add On G2211 Diagnoses Benign prostatic hyperplasia with nocturia N40.1; R35.1 Lower urinary tract symptom detail: nocturia Lower urinary tract symptom presence: symptoms present Proteinuria R80.9 CPT Codes Post Residual Void - PVR CPT Code: 24733-Huqr Void Residual by ultrasound ([id number])
--- OUTSIDE RECORDS SUMMARY | 2024-05-28 09:27 | XMS_ITS | Data Portability ---
Author Organization MD - [facility], Allergy Address [address] [address] Care Team Providers Care Hot Head Machine Operator Name Role Phone BRIGIDO WEISS Primary Care Provider BRIGIDO WEISS Referring Provider Assessment Encounter Date Assessment Date Assessment LastModified [...] Time Sensorineural hearing loss of bilateral ears [id number] Active 2023 ANJALI JACINTO [address], [phone], [facility] 10:53:01 Problem Notes None recorded. Procedures Surgical History Date Name Laterality Status Provider Name and Address Organization Details Recorded Time 01/21/2024 Comp Audio with Tymps (17909 & 72032) completed FAYE SAMAYOA, [facility] [address] [facility] [address], [place], [phone], [facility] 01/21/2024 10:52:56 Imaging Results Imaging Date [...] Updated DateTime 01/21/2024 167.64 cm 28.7 kg/m2 77107.44 g Arlene Lemon MA - [facility] 01/21/2024 11:09:45 Social History None recorded. Functional Status None recorded. Mental Status None recorded. Family History Nothing Reported. Medical History Condition Response Hypertension Y Past Encounters Encounter ID Performer Location Encounter Start Date Encounter Closed Date Diagnosis/Indication Diagnosis SNOMED-CT Code Diagnosis ICD10 Code Diagnosis Note [id number] NIHARIKA DOWNS MD [facility] [address] [address] 01/21/2024 10:27:17 01/21/2024 11:19:34 Sensorineural hearing loss of bilateral ears [id number] H90.3 Right Ear:Normal hearing through 2K Hz [...] Baires Member ID Guarantor Name 01/21/2024 1 amiando (MEDICARE REPLACEMENT HMO) Max Keller [id number] Max Keller Notes Date Note Type Note [...] hearing in her 70s. NIHARIKA DOWNS MD [address] [place] [address], [phone], [facility] - [facility] 01/22/2024 09:40:22
== END 2024-05-28 09:39 | disposition home or self-care (01) ==
PROVIDERS: PCP Physician Assistant; Visit Provider Nurse Practitioner Family
DX: N40.1 Benign prostatic hyperplasia with lower urinary tract symptoms (principal); R35.1 Nocturia; R80.9 Proteinuria, unspecified; Z13.9 Encounter for screening, unspecified
CPT/HCPCS: 99213; G2211

== ENCOUNTER 2024-06-08 11:00 | Outpatient (REF) | payer MEDICARE, SELFPAY ==
--- OUTSIDE RECORDS SUMMARY | 2024-06-08 11:05 | XMS_ITS | Data Portability ---
Author Organization ID - [facility], Allergy Address [address] [address] Care Team Providers Care Sales Expert Name Role Phone BRIGIDO WEISS Primary Care [...] Time Sensorineural hearing loss of bilateral ears [id number] Active 2023 ANJALI JACINTO [address], [phone], [facility] 10:53:01 Problem Notes None recorded. Procedures Surgical History Date Name Laterality Status Provider Name and Address Organization Details Recorded Time 01/21/2024 Comp Audio with Tymps (53127 & 32564) completed FAYE SAMAYOA, [facility], [place], [phone], [facility] 01/21/2024 10:52:56 Imaging Results Imaging Date [...] Updated DateTime 01/21/2024 167.64 cm 28.7 kg/m2 26913.44 g Arlene Lemon MA - [facility] 01/21/2024 11:09:45 Social History None recorded. Functional Status None recorded. Mental Status None recorded. Family History Nothing Reported. Medical History Condition Response Hypertension Y Past Encounters Encounter ID Performer Location Encounter Start Date Encounter Closed Date Diagnosis/Indication Diagnosis SNOMED-CT Code Diagnosis ICD10 Code Diagnosis Note [id number] NIHARIKA DOWNS MD [facility] [address] [phone] 01/21/2024 10:27:17 01/21/2024 11:19:34 Sensorineural hearing loss of bilateral ears 063732490 H90.3 Right Ear:Normal hearing through 2K Hz [...] Baires Member ID Guarantor Name 01/21/2024 1 [employer] (MEDICARE REPLACEMENT HMO) Max Keller [id number] Max Keller Notes Date Note Type Note [...] hearing in her 70s. NIHARIKA DOWNS MD [address] [place] [address], [phone], [facility] - [facility] 01/22/2024 09:40:22
--- OUTSIDE RECORDS SUMMARY | 2024-06-08 11:05 | XMS_ITS | Patient Health Record ---
Author Organization [facility] Address [address] [place] [address] [phone] Care Team Providers Care Office Runner Name Role Phone [facility] Primary Care Provider [phone] ALLERGIES No Known Allergies REASON FOR REFERRAL [...] Notes Problem Overweight (278.02) Active confirmed Overweight (903661528) Problem Essential hypertension, benign (401.1) Active confirmed Benign essent ial hypertension (0710985) Problem Sciatica (724.3) Active confirmed Sciat ica (89980252) Problem Insomnia, unspecified (780.52) Active confirmed Insomnia (540936381) Problem Throat pain (784.1) Active confirmed Throat pain (786175867) Problem Neck sprain and strain (847.0) Active confirmed Neck sprain (524683607) Problem Unspecified pre-operative examination (V72.84) Active confirmed Pre-operative evaluation (528952186) Problem Nondependent alcohol abuse, 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) Active confirmed Nondependent alcohol abuse (358468438) Problem Nondependent tobacco use disorder (305.1) Active confirmed Tobacco use r (812582715) Problem Counseling on other sexually transmitted diseases (V65.45) Active confirmed Counseling for sexually transmitted disease (716370384) Problem Mixed hyperlipidemia (E78.2) Active confirmed Mixed hyperlipidemia (866069429) Problem Disorder of bilirubin metabolism, 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 Disorder of bilirubin metabolism (68584275) Problem Hypokalemia (E87.6) Active confirmed Hypokalemia (79033497) Problem Essential (primary) hypertension (I10) Active confirmed Essential hypertension (79364513) Problem Dorsalgia, unspecified (M54.9) Active confirmed Backache (086730664) Problem Unspecified hydronephrosis (N13.30) Active confirmed Hydronephrosis (91273388) Problem Palpitations (R00.2) Active confirmed Palpitations (30061385) Problem Edema, unspecified (R60.9) Active confirmed Edema (81107853) Problem Impaired fasting glucose (R73.01) Active confirmed Impaired fa sting glucose (844384776) Problem Abnormal results of kidney function studies (R94.4) Active confirmed Abnormal result s of kidney function studies (888713035) Problem Encounter for general adult medical examination without abnormal findings (Z00.00) Active confirmed Adult heal th examination (549720596) Problem Encounter for other preprocedural examination (Z01.818) Active confirmed Pre-procedure evaluation check (064340268) Problem Body mass index (BMI) 28.0-28.9, adult (Z68.28) Active confirmed Body mass ind ex 25-29 - overweight (480692562) Problem Body mass index (BMI) 29.0-29.9, adult (Z68.29) Active confirmed BMI 25-29 - overweight (629819264) Problem Body mass index (BMI) 30.0-30.9, adult (Z68.30) Active confirmed Body mass ind ex 30+ - obesity (431873605) PLAN OF TREATMENT Pending Test Test Name Order Date MRI : Lumbosacral Spines 10/08/2017 Ultrasound : Breast, left 03/29/2014 Ultrasound : Kidneys, bilateral 06/20/19 14 Ultrasound : Abdomen 06/11/2016 Ultrasound : Breasts, bilateral 01/22/20 18 Ultrasound : Breasts, bilateral 09/17/19 19 Echocardiogram 02/24/2013 Colonoscopy 11/03/2012 Chest X-ray PA and lateral 07/17/2016 Chest X-ray PA and lateral 02/06/2016 Electrocardiogram (EKG) 01/09/2016 Urinalysis, Complete 05/31/2015 Urinalysis, Complete 03/29/2014 Urinalysis, Complete 11/15/2014 Urinalysis, Complete 10/11/2015 Urinalysis, Complete 11/03/2012 Urinalysis, Complete 12/26/2012 Urinalysis, Complete 02/24/2013 Urinalysis, Complete 11/17/2013 Urinalysis, Complete 11/09/2011 Urinalysis, Complete 08/11/2012 TSH 11/09/2011 TSH 08/11/2012 TSH 03/14/2021 TSH 02/03/2019 TSH 09/30/2019 TSH 11/17/2013 TSH 02/24/2013 TSH 12/26/2012 TSH 11/03/2012 TSH 10/11/2015 TSH 03/27/2016 TSH 11/20/2016 TSH 03/01/2017 TSH 06/04/2017 TSH 07/08/2018 TSH 10/28/2018 TSH 03/25/2018 TSH 10/08/2017 TSH 03/29/2014 TSH 05/31/2015 TSH 11/15/2014 TSH 02/08/2020 TSH 08/17/2020 TSH 11/15/2020 CBC With Differential/Platelet 6 CBC With Differential/Platelet 9 CBC With Differential/Platelet 5 CBC With Differential/Platelet 3 CBC With Differential/Platelet 4 CBC With Differential/Platelet 4 CBC With Differential/Platelet 4 CBC With Differential/Platelet 2 CBC With Differential/Platelet 3 Lipid Panel 12/26/2012 Lipid Panel 10/11/2015 Lipid Panel 03/29/2014 Comp. Metabolic Panel (14) 03/29/2014 Comp. Metabolic Panel (14) 11/15/2014 Comp. Metabolic Panel (14) 05/31/2015 Comp. Metabolic Panel (14) 11/15/2020 Comp. Metabolic Panel (14) 02/08/2020 Comp. Metabolic Panel (14) 08/17/2020 Comp. Metabolic Panel (14) 10/11/2015 Comp. Metabolic Panel (14) 03/27/2016 Comp. Metabolic Panel (14) 06/04/2017 Comp. Metabolic Panel (14) 03/01/2017 Comp. Metabolic Panel (14) 11/20/2016 Comp. Metabolic Panel (14) 10/08/2017 Comp. Metabolic Panel (14) 03/25/2018 Comp. Metabolic Panel (14) 10/28/2018 Comp. Metabolic Panel (14) 07/08/2018 Comp. Metabolic Panel (14) 02/24/2013 Comp. Metabolic Panel (14) 11/17/2013 Comp. Metabolic Panel (14) 12/26/2012 Comp. Metabolic Panel (14) 11/03/2012 Comp. Metabolic Panel (14) 08/11/2012 Comp. Metabolic Panel (14) 11/09/2011 Comp. Metabolic Panel (14) 03/14/2021 Comp. Metabolic Panel (14) 09/30/2019 Comp. Metabolic Panel (14) 02/03/2019 Lipid Profile 02/03/2019 Lipid Profile 09/30/2019 Lipid Profile 03/14/2021 Lipid Profile 11/09/2011 Lipid Profile 08/11/2012 Lipid Profile 11/03/2012 Lipid Profile 11/17/2013 Lipid Profile 02/24/2013 Lipid Profile 07/08/2018 Lipid Profile 10/28/2018 Lipid Profile 03/25/2018 Lipid Profile 10/08/2017 Lipid Profile 11/20/2016 Lipid Profile 03/01/2017 Lipid Profile 06/04/2017 Lipid Profile 03/27/2016 Lipid Profile 08/17/2020 Lipid Profile 02/08/2020 Lipid Profile 11/15/2020 Lipid Profile 05/31/2015 Lipid Profile 11/15/2014 Carotid Duplex 12/16/2018 X ray : LS Spine 07/26/2015 X ray : LS Spine 06/19/2013 X ray : LS Spine 08/11/2012 PSA, total 08/11/2012 PSA, total 11/09/2011 PSA, total 03/14/2021 PSA, total 02/03/2019 PSA, total 09/30/2019 PSA, total 11/17/2013 PSA, total 11/03/2012 PSA, total 12/26/2012 PSA, total 02/24/2013 PSA, total 07/08/2018 PSA, total 10/28/2018 PSA, total 06/04/2017 PSA, total 03/25/2018 PSA, total 11/15/2014 PSA, total 05/31/2015 PSA, [...] BASIC METAB PANEL 01/11/2016 BASIC METAB PANEL 06/29/2014 BASIC METAB PANEL 03/04/2014 BASIC METAB PANEL 12/13/2015 BASIC METAB PANEL 05/05/2018 BASIC METAB PANEL 12/10/2017 BASIC METAB PANEL 06/19/2013 BASIC METAB PANEL 01/11/2014 BASIC METAB PANEL 12/19/2017 BASIC METAB PANEL 05/09/2018 COMP METAB PANEL 08/14/2018 COMP METAB PANEL 11/07/2017 COMP METAB PANEL 04/07/2014 COMP METAB PANEL [...] INR 05/27/2018 PSA,TOTAL 08/14/2018 PSA,TOTAL 05/14/2018 PSA,TOTAL 07/25/2017 PSA,TOTAL 04/23/2018 PSA,TOTAL 11/24/2012 PSA,TOTAL 08/18/2012 PSA,TOTAL 06/23/2015 PSA,TOTAL 01/20/2016 PSA,TOTAL 12/09/2014 PSA,TOTAL 03/05/2013 PSA,TOTAL 01/04/2014 TSH 01/04/2014 TSH 04/07/2014 TSH 12/09/2014 TSH 06/23/2015 TSH 03/23/2015 TSH 01/20/2016 TSH 05/29/2016 TSH 12/13/2016 TSH 11/23/2015 TSH 08/18/2012 TSH 11/24/2012 TSH 03/05/2013 TSH 04/23/2018 TSH 07/25/2017 TSH 11/07/2017 TSH 05/14/2018 TSH 08/14/2018 URINALYSIS,COMPLETE 08/14/2018 URINALYSIS,COMPLETE 05/14/2018 URINALYSIS,COMPLETE 07/25/2017 URINALYSIS,COMPLETE 04/23/2018 URINALYSIS,COMPLETE 11/07/2017 URINALYSIS,COMPLETE 11/24/2012 URINALYSIS,COMPLETE 08/18/2012 URINALYSIS,COMPLETE 02/08/2020 URINALYSIS,COMPLETE 11/15/2020 URINALYSIS,COMPLETE 08/17/2020 URINALYSIS,COMPLETE 06/23/2015 URINALYSIS,COMPLETE 05/29/2016 URINALYSIS,COMPLETE 12/13/2016 URINALYSIS,COMPLETE 11/23/2015 URINALYSIS,COMPLETE 12/09/2014 URINALYSIS,COMPLETE 04/07/2014 URINALYSIS,COMPLETE 01/04/2014 URINALYSIS,COMPLETE 03/05/2013 URINALYSIS,COMPLETE 09/30/2019 URINALYSIS,COMPLETE 02/03/2019 URINALYSIS,COMPLETE 03/14/2021 URINALYSIS,COMPLETE 06/19/2013 URINALYSIS,COMPLETE 10/08/2017 URINALYSIS,COMPLETE 03/25/2018 URINALYSIS,COMPLETE 07/08/2018 URINALYSIS,COMPLETE 10/28/2018 URINALYSIS,COMPLETE 03/27/2016 URINALYSIS,COMPLETE 11/20/2016 URINALYSIS,COMPLETE 06/04/2017 URINALYSIS,COMPLETE 03/01/2017 CBC (INCLUDES DIFF/PLT) 10/11/2015 CBC (INCLUDES DIFF/PLT) 12/26/2012 CBC (INCLUDES DIFF/PLT) 01/04/2014 CBC (INCLUDES DIFF/PLT) 04/07/2014 CBC (INCLUDES DIFF/PLT) 12/09/2014 CBC (INCLUDES DIFF/PLT) 03/23/2015 CBC (INCLUDES DIFF/PLT) 06/23/2015 CBC (INCLUDES DIFF/PLT) 01/20/2016 CBC (INCLUDES DIFF/PLT) 05/29/2016 CBC (INCLUDES DIFF/PLT) 12/13/2016 CBC (INCLUDES DIFF/PLT) 11/23/2015 CBC (INCLUDES DIFF/PLT) 08/18/2012 CBC (INCLUDES DIFF/PLT) 11/24/2012 CBC (INCLUDES DIFF/PLT) 03/05/2013 CBC (INCLUDES DIFF/PLT) 03/29/2014 CBC (INCLUDES DIFF/PLT) 04/23/2018 CBC (INCLUDES DIFF/PLT) 07/25/2017 CBC (INCLUDES DIFF/PLT) 11/07/2017 CBC (INCLUDES DIFF/PLT) 05/27/2018 CBC (INCLUDES DIFF/PLT) 05/14/2018 CBC (INCLUDES DIFF/PLT) 08/14/2018 HEMOGLOBIN A1C 12/19/2017 HEMOGLOBIN A1C 06/21/2014 HEMOGLOBIN A1C 03/29/2014 HEMOGLOBIN A1C 11/23/2015 HEMOGLOBIN A1C 06/29/2014 HEMOGLOBIN A1C 04/07/2014 HEMOGLOBIN A1C 12/26/2012 HEMOGLOBIN A1C 03/17/2019 HEMOGLOBIN A1C 09/30/2019 HEMOGLOBIN A1C 10/11/2015 HEMOGLOBIN A1C 12/10/2017 MICROSCOPIC EXAM,URINE 03/23/2015 MICROALBUMIN,RAND U(W/CR) 11/23/2015 MICROALBUMIN,RAND U(W/CR) 04/07/2014 MICROALBUMIN,RAND U(W/CR) 03/29/2014 MICROALBUMIN,RAND U(W/CR) 10/11/2015 MICROALBUMIN,RAND U(W/CR) 12/26/2012 HEPATITIS C AB 05/31/2015 HEPATITIS C AB 06/23/2015 URINALYSIS,REFLEX 01/20/2016 URINALYSIS,REFLEX 03/23/2015 LIPID PANEL 04/07/2014 LIPID PANEL 11/23/2015 LIPID PANEL CLARIFICATION 01/20/2016 LIPID PANEL CLARIFICATION 05/29/2016 LIPID PANEL CLARIFICATION 12/13/2016 LIPID PANEL CLARIFICATION 07/25/2017 LIPID PANEL CLARIFICATION 01/04/2014 LIPID PANEL CLARIFICATION 03/23/2015 LIPID PANEL CLARIFICATION 06/23/2015 LIPID PANEL CLARIFICATION 12/09/2014 LIPID PANEL CLARIFICATION 03/05/2013 LIPID PANEL CLARIFICATION 08/18/2012 LIPID PANEL CLARIFICATION 11/24/2012 LIPID PANEL CLARIFICATION 04/23/2018 LIPID PANEL CLARIFICATION 11/07/2017 LIPID PANEL CLARIFICATION 08/14/2018 LIPID PANEL CLARIFICATION 05/14/2018 COMP METABOLIC PANEL CLARIFICATION 05/14 COMP METABOLIC PANEL CLARIFICATION 04/23 COMPLETE BLOOD COUNT 11/15/2020 COMPLETE BLOOD COUNT 08/17/2020 COMPLETE BLOOD COUNT 02/08/2020 COMPLETE BLOOD COUNT 03/14/2021 COMPLETE BLOOD COUNT 09/30/2019 COMPLETE BLOOD COUNT 03/27/2016 COMPLETE BLOOD COUNT 06/04/2017 COMPLETE BLOOD COUNT 03/01/2017 COMPLETE BLOOD COUNT 11/20/2016 COMPLETE BLOOD COUNT 10/08/2017 COMPLETE BLOOD COUNT 03/25/2018 COMPLETE BLOOD COUNT 02/03/2019 COMPLETE BLOOD COUNT [...] Coverage End Date [employer] [address] [place] [address] [id number] Max Cortes Self - patient is the insured MEDICAL (GENERAL) HISTORY Medical History History ICD Code HTN microhematuria HERPES 2 in blood gout colonoscopy 2020 Repeat 5 yrs Surgical History Surgery Date(Month/Year) Rt inguinal hernia 2009 Hospitalization History Reason Date(Month/Year) cardiac cath 06/18/13 cardiac cath WNL 10/2015
[2024-06-08 11:53] LABS: Hematocrit 43.8 % (42.0-52.0); Hemoglobin 14.1 g/dl (14.0-18.0); Mean Corpuscular HGB Conc 32.2 g/dl (31.0-36.0); Mean Corpuscular Hemoglobin 28.8 pg (27.0-33.0); Mean Corpuscular Volume 89.4 fL (80.0-98.0); Mean Platelet Volume 10.2 fL (9.4-12.4); Platelet Count 290 X10*3/uL (160-400); Red Cell Distribution Width 15.1 % (11.0-16.0)
[2024-06-08 12:08] LABS: Estimated Average Glucose 114 mg/dL; Hemoglobin A1C 139.9408 umol/L; Hemoglobin A1c % 5.6 % (<6.0); Total Hemoglobin (HGBA1C) 3680.6919 umol/L
[2024-06-08 12:24] LABS: Alanine Aminotransferase 25 U/L (0-40); Albumin Level 3.7 g/dL (3.5-5.0); Alkaline Phosphatase 71 U/L (39-117); Anion Gap 13 (12-20); Aspartate Amino Transferase 23 U/L (5-37); Bilirubin Total 0.9 mg/dL (0.0-1.0); Blood Urea Nitrogen 15 mg/dL (9-16); Calcium 8.8 mg/dL (8.4-10.2); Carbon Dioxide 23 mmol/L (22-29); Chloride 110 mmol/L (96-108); Cholesterol 158 mg/dL (<200); Estimated Glomerular Filt Rate > 60; Glucose Fasting 106 mg/dL (60-99); HDL Cholesterol 42 mg/dL (>40); LDL Cholesterol Calculated 97 mg/dL (<100); Potassium 3.5 mmol/L (3.3-5.1); Sodium 142 mmol/L (135-145); Total Protein 6.9 g/dL (6.5-8.0); Triglycerides 95 mg/dL (<150)
[2024-06-08 12:38] LABS: Prostate Specific Antigen Scr 1.31 ng/mL (<0.05-4.0)
[2024-06-08 12:45] LABS: Creatinine Urine 127.47 mg/dL; Microalbum/Creatinine Ratio Ur 232.2 ug/mg cr (<30)
== END 2024-06-08 11:01 | disposition home or self-care (01) ==
LOC: HO.LAB 11:00
PROVIDERS: Absent Provider Nurse Practitioner Family; PCP Physician Assistant; Visit Provider Physician Assistant
DX: R73.09 Other abnormal glucose (principal); Z12.5 Encounter for screening for malignant neoplasm of prostate; N40.1 Benign prostatic hyperplasia with lower urinary tract symptoms; R35.1 Nocturia; E78.2 Mixed hyperlipidemia; I10 Essential (primary) hypertension
CPT/HCPCS: 36415; 80053; 80061; 82043; 82570; 83036; 84153; 85027

== ENCOUNTER 2024-06-09 10:32 | Outpatient (AMB) | payer MEDICARE, SELFPAY ==
--- NOTE | 2024-06-09 10:40 | HO.NEPHOV_ITS ---
Vital Signs 06/09/24 10:43 Height 5 ft 6 in Weight 175 lb 4 oz BMI 28.3 BP 144/80 H Blood Pressure Location Lt brachial Position Sitting Pulse 58 Pulse Source Pulse Oximeter Pulse Oximetry (%) 96 Oxygen Delivery Method Room Air Intake Visit Reasons: INP: Proteinuria Software Sales Executive Required: No Accompanied by: Self / Same As Patient Allergies No Known Allergies Allergy (Verified 06/09/24 10:42) HPI Comments Details: I had the privilege of seeing Mr Keller in consultation for proteinuria , hypertension and mild CKD. He is 79 years of age and is in good health. [place] He denies CAD, CVA, CHF, PAD, carotid disease but has hypertension for a long time. 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 According to him his BP is at goal. He is not very strict with low sodium diet but tries to eat healthy. He is not a diabetic. He denies taking excess NSAID's. He is not on ACEI or ARB. He had no edema , hematuria or any specific systemic complaint at the time of this office visit. 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 Cognitive needs: No Hearing needs: No Vision needs: No Review of Systems Const All systems reviewed & are unremarkable except as noted in HPI and below Physical Exam Vital Signs: Last Vital Signs Pulse 58 06/09/24 10:43 BP 144/80 H 06/09/24 10:43 Pulse Ox 96 06/09/24 10:43 Oxygen Delivery Method Room Air 06/09/24 10:43 BMI result Body Mass Index 28.3 Const General: comfortable and no acute distress Orientation/consciousness: patient oriented x3 HEENT Head: Yes normocephalic Mouth: Normal oral and palatal mucosa present Eyes EOM: EOMs intact bilaterally Neck Neck: Yes supple Resp Auscultation: clear to auscultation bilaterally Cardio Jugular venous distension: no JVD Rate: regular rate GI Palpation (GI): Soft to palpation Auscultation: normal bowel sounds General: Yes no CVA tenderness Back/Spine/Pelvis Back: no CVA tenderness Skin General skin exam: no rashes or lesions noted Neuro General: patient oriented x3 and moves all extremities Extrem General: Yes no pedal edema Results Reviewed Nephrology Results: Hgb 14.1 g/dl (14.0-18.0) 06/08/24 WBC 7.0 X10*3/uL (4.8-10.8) 06/08/24 Plt Count 290 X10*3/uL (160-400) 06/08/24 Sodium 142 mmol/L (135-145) 06/08/24 Potassium 3.5 mmol/L (3.3-5.1) 06/08/24 Chloride 110 mmol/L (96-108) H 06/08/24 Carbon Dioxide 23 mmol/L (22-29) 06/08/24 BUN 15 mg/dL (9-16) 06/08/24 Creatinine 1.03 mg/dL (0.5-1.4) 06/08/24 Calcium 8.8 mg/dL (8.4-10.2) 06/08/24 Urine Creatinine 127.47 mg/dL 06/08/24 Assessment & Plan Assessment & Plan (1) Proteinuria: Code(s): R80.9 - Proteinuria, unspecified Category: Medical Qualifiers: Proteinuria type: other Qualified Code(s): R80.8 - Other proteinuria (2) HTN (hypertension): Code(s): I10 - Essential (primary) hypertension Category: Medical Qualifiers: Hypertension type: primary hypertension Qualified Code(s): I10 - Essential (primary) hypertension Plan Mr Keller has mild CKD and proteinuria likely from his longstanding hypertension. He is not a diabetic. He has aortic root dilatation. He has no H/O HF. He is not on any ACEI/ARB. His BP needs to be kept at goal. I have ordered W/U and imaging studies. He will be a candidate for ACEI/ARB as well as SGLT2 i. Further manage ment is pending evolving data. Answered all questions & F/U given Orders: Orders Blood Urea Nitrogen 3 Weeks R80.9 - Proteinuria, unspecified Electrolytes 3 Weeks R80.9 - Proteinuria, unspecified Myeloperoxidase Antibody 3 Weeks R80.9 - Proteinuria, unspecified Anti Glomerular Basement Memb 3 Weeks R80.9 - Proteinuria, unspecified Complement C3 3 Weeks R80.9 - Proteinuria, unspecified Immunofixation Pnl, Serum 3 Weeks R80.9 - Proteinuria, unspecified Phospholipase A2 Receptor Pnl 3 Weeks R80.9 - Proteinuria, unspecified US renal BI 3 Weeks R80.9 - Proteinuria, unspecified Creatinine 3 Weeks R80.9 - Proteinuria, unspecified Anti DNA DS Antibody 3 Weeks R80.9 - Proteinuria, unspecified Proteinase 3 PR3 Antibodies 3 Weeks R80.9 - Proteinuria, unspecified Immunofixation, Random Urine 3 Weeks R80.9 - Proteinuria, unspecified Coding Level of Care Code New Pt Level 4 (16361) Diagnoses Other proteinuria R80.8 Proteinuria type: other Primary hypertension I10 Hypertension type: primary hypertension
[2024-06-09 10:43] VITALS: BP 144/80; PULSE 58; O2SAT 96; BMI 28.3
--- OUTSIDE RECORDS SUMMARY | 2024-06-09 12:18 | XMS_ITS | Patient Health Record ---
Author Organization [facility] Address [address] [place] [address] [phone] Care Team Providers Care National Secretary Name Role Phone [facility] Primary Care [...] Notes Problem Overweight (278.02) Active confirmed Overweight (977912373) Problem Essential hypertension, benign (401.1) Active confirmed Benign essent ial hypertension (8487325) Problem Sciatica (724.3) Active confirmed Sciat ica (83068373) Problem Insomnia, unspecified (780.52) Active confirmed Insomnia (857948275) Problem Throat pain (784.1) Active confirmed Throat pain (131373890) Problem Neck sprain and strain (847.0) Active confirmed Neck sprain (194681838) Problem Unspecified pre-operative examination (V72.84) Active confirmed Pre-operative evaluation (521837332) Problem Nondependent alcohol abuse, 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) Active confirmed Nondependent alcohol abuse (961216260) Problem Nondependent tobacco use disorder (305.1) Active confirmed Tobacco use r (593319357) Problem Counseling on other sexually transmitted diseases (V65.45) Active confirmed Counseling for sexually transmitted disease (655463243) Problem Mixed hyperlipidemia (E78.2) Active confirmed Mixed hyperlipidemia (639221887) Problem Disorder of bilirubin metabolism, 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 Disorder of bilirubin metabolism (98483140) Problem Hypokalemia (E87.6) Active confirmed Hypokalemia (39412731) Problem Essential (primary) hypertension (I10) Active confirmed Essential hypertension (71833031) Problem Dorsalgia, unspecified (M54.9) Active confirmed Backache (569812207) Problem Unspecified hydronephrosis (N13.30) Active confirmed Hydronephrosis (30631792) Problem Palpitations (R00.2) Active confirmed Palpitations (80198596) Problem Edema, unspecified (R60.9) Active confirmed Edema (48044206) Problem Impaired fasting glucose (R73.01) Active confirmed Impaired fa sting glucose (890903516) Problem Abnormal results of kidney function studies (R94.4) Active confirmed Abnormal result s of kidney function studies (912286723) Problem Encounter for general adult medical examination without abnormal findings (Z00.00) Active confirmed Adult heal th examination (631745984) Problem Encounter for other preprocedural examination (Z01.818) Active confirmed Pre-procedure evaluation check (721710367) Problem Body mass index (BMI) 28.0-28.9, adult (Z68.28) Active confirmed Body mass ind ex 25-29 - overweight (118993241) Problem Body mass index (BMI) 29.0-29.9, adult (Z68.29) Active confirmed BMI 25-29 - overweight (652869681) Problem Body mass index (BMI) 30.0-30.9, adult (Z68.30) Active confirmed Body mass ind ex 30+ - obesity (755444326) PLAN OF TREATMENT Pending Test Test Name [...] Coverage End Date [employer] [address] [place] [address] [id number] Max Cortes Self - patient is the insured MEDICAL (GENERAL) HISTORY Medical History History ICD Code HTN microhematuria HERPES 2 in blood gout colonoscopy 2020 Repeat 5 yrs Surgical History Surgery Date(Month/Year) Rt inguinal hernia 2009 Hospitalization History Reason Date(Month/Year) cardiac cath 06/18/13 cardiac cath WNL 10/2015
--- OUTSIDE RECORDS SUMMARY | 2024-06-09 12:18 | XMS_ITS | Data Portability ---
Author Organization [place] [facility], Allergy Address [address] [address] Care Team Providers Care Dispatch Coordinator Name Role Phone BRIGIDO WEISS Primary Care Provider [phone] BRIGIDO WEISS Referring Provider [phone] Assessment Encounter Date Assessment Date Assessment LastModified [...] Time Sensorineural hearing loss of bilateral ears 748054031 Active 2023 ANJALI JACINTO [address], [phone], [facility] 10:53:01 Problem Notes None recorded. Procedures Surgical History Date Name Laterality Status Provider Name and Address Organization Details Recorded Time 01/21/2024 Comp Audio with Tymps (21052 & 90501) completed FAYE SAMAYOA, [facility] 100 [facility], [place], [address], [facility] 01/21/2024 10:52:56 Imaging Results Imaging Date Name [...] Updated DateTime 01/21/2024 167.64 cm 28.7 kg/m2 97895.44 g Arlene Lemon MA - [facility] 01/21/2024 11:09:45 Social History None recorded. Functional Status None recorded. Mental Status None recorded. Family History Nothing Reported. Medical History Condition Response Hypertension Y Past Encounters Encounter ID Performer Location Encounter Start Date Encounter Closed Date Diagnosis/Indication Diagnosis SNOMED-CT Code Diagnosis ICD10 Code Diagnosis Note [id number] NIHARIKA DOWNS MD [facility] [address] [phone] 01/21/2024 10:27:17 01/21/2024 11:19:34 Sensorineural hearing loss of bilateral ears [id number] H90.3 Right Ear:Normal hearing through 2K Hz [...] Baires Member ID Guarantor Name 01/21/2024 1 [employer] (MEDICARE REPLACEMENT HMO) Max Keller [id number] Max Keller Notes Date Note Type Note [...] hearing in her 70s. NIHARIKA DOWNS MD [address] [place] [address], [phone], [facility] - [facility] 01/22/2024 09:40:22
== END 2024-06-09 11:40 | disposition home or self-care (01) ==
LOC: HO.HKAS 10:32
PROVIDERS: PCP Physician Assistant; Referring Provider Nurse Practitioner Family; Visit Provider Internal Medicine Nephrology
DX: R80.8 Other proteinuria (principal); I10 Essential (primary) hypertension
CPT/HCPCS: 99204

== ENCOUNTER → 2024-06-09 10:32 | Outpatient (BNVA) | payer MEDICARE, SELFPAY | PROVIDERS: PCP Physician Assistant; Referring Provider Nurse Practitioner Family; Visit Provider Internal Medicine Nephrology | DX: R80.8 Other proteinuria (principal); I10 Essential (primary) hypertension | CPT/HCPCS: 99202 ==

== ENCOUNTER 2024-06-23 14:41 | Outpatient (REF) | payer MEDICARE, SELFPAY ==
--- NOTE | ~2024-06-23 | US_ITS ---
EXAMINATION: US KIDNEY BILATERAL HISTORY: R80.9 - Proteinuria, unspecified TECHNIQUE: Real-time grayscale ultrasound imaging of the kidneys was performed and images were reviewed. COMPARISON: There are no prior studies for comparison. FINDINGS: Right kidney: The right kidney measures 13.1 x 6.5 x 5.9 cm. There is mild increased renal echotexture. There is a 2.6 x 2.0 x 2.7 cm cyst at the upper pole and a 1.3 x 1.3 x 1.2 cm cyst in the interpolar region. There is mild hydronephrosis. No calculi are identified. Left Kidney: The left kidney measures 11.5 x 5.1 x 6.8 cm. There is mild increased renal echotexture. Multiple cysts are noted at the lower pole including a 2.8 x 2.5 x 2.7 cm septated cyst and additional simple cyst measuring 1.9 x 1.6 x 1.9 cm and 2.7 x 2.0 x 2.0 cm. There is fullness of the renal pelvis. No calculi are identified. US/US renal BI IMPRESSION: 1. Multiple bilateral renal cysts as described. 2. Increased renal echotexture bilaterally, suggestive of chronic medical renal disease. 2. Mild right hydronephrosis. Mild fullness of the left renal pelvis. Additional imaging with CT may be helpful. Electronically signed by: Henrique Ramires MD 06/23/2024 03:08 PM EDT
--- OUTSIDE RECORDS SUMMARY | 2024-06-23 15:53 | XMS_ITS | Patient Health Record ---
Author Organization [facility] Address [address] [place] [phone] Care Team Providers Care Vice President Fixed Income Name Role Phone [facility] Primary Care Provider [phone] ALLERGIES No Known Allergies REASON FOR REFERRAL [...] Notes Problem Overweight (278.02) Active confirmed Overweight (841398518) Problem Essential hypertension, benign (401.1) Active confirmed Benign essent ial hypertension (0090699) Problem Sciatica (724.3) Active confirmed Sciat ica (12562865) Problem Insomnia, unspecified (780.52) Active confirmed Insomnia (136928795) Problem Throat pain (784.1) Active confirmed Throat pain (119364518) Problem Neck sprain and strain (847.0) Active confirmed Neck sprain (151498700) Problem Unspecified pre-operative examination (V72.84) Active confirmed Pre-operative evaluation (717600033) Problem Nondependent alcohol abuse, 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) Active confirmed Nondependent alcohol abuse (710719487) Problem Nondependent tobacco use disorder (305.1) Active confirmed Tobacco use r (858941035) Problem Counseling on other sexually transmitted diseases (V65.45) Active confirmed Counseling for sexually transmitted disease (499359846) Problem Mixed hyperlipidemia (E78.2) Active confirmed Mixed hyperlipidemia (063833438) Problem Disorder of bilirubin metabolism, 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 Disorder of bilirubin metabolism (70143367) Problem Hypokalemia (E87.6) Active confirmed Hypokalemia (62592777) Problem Essential (primary) hypertension (I10) Active confirmed Essential hypertension (07078739) Problem Dorsalgia, unspecified (M54.9) Active confirmed Backache (581330412) Problem Unspecified hydronephrosis (N13.30) Active confirmed Hydronephrosis (60244254) Problem Palpitations (R00.2) Active confirmed Palpitations (29425613) Problem Edema, unspecified (R60.9) Active confirmed Edema (86522384) Problem Impaired fasting glucose (R73.01) Active confirmed Impaired fa sting glucose (318656201) Problem Abnormal results of kidney function studies (R94.4) Active confirmed Abnormal result s of kidney function studies (889256014) Problem Encounter for general adult medical examination without abnormal findings (Z00.00) Active confirmed Adult heal th examination (929055045) Problem Encounter for other preprocedural examination (Z01.818) Active confirmed Pre-procedure evaluation check (993865567) Problem Body mass index (BMI) 28.0-28.9, adult (Z68.28) Active confirmed Body mass ind ex 25-29 - overweight (631984715) Problem Body mass index (BMI) 29.0-29.9, adult (Z68.29) Active confirmed BMI 25-29 - overweight (915269182) Problem Body mass index (BMI) 30.0-30.9, adult (Z68.30) Active confirmed Body mass ind ex 30+ - obesity (729433021) PLAN OF TREATMENT Pending Test Test Name Order Date MRI : Lumbosacral Spines 10/08/2017 Ultrasound : Breast, left 03/29/2014 Ultrasound : Kidneys, bilateral 06/20/19 14 Ultrasound : Abdomen 06/11/2016 Ultrasound : Breasts, bilateral 01/22/20 18 Ultrasound : Breasts, bilateral 09/17/19 19 Echocardiogram 02/24/2013 Colonoscopy 11/03/2012 Chest X-ray PA and lateral 07/17/2016 Chest X-ray PA and lateral 02/06/2016 Electrocardiogram (EKG) 01/09/2016 Urinalysis, Complete 10/11/2015 Urinalysis, Complete 12/26/2012 Urinalysis, Complete 11/15/2014 Urinalysis, Complete 02/24/2013 Urinalysis, Complete 11/03/2012 Urinalysis, Complete 08/11/2012 Urinalysis, Complete 11/09/2011 Urinalysis, Complete 11/17/2013 Urinalysis, Complete 05/31/2015 Urinalysis, Complete 03/29/2014 TSH 03/29/2014 TSH 02/08/2020 TSH 08/17/2020 TSH 11/15/2020 TSH 03/14/2021 TSH 11/17/2013 TSH 09/30/2019 TSH 08/11/2012 TSH 11/09/2011 TSH 02/03/2019 TSH 10/28/2018 TSH 07/08/2018 TSH 03/25/2018 TSH 05/31/2015 TSH 11/15/2014 TSH 02/24/2013 TSH 12/26/2012 TSH 11/03/2012 TSH 03/27/2016 TSH 10/11/2015 TSH 03/01/2017 TSH 11/20/2016 TSH 06/04/2017 TSH 10/08/2017 CBC With Differential/Platelet 3 CBC With Differential/Platelet 3 CBC With Differential/Platelet 4 CBC With Differential/Platelet 4 CBC With Differential/Platelet 2 CBC With Differential/Platelet 4 CBC With Differential/Platelet 9 CBC With Differential/Platelet 5 CBC With Differential/Platelet 6 Lipid Panel 12/26/2012 Lipid Panel 10/11/2015 Lipid Panel 03/29/2014 Comp. Metabolic Panel (14) 03/29/2014 Comp. Metabolic Panel (14) 10/11/2015 Comp. Metabolic Panel (14) 03/27/2016 Comp. Metabolic Panel (14) 06/04/2017 Comp. Metabolic Panel (14) 10/08/2017 Comp. Metabolic Panel (14) 11/20/2016 Comp. Metabolic Panel (14) 03/01/2017 Comp. Metabolic Panel (14) 05/31/2015 Comp. Metabolic Panel (14) 08/17/2020 Comp. Metabolic Panel (14) 02/08/2020 Comp. Metabolic Panel (14) 11/17/2013 Comp. Metabolic Panel (14) 11/15/2020 Comp. Metabolic Panel (14) 03/14/2021 Comp. Metabolic Panel (14) 09/30/2019 Comp. Metabolic Panel (14) 11/09/2011 Comp. Metabolic Panel (14) 02/03/2019 Comp. Metabolic Panel (14) 03/25/2018 Comp. Metabolic Panel (14) 07/08/2018 Comp. Metabolic Panel (14) 10/28/2018 Comp. Metabolic Panel (14) 02/24/2013 Comp. Metabolic Panel (14) 11/15/2014 Comp. Metabolic Panel (14) 12/26/2012 Comp. Metabolic Panel (14) 08/11/2012 Comp. Metabolic Panel (14) 11/03/2012 Lipid Profile 11/03/2012 Lipid Profile 08/11/2012 Lipid Profile 11/15/2014 Lipid Profile 02/24/2013 Lipid Profile 10/28/2018 Lipid Profile 07/08/2018 Lipid Profile 03/25/2018 Lipid Profile 02/03/2019 Lipid Profile 11/09/2011 Lipid Profile 09/30/2019 Lipid Profile 03/14/2021 Lipid Profile 11/15/2020 Lipid Profile 11/17/2013 Lipid Profile 02/08/2020 Lipid Profile 08/17/2020 Lipid Profile 05/31/2015 Lipid Profile 03/01/2017 Lipid Profile 11/20/2016 Lipid Profile 10/08/2017 Lipid Profile 06/04/2017 Lipid Profile 03/27/2016 Carotid Duplex 12/16/2018 X ray : LS Spine 07/26/2015 X ray : LS Spine 08/11/2012 X ray : LS Spine 06/19/2013 PSA, total 03/25/2018 PSA, total 06/04/2017 PSA, total 02/03/2019 PSA, total 11/09/2011 PSA, total 10/28/2018 PSA, total 07/08/2018 PSA, total 12/26/2012 PSA, total 02/24/2013 PSA, total 08/11/2012 PSA, total 11/03/2012 PSA, total 11/15/2014 PSA, total 05/31/2015 PSA, total 02/08/2020 PSA, total 08/17/2020 PSA, total 03/14/2021 PSA, total 11/17/2013 PSA, total 09/30/2019 INFLUENZA 12/13/2015 MRI : Cervical without Contrast 09/16/19 13 Ultrasound : Abd/Aorta Comp 12/16/2018 Ultrasound : Kidneys, bilateral with dop pler 11/20/2016 X ray : Toe 09/24/2014 HSV 2 IGG HERPESELECT AB 06/23/2015 HSV 2 IGG HERPESELECT AB 05/31/2015 BASIC METAB PANEL 01/11/2016 BASIC METAB PANEL 12/19/2017 BASIC METAB PANEL 12/10/2017 BASIC METAB PANEL 05/05/2018 BASIC METAB PANEL 01/11/2014 BASIC METAB PANEL 06/21/2014 BASIC METAB PANEL 06/19/2013 BASIC METAB PANEL 06/29/2014 BASIC METAB PANEL 12/28/2015 BASIC METAB PANEL 12/13/2015 BASIC METAB PANEL 05/09/2018 BASIC METAB PANEL 03/04/2014 COMP METAB PANEL 01/04/2014 COMP METAB PANEL 03/05/2013 COMP METAB PANEL 11/24/2012 COMP METAB PANEL 08/18/2012 COMP METAB PANEL 08/14/2018 COMP METAB PANEL 11/23/2015 COMP METAB PANEL 12/13/2016 COMP METAB PANEL 05/29/2016 COMP METAB PANEL 11/07/2017 COMP METAB PANEL 07/25/2017 COMP METAB PANEL 04/07/2014 COMP METAB PANEL 12/09/2014 COMP METAB PANEL 03/23/2015 COMP METAB PANEL 06/23/2015 COMP METAB PANEL 01/20/2016 COMP METAB PANEL 05/26/2018 HEPATITIS B SURFACE AB,QL 05/31/2015 HEPATITIS B SURFACE AB,QL 06/23/2015 MAGNESIUM 05/09/2018 MAGNESIUM 05/26/2018 MAGNESIUM 02/08/2020 MAGNESIUM 09/30/2019 PROTHROMBIN TIME W/ INR 05/27/2018 PSA,TOTAL 08/14/2018 PSA,TOTAL 06/23/2015 PSA,TOTAL 12/09/2014 PSA,TOTAL 04/23/2018 PSA,TOTAL 05/14/2018 PSA,TOTAL 07/25/2017 PSA,TOTAL 01/20/2016 PSA,TOTAL 11/24/2012 PSA,TOTAL 08/18/2012 PSA,TOTAL 03/05/2013 PSA,TOTAL 01/04/2014 TSH 01/04/2014 TSH 03/05/2013 TSH 11/24/2012 TSH 08/18/2012 TSH 01/20/2016 TSH 12/13/2016 TSH 05/29/2016 TSH 11/23/2015 TSH 04/23/2018 TSH 11/07/2017 TSH 07/25/2017 TSH 12/09/2014 TSH 04/07/2014 TSH 06/23/2015 TSH 03/23/2015 TSH 08/14/2018 TSH 05/14/2018 URINALYSIS,COMPLETE 05/14/2018 URINALYSIS,COMPLETE 08/14/2018 URINALYSIS,COMPLETE 03/27/2016 URINALYSIS,COMPLETE 11/20/2016 URINALYSIS,COMPLETE 03/01/2017 URINALYSIS,COMPLETE 10/08/2017 URINALYSIS,COMPLETE 06/04/2017 URINALYSIS,COMPLETE 06/23/2015 URINALYSIS,COMPLETE 05/29/2016 URINALYSIS,COMPLETE 11/23/2015 URINALYSIS,COMPLETE 04/07/2014 URINALYSIS,COMPLETE 12/09/2014 URINALYSIS,COMPLETE 11/07/2017 URINALYSIS,COMPLETE 07/25/2017 URINALYSIS,COMPLETE 04/23/2018 URINALYSIS,COMPLETE 12/13/2016 URINALYSIS,COMPLETE 08/17/2020 URINALYSIS,COMPLETE 02/08/2020 URINALYSIS,COMPLETE 09/30/2019 URINALYSIS,COMPLETE 11/15/2020 URINALYSIS,COMPLETE 03/14/2021 URINALYSIS,COMPLETE 06/19/2013 URINALYSIS,COMPLETE 10/28/2018 URINALYSIS,COMPLETE 03/25/2018 URINALYSIS,COMPLETE 07/08/2018 URINALYSIS,COMPLETE 02/03/2019 URINALYSIS,COMPLETE 08/18/2012 URINALYSIS,COMPLETE 11/24/2012 URINALYSIS,COMPLETE 03/05/2013 URINALYSIS,COMPLETE 01/04/2014 CBC (INCLUDES DIFF/PLT) 01/04/2014 CBC (INCLUDES DIFF/PLT) 03/05/2013 CBC (INCLUDES DIFF/PLT) 11/24/2012 CBC (INCLUDES DIFF/PLT) 08/18/2012 CBC (INCLUDES DIFF/PLT) 03/29/2014 CBC (INCLUDES DIFF/PLT) 12/26/2012 CBC (INCLUDES DIFF/PLT) 01/20/2016 CBC (INCLUDES DIFF/PLT) 12/13/2016 CBC (INCLUDES DIFF/PLT) 11/23/2015 CBC (INCLUDES DIFF/PLT) 05/29/2016 CBC (INCLUDES DIFF/PLT) 04/23/2018 CBC (INCLUDES DIFF/PLT) 07/25/2017 CBC (INCLUDES DIFF/PLT) 11/07/2017 CBC (INCLUDES DIFF/PLT) 12/09/2014 CBC (INCLUDES DIFF/PLT) 04/07/2014 CBC (INCLUDES DIFF/PLT) 06/23/2015 CBC (INCLUDES DIFF/PLT) 03/23/2015 CBC (INCLUDES DIFF/PLT) 10/11/2015 CBC (INCLUDES DIFF/PLT) 05/27/2018 CBC (INCLUDES DIFF/PLT) 08/14/2018 CBC (INCLUDES DIFF/PLT) 05/14/2018 HEMOGLOBIN A1C 10/11/2015 HEMOGLOBIN A1C 04/07/2014 HEMOGLOBIN A1C 06/29/2014 HEMOGLOBIN A1C 11/23/2015 HEMOGLOBIN A1C 12/19/2017 HEMOGLOBIN A1C 09/30/2019 HEMOGLOBIN A1C 03/17/2019 HEMOGLOBIN A1C 12/10/2017 HEMOGLOBIN A1C 12/26/2012 HEMOGLOBIN A1C 06/21/2014 HEMOGLOBIN A1C 03/29/2014 MICROSCOPIC EXAM,URINE 03/23/2015 MICROALBUMIN,RAND U(W/CR) 04/07/2014 MICROALBUMIN,RAND U(W/CR) 11/23/2015 MICROALBUMIN,RAND U(W/CR) 10/11/2015 MICROALBUMIN,RAND U(W/CR) 12/26/2012 MICROALBUMIN,RAND U(W/CR) 03/29/2014 HEPATITIS C AB 05/31/2015 HEPATITIS C AB 06/23/2015 URINALYSIS,REFLEX 03/23/2015 URINALYSIS,REFLEX 01/20/2016 LIPID PANEL 04/07/2014 LIPID PANEL 11/23/2015 LIPID PANEL CLARIFICATION 12/13/2016 LIPID PANEL CLARIFICATION 05/29/2016 LIPID PANEL CLARIFICATION 07/25/2017 LIPID PANEL CLARIFICATION 04/23/2018 LIPID PANEL CLARIFICATION 11/07/2017 LIPID PANEL CLARIFICATION 12/09/2014 LIPID PANEL CLARIFICATION 03/23/2015 LIPID PANEL CLARIFICATION 06/23/2015 LIPID PANEL CLARIFICATION 08/14/2018 LIPID PANEL CLARIFICATION 05/14/2018 LIPID PANEL CLARIFICATION 01/20/2016 LIPID PANEL CLARIFICATION 08/18/2012 LIPID PANEL CLARIFICATION 11/24/2012 LIPID PANEL CLARIFICATION 01/04/2014 LIPID PANEL CLARIFICATION 03/05/2013 COMP METABOLIC PANEL CLARIFICATION 04/23 COMP METABOLIC PANEL CLARIFICATION 05/14 COMPLETE BLOOD COUNT 03/27/2016 COMPLETE BLOOD COUNT 03/01/2017 COMPLETE BLOOD COUNT 06/04/2017 COMPLETE BLOOD COUNT 10/08/2017 COMPLETE BLOOD COUNT 11/20/2016 COMPLETE BLOOD COUNT 11/15/2020 COMPLETE BLOOD COUNT 09/30/2019 COMPLETE BLOOD COUNT 03/14/2021 COMPLETE BLOOD COUNT 08/17/2020 COMPLETE BLOOD COUNT 02/08/2020 COMPLETE BLOOD COUNT 10/28/2018 COMPLETE BLOOD COUNT 02/03/2019 COMPLETE BLOOD COUNT 03/25/2018 COMPLETE BLOOD COUNT 07/08/2018 HSV 1 IGG [...] Coverage End Date [employer] [address] [place] [address] [id number] Max Cortes Self - patient is the insured MEDICAL (GENERAL) HISTORY Medical History History ICD Code HTN microhematuria HERPES 2 in blood gout colonoscopy 2020 Repeat 5 yrs Surgical History Surgery Date(Month/Year) Rt inguinal hernia 2009 Hospitalization History Reason Date(Month/Year) cardiac cath 06/18/13 cardiac cath WNL 10/2015
== END 2024-06-23 14:42 | disposition home or self-care (01) ==
LOC: HO.US 14:41
PROVIDERS: PCP Physician Assistant; Visit Provider Internal Medicine Nephrology
DX: R80.9 Proteinuria, unspecified (principal)
CPT/HCPCS: 76775

== ENCOUNTER → 2024-06-23 14:43 | Outpatient (BNV) | payer MEDICARE, SELFPAY | PROVIDERS: PCP Physician Assistant; Visit Provider Radiology Diagnostic Radiology | DX: N28.1 Cyst of kidney, acquired (principal) | CPT/HCPCS: 76775 ==

== ENCOUNTER 2024-07-14 09:42 | Outpatient (REF) | payer MEDICARE, SELFPAY ==
--- OUTSIDE RECORDS SUMMARY | 2024-07-14 10:18 | XMS_ITS | Patient Health Record ---
Author Organization [facility] Address [address] [place] [address] [id number] Care Team Providers Care Logistics Solution Manager Name Role Phone [facility] Primary Care Provider [phone] Allergies No Known Allergies Reason For Referral No Information Medications Medication SIG (Take, Route, Frequency, Duration) Notes [...] Once a day for 30 days Active Immunizations Vaccine Route Administration Date Status Comme nts Influenza (whole) IM Intramuscular 12/13/2015 Administered Social History Tobacco Use: Social History Observation Description Date Details (start date - stop date) Never Smoker NA - NA Tobacco Use/Smoking Question Answer Notes Are you [...] had a Sexually transmitted disease ? No Problems Problem Type SNOMED Code ICD Code Onset Dates Problem Status W/U Status Risk Notes Problem Overweight (581746310) Overweight (278.02) Active confirmed Problem Benign essential hypertension (7351537) Essential hypertension, benign (401.1) Active confirmed Problem Sciatica (17162247) Sciatica (724.3) Active confirmed Problem Insomnia (478849872) Insomnia, unspecified (780.52) Active confirmed Problem Throat pain (880135593) Throat pain (784.1) Active confirmed Problem Neck sprain (846433137) Neck sprain and strain (847.0) Active confirmed Problem Pre-operative evaluation (254619224) Unspecified pre-operative examination (V72.84) Active confirmed Problem Nondependent alcohol abuse (378559991) Nondependent alcohol abuse, 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) Active confirmed Problem Tobacco user (056606228) Nondependent tobacco use disorder (305.1) Active confirmed Problem Counseling for sexually transmitted disease (600290786) Counseling on other sexually transmitted diseases (V65.45) Active confirmed Problem Mixed hyperlipidemia (350523612) Mixed hyperlipidemia (E78.2) Active confirmed Problem Disorder of bilirubin metabolism (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, 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 Problem Hypokalemia (96878783) Hypokalemia (E87.6) Active confirmed Problem Essential hypertension (84474768) Essential (primary) hypertension (I10) Active confirmed Problem Backache (519243795) Dorsalgia, unspecified (M54.9) Active confirmed Problem Hydronephrosis (47389934) Unspecified hydronephrosis (N13.30) Active confirmed Problem Palpitations (62243277) Palpitations (R00.2) Active confirmed Problem Edema (90167746) Edema, unspecified (R60.9) Active confirmed Problem Impaired fasting glucose (421019513) Impaired fasting glucose (R73.01) Active confirmed Problem Abnormal results of kidney function studies (471759898) Abnormal results of kidney function studies (R94.4) Active confirmed Problem Adult health examination (778824007) Encounter for general adult medical examination without abnormal findings (Z00.00) Active confirmed Problem Pre-procedure evaluation check (046737986) Encounter for other preprocedural examination (Z01.818) Active confirmed Problem Body mass index 25-29 - overweight (081107249) Body mass index (BMI) 28.0-28.9, adult (Z68.28) Active confirmed Problem BMI 25-29 - overweight (757626536) Body mass index (BMI) 29.0-29.9, adult (Z68.29) Active confirmed Problem Body mass index 30+ - obesity (610747991) Body mass index (BMI) 30.0-30.9, adult (Z68.30) Active confirmed Plan Of Treatment Pending Test Test Name Order Date MRI : Lumbosacral Spines 10/08/2017 Ultrasound : Breast, left 03/29/2014 Ultrasound : Kidneys, bilateral 06/20/19 14 Ultrasound : Abdomen 06/11/2016 Ultrasound : Breasts, bilateral 01/22/20 18 Ultrasound : Breasts, bilateral 09/17/19 19 Echocardiogram 02/24/2013 Colonoscopy 11/03/2012 Chest X-ray PA and lateral 07/17/2016 Chest X-ray PA and lateral 02/06/2016 Electrocardiogram (EKG) 01/09/2016 Urinalysis, Complete 11/15/2014 Urinalysis, Complete 05/31/2015 Urinalysis, Complete 02/24/2013 Urinalysis, Complete 12/26/2012 Urinalysis, Complete 11/17/2013 Urinalysis, Complete 03/29/2014 Urinalysis, Complete 11/09/2011 Urinalysis, Complete 11/03/2012 Urinalysis, Complete 08/11/2012 Urinalysis, Complete 10/11/2015 TSH 10/11/2015 TSH 08/11/2012 TSH 11/03/2012 TSH 09/30/2019 TSH 07/08/2018 TSH 03/27/2016 TSH 11/20/2016 TSH 03/25/2018 TSH 06/04/2017 TSH 03/01/2017 TSH 11/15/2020 TSH 10/08/2017 TSH 03/14/2021 TSH 11/09/2011 TSH 08/17/2020 TSH 03/29/2014 TSH 11/17/2013 TSH 12/26/2012 TSH 02/24/2013 TSH 05/31/2015 TSH 11/15/2014 TSH 02/08/2020 TSH 02/03/2019 TSH 10/28/2018 CBC With Differential/Platelet 9 CBC With Differential/Platelet 5 CBC With Differential/Platelet 6 CBC With Differential/Platelet 4 CBC With Differential/Platelet 3 CBC With Differential/Platelet 4 CBC With Differential/Platelet 4 CBC With Differential/Platelet 2 CBC With Differential/Platelet 3 Lipid Panel 12/26/2012 Lipid Panel 10/11/2015 Lipid Panel 03/29/2014 Comp. Metabolic Panel (14) 11/17/2013 Comp. Metabolic Panel (14) 12/26/2012 Comp. Metabolic Panel (14) 02/24/2013 Comp. Metabolic Panel (14) 05/31/2015 Comp. Metabolic Panel (14) 03/29/2014 Comp. Metabolic Panel (14) 11/15/2014 Comp. Metabolic Panel (14) 02/08/2020 Comp. Metabolic Panel (14) 11/09/2011 Comp. Metabolic Panel (14) 03/14/2021 Comp. Metabolic Panel (14) 10/08/2017 Comp. Metabolic Panel (14) 11/15/2020 Comp. Metabolic Panel (14) 08/17/2020 Comp. Metabolic Panel (14) 11/03/2012 Comp. Metabolic Panel (14) 08/11/2012 Comp. Metabolic Panel (14) 09/30/2019 Comp. Metabolic Panel (14) 03/25/2018 Comp. Metabolic Panel (14) 07/08/2018 Comp. Metabolic Panel (14) 11/20/2016 Comp. Metabolic Panel (14) 03/01/2017 Comp. Metabolic Panel (14) 06/04/2017 Comp. Metabolic Panel (14) 03/27/2016 Comp. Metabolic Panel (14) 10/11/2015 Comp. Metabolic Panel (14) 10/28/2018 Comp. Metabolic Panel (14) 02/03/2019 Lipid Profile 02/03/2019 Lipid Profile 10/28/2018 Lipid Profile 03/27/2016 Lipid Profile 06/04/2017 Lipid Profile 03/01/2017 Lipid Profile 11/20/2016 Lipid Profile 07/08/2018 Lipid Profile 03/25/2018 Lipid Profile 09/30/2019 Lipid Profile 08/11/2012 Lipid Profile 11/03/2012 Lipid Profile 08/17/2020 Lipid Profile 11/15/2020 Lipid Profile 10/08/2017 Lipid Profile 03/14/2021 Lipid Profile 11/09/2011 Lipid Profile 02/08/2020 Lipid Profile 11/15/2014 Lipid Profile 05/31/2015 Lipid Profile 02/24/2013 Lipid Profile 11/17/2013 Carotid Duplex 12/16/2018 X ray : LS Spine 06/19/2013 X ray : LS Spine 08/11/2012 X ray : LS Spine 07/26/2015 PSA, total 08/11/2012 PSA, total 07/08/2018 PSA, total 03/25/2018 PSA, total 09/30/2019 PSA, total 06/04/2017 PSA, total 11/17/2013 PSA, total 02/24/2013 PSA, total 12/26/2012 PSA, total 11/03/2012 PSA, total 05/31/2015 PSA, total 11/15/2014 PSA, total 02/08/2020 PSA, total 03/14/2021 PSA, total 11/09/2011 PSA, total 08/17/2020 PSA, total 02/03/2019 PSA, total 10/28/2018 INFLUENZA 12/13/2015 MRI : Cervical without Contrast 09/16/19 13 Ultrasound : Abd/Aorta Comp 12/16/2018 Ultrasound : Kidneys, bilateral with dop pler 11/20/2016 X ray : Toe 09/24/2014 HSV 2 IGG HERPESELECT AB 06/23/2015 HSV 2 IGG HERPESELECT AB 05/31/2015 BASIC METAB PANEL 06/21/2014 BASIC METAB PANEL 06/19/2013 BASIC METAB PANEL 01/11/2014 BASIC METAB PANEL 05/09/2018 BASIC METAB PANEL 03/04/2014 BASIC METAB PANEL 01/11/2016 BASIC METAB PANEL 12/28/2015 BASIC METAB PANEL 12/19/2017 BASIC METAB PANEL 12/13/2015 BASIC METAB PANEL 12/10/2017 BASIC METAB PANEL 05/05/2018 BASIC METAB PANEL 06/29/2014 COMP METAB PANEL 04/07/2014 COMP METAB PANEL 12/09/2014 COMP METAB PANEL 11/07/2017 COMP METAB PANEL 08/14/2018 COMP METAB PANEL 11/23/2015 COMP METAB PANEL 12/13/2016 COMP METAB PANEL 07/25/2017 COMP METAB PANEL 03/23/2015 COMP METAB PANEL 06/23/2015 COMP METAB PANEL 01/20/2016 COMP METAB PANEL 01/04/2014 COMP METAB PANEL 03/05/2013 COMP METAB PANEL 11/24/2012 COMP METAB PANEL 05/29/2016 COMP METAB PANEL 08/18/2012 COMP METAB PANEL 05/26/2018 HEPATITIS B SURFACE AB,QL 05/31/2015 HEPATITIS B SURFACE AB,QL 06/23/2015 MAGNESIUM 09/30/2019 MAGNESIUM 05/26/2018 MAGNESIUM 02/08/2020 MAGNESIUM 05/09/2018 PROTHROMBIN TIME W/ INR 05/27/2018 PSA,TOTAL 08/14/2018 PSA,TOTAL 05/14/2018 PSA,TOTAL 06/23/2015 PSA,TOTAL 04/23/2018 PSA,TOTAL 07/25/2017 PSA,TOTAL 01/20/2016 PSA,TOTAL 03/05/2013 PSA,TOTAL 11/24/2012 PSA,TOTAL 08/18/2012 PSA,TOTAL 01/04/2014 PSA,TOTAL 12/09/2014 TSH 04/07/2014 TSH 12/09/2014 TSH 03/23/2015 TSH 01/04/2014 TSH 01/20/2016 TSH 11/24/2012 TSH 08/18/2012 TSH 03/05/2013 TSH 05/29/2016 TSH 07/25/2017 TSH 12/13/2016 TSH 06/23/2015 TSH 11/23/2015 TSH 04/23/2018 TSH 05/14/2018 TSH 11/07/2017 TSH 08/14/2018 URINALYSIS,COMPLETE 08/14/2018 URINALYSIS,COMPLETE 04/23/2018 URINALYSIS,COMPLETE 05/14/2018 URINALYSIS,COMPLETE 12/13/2016 URINALYSIS,COMPLETE 11/23/2015 URINALYSIS,COMPLETE 06/23/2015 URINALYSIS,COMPLETE 07/25/2017 URINALYSIS,COMPLETE 11/07/2017 URINALYSIS,COMPLETE 09/30/2019 URINALYSIS,COMPLETE 07/08/2018 URINALYSIS,COMPLETE 03/25/2018 URINALYSIS,COMPLETE 03/01/2017 URINALYSIS,COMPLETE 06/04/2017 URINALYSIS,COMPLETE 03/27/2016 URINALYSIS,COMPLETE 11/20/2016 URINALYSIS,COMPLETE 05/29/2016 URINALYSIS,COMPLETE 03/05/2013 URINALYSIS,COMPLETE 11/24/2012 URINALYSIS,COMPLETE 08/18/2012 URINALYSIS,COMPLETE 08/17/2020 URINALYSIS,COMPLETE 01/04/2014 URINALYSIS,COMPLETE 11/15/2020 URINALYSIS,COMPLETE 03/14/2021 URINALYSIS,COMPLETE 10/08/2017 URINALYSIS,COMPLETE 02/08/2020 URINALYSIS,COMPLETE 06/19/2013 URINALYSIS,COMPLETE 12/09/2014 URINALYSIS,COMPLETE 10/28/2018 URINALYSIS,COMPLETE 02/03/2019 URINALYSIS,COMPLETE 04/07/2014 CBC (INCLUDES DIFF/PLT) 04/07/2014 CBC (INCLUDES DIFF/PLT) 03/23/2015 CBC (INCLUDES DIFF/PLT) 12/09/2014 CBC (INCLUDES DIFF/PLT) 03/29/2014 CBC (INCLUDES DIFF/PLT) 12/26/2012 CBC (INCLUDES DIFF/PLT) 01/04/2014 CBC (INCLUDES DIFF/PLT) 01/20/2016 CBC (INCLUDES DIFF/PLT) 11/24/2012 CBC (INCLUDES DIFF/PLT) 08/18/2012 CBC (INCLUDES DIFF/PLT) 03/05/2013 CBC (INCLUDES DIFF/PLT) 05/29/2016 CBC (INCLUDES DIFF/PLT) 07/25/2017 CBC (INCLUDES DIFF/PLT) 12/13/2016 CBC (INCLUDES DIFF/PLT) 11/23/2015 CBC (INCLUDES DIFF/PLT) 06/23/2015 CBC (INCLUDES DIFF/PLT) 05/14/2018 CBC (INCLUDES DIFF/PLT) 04/23/2018 CBC (INCLUDES DIFF/PLT) 11/07/2017 CBC (INCLUDES DIFF/PLT) 10/11/2015 CBC (INCLUDES DIFF/PLT) 08/14/2018 CBC (INCLUDES DIFF/PLT) 05/27/2018 HEMOGLOBIN A1C 10/11/2015 HEMOGLOBIN A1C 12/19/2017 HEMOGLOBIN A1C 11/23/2015 HEMOGLOBIN A1C 12/10/2017 HEMOGLOBIN A1C 09/30/2019 HEMOGLOBIN A1C 12/26/2012 HEMOGLOBIN A1C 03/29/2014 HEMOGLOBIN A1C 06/21/2014 HEMOGLOBIN A1C 06/29/2014 HEMOGLOBIN A1C 04/07/2014 HEMOGLOBIN A1C 03/17/2019 MICROSCOPIC EXAM,URINE 03/23/2015 MICROALBUMIN,RAND U(W/CR) 04/07/2014 MICROALBUMIN,RAND U(W/CR) 03/29/2014 MICROALBUMIN,RAND U(W/CR) 12/26/2012 MICROALBUMIN,RAND U(W/CR) 11/23/2015 MICROALBUMIN,RAND U(W/CR) 10/11/2015 HEPATITIS C AB 06/23/2015 HEPATITIS C AB 05/31/2015 URINALYSIS,REFLEX 01/20/2016 URINALYSIS,REFLEX 03/23/2015 LIPID PANEL 04/07/2014 LIPID PANEL 11/23/2015 LIPID PANEL CLARIFICATION 12/13/2016 LIPID PANEL CLARIFICATION 07/25/2017 LIPID PANEL CLARIFICATION 03/23/2015 LIPID PANEL CLARIFICATION 06/23/2015 LIPID PANEL CLARIFICATION 08/14/2018 LIPID PANEL CLARIFICATION 04/23/2018 LIPID PANEL CLARIFICATION 11/07/2017 LIPID PANEL CLARIFICATION 05/14/2018 LIPID PANEL CLARIFICATION 01/20/2016 LIPID PANEL CLARIFICATION 01/04/2014 LIPID PANEL CLARIFICATION 05/29/2016 LIPID PANEL CLARIFICATION 03/05/2013 LIPID PANEL CLARIFICATION 11/24/2012 LIPID PANEL CLARIFICATION 08/18/2012 LIPID PANEL CLARIFICATION 12/09/2014 COMP METABOLIC PANEL CLARIFICATION 04/23 COMP METABOLIC PANEL CLARIFICATION 05/14 COMPLETE BLOOD COUNT 07/08/2018 COMPLETE BLOOD COUNT 03/25/2018 COMPLETE BLOOD COUNT 09/30/2019 COMPLETE BLOOD COUNT 06/04/2017 COMPLETE BLOOD COUNT 03/01/2017 COMPLETE BLOOD COUNT 11/20/2016 COMPLETE BLOOD COUNT 03/27/2016 COMPLETE BLOOD COUNT 08/17/2020 COMPLETE BLOOD COUNT 11/15/2020 COMPLETE BLOOD COUNT 03/14/2021 COMPLETE BLOOD COUNT 10/08/2017 COMPLETE BLOOD COUNT 02/08/2020 COMPLETE BLOOD COUNT 02/03/2019 COMPLETE BLOOD COUNT 10/28/2018 HSV 1 IGG HERPESELECT AB 05/31/2015 HSV [...] Coverage End Date [employer] [address] [place], [place] [id number] Max Cortes Self - patient is the insured Medical (General) History Medical History History ICD Code HTN microhematuria HERPES 2 in blood gout colonoscopy 2020 Repeat 5 yrs Surgical History Surgery Date(Month/Year) Rt inguinal hernia 2009 Hospitalization History Reason Date(Month/Year) cardiac cath 06/18/13 cardiac cath WNL 10/2015
[2024-07-14 18:12] LABS: Anion Gap 11 (12-20); Blood Urea Nitrogen 16 mg/dL (9-16); Carbon Dioxide 23 mmol/L (22-29); Chloride 110 mmol/L (96-108); Estimated Glomerular Filt Rate > 60; Potassium 3.7 mmol/L (3.3-5.1); Sodium 140 mmol/L (135-145)
[2024-07-15 16:33] LABS: Anti DNA DS Antibody 26 IU/mL; Anti Glomerular Basement Memb <1.0 AI; Myeloperoxidase Antibody <1.0 AI; Proteinase 3 PR3 Antibodies <1.0 AI
[2024-07-16 07:33] LABS: IgA 355 mg/dL (70-320); IgG 1437 mg/dL (600-1540); IgM 95 mg/dL (50-300)
[2024-07-16 12:44] LABS: Complement C3 125 mg/dL
[2024-07-23 23:59] LABS: Phospholipase A2 IgG ELISA <4 RU/mL; Phospholipase A2 IgG IFA NEGATIVE (NEGATIVE)
== END 2024-07-14 09:43 | disposition home or self-care (01) ==
LOC: HO.HKASLDS 09:42
PROVIDERS: Visit Provider Internal Medicine Nephrology
DX: R80.9 Proteinuria, unspecified (principal)
CPT/HCPCS: 80051; 82565; 82784; 83520; 84520; 86021; 86160; 86225; 86255; 86334; 86335

== ENCOUNTER 2024-07-21 08:49 | Outpatient (REF) | payer MEDICARE, SELFPAY ==
--- NOTE | ~2024-07-21 | CT_ITS ---
CLINICAL HISTORY: N13.30 - Unspecified hydronephrosis --- Additional Notes or Special Instructions: w ithout IV contrast CT abdomen and pelvis without IV contrast. COMPARISON: None FINDINGS: Minimal atelectasis along the posterior lower lobes. Small hiatal hernia. Normal gallbladder noncontrast appearance of the liver, spleen, pancreas and adrenal glands are unremarkable. Moderate bilateral hydronephrosis. Likely parapelvic cysts also present. No hydroureter bilaterally. No renal or ureteral calculus bilaterally. Right renal cystic lesion measuring 2.1 cm. Left renal cystic lesion measuring 1.6 cm. No renal or ureteral calculus bilaterally. Normal appendix. Mild colonic stool burden. Mild distal colonic diverticulosis without evidence of diverticulitis. No mesenteric or retroperitoneal lymphadenopathy. Moderate aortoiliac atherosclerotic vascular calcifications. Urinary bladder is unremarkable given degree of distention. No inguinal lymphadenopathy. Small fat containing umbilical hernia. [id number] multilevel spondylosis. No acute fracture or suspicious bone lesion. IMPRESSION: 1. Moderate bilateral hydronephrosis with likely parapelvic cysts also present. No cause for obstruction identified. Ureters are contracted bilaterally. No renal or ureteral calculus bilaterally. This document has been electronically signed by: Dagoberto Pena MD on 07/21/2024 15:06:46
--- OUTSIDE RECORDS SUMMARY | 2024-07-21 09:23 | XMS_ITS | Patient Health Record ---
Author Organization [facility] Address [address] [place] [address] [id number] Care Team Providers Care Civil Engineering Manager Name Role Phone [facility] Primary Care Provider [phone] Allergies No Known Allergies Reason For Referral [...] Status W/U Status Risk Notes Problem Overweight (530410302) Overweight (278.02) Active confirmed Problem Benign essential hypertension (5874204) Essential hypertension, benign (401.1) Active confirmed Problem Sciatica (95132394) Sciatica (724.3) Active confirmed Problem Insomnia (836740944) Insomnia, unspecified (780.52) Active confirmed Problem Throat pain (422339002) Throat pain (784.1) Active confirmed Problem Neck sprain (919033957) Neck sprain and strain (847.0) Active confirmed Problem Pre-operative evaluation (982546138) Unspecified pre-operative examination (V72.84) Active confirmed Problem Nondependent alcohol abuse (791128049) Nondependent alcohol abuse, 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) Active confirmed Problem Tobacco user (588754098) Nondependent tobacco use disorder (305.1) Active confirmed Problem Counseling for sexually transmitted disease (596842157) Counseling on other sexually transmitted diseases (V65.45) Active confirmed Problem Mixed hyperlipidemia (800302098) Mixed hyperlipidemia (E78.2) Active confirmed Problem Disorder of bilirubin metabolism (49301600) Disorder of bilirubin metabolism, 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 Problem Hypokalemia (08254755) Hypokalemia (E87.6) Active confirmed Problem Essential hypertension (39980158) Essential (primary) hypertension (I10) Active confirmed Problem Backache (794098315) Dorsalgia, unspecified (M54.9) Active confirmed Problem Hydronephrosis (13084508) Unspecified hydronephrosis (N13.30) Active confirmed Problem Palpitations (86547490) Palpitations (R00.2) Active confirmed Problem Edema (54776285) Edema, unspecified (R60.9) Active confirmed Problem Impaired fasting glucose (698968584) Impaired fasting glucose (R73.01) Active confirmed Problem Abnormal results of kidney function studies (566504517) Abnormal results of kidney function studies (R94.4) Active confirmed Problem Adult health examination (260995081) Encounter for general adult medical examination without abnormal findings (Z00.00) Active confirmed Problem Pre-procedure evaluation check (468976988) Encounter for other preprocedural examination (Z01.818) Active confirmed Problem Body mass index 25-29 - overweight (006654394) Body mass index (BMI) 28.0-28.9, adult (Z68.28) Active confirmed Problem BMI 25-29 - overweight (484659461) Body mass index (BMI) 29.0-29.9, adult (Z68.29) Active confirmed Problem Body mass index 30+ - obesity (505761112) Body mass index (BMI) 30.0-30.9, adult (Z68.30) [...] Coverage End Date [employer] [address] [place], [place] [id number] [phone] [id number] Max Cortes Self - patient is the insured Medical (General) History Medical History History ICD Code HTN microhematuria HERPES 2 in blood gout colonoscopy 2020 Repeat 5 yrs Surgical History Surgery Date(Month/Year) Rt inguinal hernia 2009 Hospitalization History Reason Date(Month/Year) cardiac cath 06/18/13 cardiac cath WNL 10/2015
== END 2024-07-21 08:50 | disposition home or self-care (01) ==
LOC: HO.CT 08:49
PROVIDERS: PCP Physician Assistant; Visit Provider Nurse Practitioner Family
DX: N13.30 Unspecified hydronephrosis (principal); R80.8 Other proteinuria; I10 Essential (primary) hypertension
CPT/HCPCS: 74176; 99212

== ENCOUNTER → 2024-07-21 08:53 | Outpatient (BNV) | payer MEDICARE, SELFPAY | PROVIDERS: PCP Physician Assistant; Visit Provider Radiology Diagnostic Radiology | DX: N13.30 Unspecified hydronephrosis (principal) | CPT/HCPCS: 74176 ==

== ENCOUNTER 2024-07-21 10:43 | Outpatient (AMB) | payer MEDICARE, SELFPAY ==
--- NOTE | 2024-07-21 11:00 | HO.NEPHOV_ITS ---
Vital Signs 07/21/24 11:01 Height 5 ft 6 in Weight 179 lb 4 oz BMI 28.9 BP 130/60 Blood Pressure Location Lt brachial Position Sitting Pulse 61 Pulse Source Pulse Oximeter Pulse Oximetry (%) 95 Oxygen Delivery Method Room Air Intake Visit Reasons: 6wk follow-up w/labs-Conf Obstetrics/Gynecology Nurse Required: No Accompanied by: Self / Same As Patient Allergies No Known Allergies Allergy (Verified 07/21/24 11:01) HPI Comments Details: Mr Keller was seen in F/U for proteinuria , hypertension and mild CKD. He is 79 years of age and is in good health. He has relocated himself from [place]. He denies CAD, CVA, CHF, PAD, carotid disease but has hypertension for a long time. 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 According to him his BP is at goal. He is not very strict with low sodium diet but tries to eat healthy. He is not a diabetic. He denies taking excess NSAID's. He is not on ACEI or ARB. He had no edema , hematuria or any specific systemic complaint at the time of this office visit. 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 Cognitive needs: No Hearing needs: No Vision needs: No Review of Systems Const All systems reviewed & are unremarkable except as noted in HPI and below Physical Exam Vital Signs: Last Vital Signs Pulse 61 07/21/24 11:01 BP 130/60 07/21/24 11:01 Pulse Ox 95 07/21/24 11:01 Oxygen Delivery Method Room Air 07/21/24 11:01 BMI result Body Mass Index 28.9 Const General: comfortable and no acute distress Orientation/consciousness: patient oriented x3 HEENT Head: Yes normocephalic Mouth: Normal oral and palatal mucosa present Eyes EOM: EOMs intact bilaterally Neck Neck: Yes supple Resp Auscultation: clear to auscultation bilaterally Cardio Jugular venous distension: no JVD Rate: regular rate GI Palpation (GI): Soft to palpation Auscultation: normal bowel sounds General: Yes no CVA tenderness Back/Spine/Pelvis Back: no CVA tenderness Skin General skin exam: no rashes or lesions noted Neuro General: patient oriented x3 and moves all extremities Extrem General: Yes no pedal edema Results Reviewed Nephrology Results: Hgb 14.1 g/dl (14.0-18.0) 06/08/24 WBC 7.0 X10*3/uL (4.8-10.8) 06/08/24 Plt Count 290 X10*3/uL (160-400) 06/08/24 Sodium 140 mmol/L (135-145) 07/14/24 Potassium 3.7 mmol/L (3.3-5.1) 07/14/24 Chloride 110 mmol/L (96-108) H 07/14/24 Carbon Dioxide 23 mmol/L (22-29) 07/14/24 BUN 16 mg/dL (9-16) 07/14/24 Creatinine 0.83 mg/dL (0.5-1.4) 07/14/24 Calcium 8.8 mg/dL (8.4-10.2) 06/08/24 Urine Creatinine 127.47 mg/dL 06/08/24 Renal US 06/23/24 Assessment & Plan Assessment & Plan (1) Hydronephrosis: Code(s): N13.30 - Unspecified hydronephrosis Category: Medical Qualifiers: Hydronephrosis type: other Qualified Code(s): N13.39 - Other hydronephrosis (2) Proteinuria: Code(s): R80.9 - Proteinuria, unspecified Category: Medical Qualifiers: Proteinuria type: other Qualified Code(s): R80.8 - Other proteinuria (3) HTN (hypertension): Code(s): I10 - Essential (primary) hypertension Category: Medical Qualifiers: Hypertension type: primary hypertension Qualified Code(s): I10 - Essential (primary) hypertension Plan Mr Keller has mild CKD and proteinuria likely from his longstanding hypertension. He is not a diabetic. He has aortic root dilatation. He has no H/O HF. He is not on any ACEI/ARB. His BP needs to be kept at goal. His CT results is pending. He will be a candidate for ACEI/ARB as well as SGLT2 i later after revieweing his CT results. Further management is pending evolving data. Answered all questions & F/U given Orders: Orders Protein Creatinine Ratio, Ur 3 Months N13.39 - Other hydronephrosis, R80.8 - Other proteinuria Creatinine 3 Months N13.39 - Other hydronephrosis, R80.8 - Other proteinuria Blood Urea Nitrogen 3 Months N13.39 - Other hydronephrosis, R80.8 - Other proteinuria Electrolytes 3 Months N13.39 - Other hydronephrosis, R80.8 - Other proteinuria Calcium 3 Months N13.39 - Other hydronephrosis, R80.8 - Other proteinuria Coding Level of Care Code Est Pt Level 4 (69202) Diagnoses Other hydronephrosis N13.39 Hydronephrosis type: other Other proteinuria R80.8 Proteinuria type: other Primary hypertension I10 Hypertension type: primary hypertension
[2024-07-21 11:01] VITALS: BP 130/60; PULSE 61; O2SAT 95; BMI 28.9
== END 2024-07-21 11:20 | disposition home or self-care (01) ==
LOC: HO.HKAS 10:43
PROVIDERS: PCP Physician Assistant; Visit Provider Internal Medicine Nephrology
DX: N13.39 Other hydronephrosis (principal); R80.8 Other proteinuria; I10 Essential (primary) hypertension
CPT/HCPCS: 99214

== ENCOUNTER 2024-08-13 10:10 | Outpatient (AMB) | payer MEDICARE, MEDICAID, SELFPAY ==
[2024-08-13 10:13] VITALS: BP 134/60; PULSE 60; TEMP 36.4; O2SAT 96; BMI 28.8
--- NOTE | 2024-08-13 10:13 | MHC.PC.OV ---
Vital Signs 08/13/24 10:13 Height 5 ft 6 in Weight 178 lb 6 oz BMI 28.8 BP 134/60 Blood Pressure Location Lt brachial Position Sitting Pulse 60 Pulse Source Pulse Oximeter Temp 97.5 F Temp Source Temporal Artery Scan Pulse Oximetry (%) 96 Oxygen Delivery Method Room Air Intake Visit Reasons: f/u HTN/ HLD Rehabilitation Nurse Required: No Accompanied by: Self / Same As Patient Allergies No Known Allergies Allergy (Verified 08/13/24 10:28) Medication List - Last Reconciled 08/13/24 by Znader Macedo PA-C aspirin 81 mg PO DAILY 90 days atenolol 100 mg PO BEDTIME 90 days atorvastatin 10 mg PO DAILY 90 days colchicine 0.3 mg (1/2 x 0.6 mg) PO DAILY PRN 14 days loratadine 5 mg PO DAILY 90 days melatonin 3 mg PO BEDTIME PRN 30 days melatonin 3 mg PO BEDTIME PRN 30 days methylprednisolone mg PO nifedipine ER 30 mg PO DAILY polymyxin B sulf-trimethoprim 10,000 unit- 1 mg/mL 1 drp ophthalmic (eye) QID PRN 7 days tamsulosin 0.4 mg PO BEDTIME 90 days tamsulosin 0.4 mg PO BEDTIME 90 days Tobacco use date assessed: 04/16/24 Fall risk assessment: No Falls in past year Last assessed Fall Risk: 08/13/24 Dental Screening Dental Screen Date: 04/16/24 HPI f/u HTN/ HLD HPI Details Patient is a 79-year-old male here today for a follow-up visit Patient's past medical history significant for BPH, hypertension, hyperlipidemia. He seems to be somewhat of a poor historian. Concern--> Patient followed by Nephrology here in [place] most recent urinalysis showing elevated proteins. Did get an ultrasound did show evidence of hydronephrosis. Repeat imaging of CT scanning showing bilateral moderate hydronephrosis which per patient has been consistent finding. Does have a right renal cyst as well. He will be following up with Urology regarding his proteinuria Hypertension: On atenolol, nifedipine . He denies any side effects. Patient's blood pressure acceptable today in office BPH: Patient continues on tamsulosin with good effect on his urinary flow. Has an upcoming appointment with [facility]. .. Cardiomyopathy: Has followed up with [facility]. 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 Seems to have had a low cardiac calcium score. Most recent pro Pro BNP slightly elevated at 666. Laboratory Tests 06/10/23 10/11/23 06/08/24 09:40 13:39 11:15 Creatinine 1.02 Fasting Glucose 107 H Hemoglobin A1c % 5.6 Cholesterol 161 Urine Microalbumin 126.0 296.0 PFSH Medical History History of fractured rib Gout flare Surgical History Hernia Family History Mother Heart attack HTN (hypertension) Father HTN (hypertension) Heart attack Sister DM2 (diabetes mellitus, type 2) Social History Housing: House Alcohol intake: current Alcohol intake frequency: holidays/special occasions only Alcohol type: beer Patient Tobacco Use Status: Former Tobacco user Tobacco use type: Cigarette e-Cigarette/Vaping Use: Never Used service: No 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 Henrique Vaughn, Marcie Hoyos, Altaf Swanson and colleagues, with an educational jennifer from [employer]. Review of Systems Const Denies headache(s) Eyes Denies loss of vision ENT Denies vertigo, Denies dizziness, Denies headache(s) and Denies sore throat Card Denies chest pain, Denies leg edema and Denies lightheadedness Resp Denies cough, Denies hemoptysis and Denies wheezing GI Denies abdominal pain, Denies melena, Denies constipation, Denies diarrhea and Denies vomiting Denies dysuria, Denies urinary frequency and Denies urinary urgency Musc Denies arthralgias, Denies joint swelling, Denies numbness and Denies tingling Neuro Denies Abnormal speech present, Denies behavioral changes, Denies vertigo, Denies dizziness, Denies headache(s), Denies loss of vision, Denies memory loss, Denies numbness and Denies tingling Psych Denies anxiety, Denies behavioral changes, Denies depression, Denies memory loss and Denies panic attacks Dalton/Lymph Denies easy bleeding and Denies easy bruising Aller/Immun Denies wheezing Physical exam (Primary Care) Vital Signs: Last Vital Signs Temp 97.5 F 08/13/24 10:13 Pulse 60 08/13/24 10:13 BP 134/60 08/13/24 10:13 Pulse Ox 96 08/13/24 10:13 Oxygen Delivery Method Room Air 08/13/24 10:13 BMI result Body Mass Index 28.8 Tobacco/Smoking Status: Tobacco use Status Tobacco use date assessed 04/16/24 08/13/24 10:13 Patient Tobacco Use Status Former Tobacco user 08/13/24 10:13 Tobacco use type Cigarette 08/13/24 10:13 e-Cigarette/Vaping Use Never Used 08/13/24 10:13 Thrive Assessment: Date of Thrive Assessment Date Thrive assessed 04/16/24 08/13/24 10:13 Const General: healthy appearing, no acute distress, alert and awake Nutritional Appearance: well nourished Orientation/consciousness: oriented to person, oriented to place and oriented to time HENMT Ears: TM's normal bilaterally General nose exam: Normal nasal mucous membranes and turbinates present Eyes Conjunctivae: conjunctivae normal Sclerae: sclerae normal Pupils: Equal, round and reactive pupils present Neck Neck: Yes no lymphadenopathy and Yes no JVD Thyroid: Thyroid normal Carotids: no bruits Resp Effort & Inspection: normal respiratory effort and not tachypneic Auscultation: no crackles, no rales, no rhonchi and no wheezes Cardio Rate: regular rate Rhythm: regular rhythm Heart sounds: no murmurs and normal S1 and S2 GI Palpation (GI): Soft to palpation, nontender, no hepatomegaly and no splenomegaly Auscultation: normal bowel sounds Skin General skin exam: no rashes or lesions noted and dry skin Neuro General: oriented to person, oriented to place and oriented to time Cranial nerves: Yes Equal, round and reactive pupils present Speech: No Abnormal speech present Gait exam (Neuro): Normal gait present Motor exam (neuro): no tremor noted Extrem Right upper extremity: full ROM Left upper extremity: full ROM Right lower extremity: full ROM; no edema Left lower extremity: full ROM; no edema Psych Mental Status: mental status grossly normal Speech and movement: Normal speech and movement present Affect: normal affect Attitude: cooperative Thought process: Normal thought process present Coding Level of Care Code Est Pt Level 4 (97858) Diagnoses Mixed hyperlipidemia E78.2 Hyperlipidemia type: mixed hyperlipidemia Primary hypertension I10 Hypertension type: primary hypertension Other proteinuria R80.8 Proteinuria type: other Other hydronephrosis N13.39 Hydronephrosis type: other Assessment & Plan Assessment & Plan (1) HLD (hyperlipidemia): Code(s): E78.5 - Hyperlipidemia, unspecified Category: Medical Qualifiers: Hyperlipidemia type: mixed hyperlipidemia Qualified Code(s): E78.2 - Mixed hyperlipidemia Plan: Patient continues on atorvastatin 10 mg. Most recent lipid panel showing good control of his total cholesterol and LDL. LDL remains below 100 (2) HTN (hypertension): Code(s): I10 - Essential (primary) hypertension Category: Medical Qualifiers: Hypertension type: primary hypertension Qualified Code(s): I10 - Essential (primary) hypertension Plan: Patient's blood pressure acceptable today in office. Will continue current dose of antihypertensive medication with goal blood pressure to remain below 140/90 (3) Proteinuria: Code(s): R80.9 - Proteinuria, unspecified Category: Medical Qualifiers: Proteinuria type: other Qualified Code(s): R80.8 - Other proteinuria Plan: Proteinuria is being managed with medication prescribed by the urologist. Further evaluation and management are planned. (4) Hydronephrosis: Code(s): N13.30 - Unspecified hydronephrosis Category: Medical Qualifiers: Hydronephrosis type: other Qualified Code(s): N13.39 - Other hydronephrosis Plan: As per HPI patient has bilateral hydronephrosis. 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
--- OUTSIDE RECORDS SUMMARY | 2024-08-13 11:44 | XMS_ITS | Patient Health Record ---
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 Name Role Phone [facility] Primary Care Provider Allergies No Known Allergies Reason For Referral No Information Medications Medication SIG (Take, Route, Frequency, Duration) Notes Start Date End Date Status hydroCHLOROthiazide 12.5 MG 1 capsule in the morning Orally Once a day; Duration: 30 days 09/27/2020 Active Atenolol 100 MG 1 tablet Orally Once a day; Duration: 30 days 08/17/2020 Active Potassium Chloride Farhana ER 2 0 MEQ 1 tablet with food Orally Twice a day; Duration: 30 day(s) Active Acetaminophen 500 MG 1 capsule as needed Orally every 6 hrs; Duration: 30 days 08/11/2012 Active Aspirin 81 MG 1 tablet Orally Once a day; Duration: 30 days 02/24/2013 Active Colcrys 0.6 MG 1 tablet Orally Once a day; Duration: 30 days 01/21/2018 Active Atorvastatin Calcium 10 MG 1 tablet Oral ly Once a day; Duration: 30 days Active Immunizations Vaccine Route Administration [...] Status W/U Status Risk Notes Problem Overweight (397805236) Overweight (278.02) Active confirmed Problem Benign essential hypertension (2529385) Essential hypertension, benign (401.1) Active confirmed Problem Sciatica (59382692) Sciatica (724.3) Active confirmed Problem Insomnia (906478376) Insomnia, unspecified (780.52) Active confirmed Problem Throat pain (218939094) Throat pain (784.1) Active confirmed Problem Neck sprain (323727235) Neck sprain and strain (847.0) Active confirmed Problem Pre-operative evaluation (877493677) Unspecified pre-operative examination (V72.84) Active confirmed Problem Nondependent alcohol abuse (676061583) Nondependent alcohol abuse, 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) Active confirmed Problem Tobacco user (169894269) Nondependent tobacco use disorder (305.1) Active confirmed Problem Counseling for sexually transmitted disease (080764164) Counseling on other sexually transmitted diseases (V65.45) Active confirmed Problem Mixed hyperlipidemia (504077132) Mixed hyperlipidemia (E78.2) Active confirmed Problem 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, 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 Problem Hypokalemia (09211261) Hypokalemia (E87.6) Active confirmed Problem Essential hypertension (89421811) Essential (primary) hypertension (I10) Active confirmed Problem Backache (175012567) Dorsalgia, unspecified (M54.9) Active confirmed Problem Hydronephrosis (66014097) Unspecified hydronephrosis (N13.30) Active confirmed Problem Palpitations (02591100) Palpitations (R00.2) Active confirmed Problem Edema (59014062) Edema, unspecified (R60.9) Active confirmed Problem Impaired fasting glucose (675197950) Impaired fasting glucose (R73.01) Active confirmed Problem Abnormal results of kidney function studies (062222962) Abnormal results of kidney function studies (R94.4) Active confirmed Problem Adult health examination (626835926) Encounter for general adult medical examination without abnormal findings (Z00.00) Active confirmed Problem Pre-procedure evaluation check (356011205) Encounter for other preprocedural examination (Z01.818) Active confirmed Problem Body mass index 25-29 - overweight (406374706) Body mass index (BMI) 28.0-28.9, adult (Z68.28) Active confirmed Problem BMI 25-29 - overweight (095605032) Body mass index (BMI) 29.0-29.9, adult (Z68.29) Active confirmed Problem Body mass index 30+ - obesity (797338773) Body mass index (BMI) 30.0-30.9, adult (Z68.30) [...] (EKG) 01/09/2016 Urinalysis, Complete 05/31/2015 Urinalysis, Complete 11/15/2014 Urinalysis, Complete 10/11/2015 Urinalysis, Complete 11/09/2011 Urinalysis, Complete 08/11/2012 Urinalysis, Complete 11/03/2012 Urinalysis, Complete 12/26/2012 Urinalysis, Complete 02/24/2013 Urinalysis, Complete 11/17/2013 Urinalysis, Complete 03/29/2014 TSH 03/29/2014 TSH 11/17/2013 TSH 02/24/2013 TSH 12/26/2012 TSH 11/03/2012 TSH 11/09/2011 TSH 08/11/2012 TSH 09/30/2019 TSH 03/14/2021 TSH 10/11/2015 TSH 03/27/2016 TSH 02/03/2019 TSH 11/20/2016 TSH 03/01/2017 TSH 07/08/2018 TSH 10/28/2018 TSH 06/04/2017 TSH 03/25/2018 TSH 10/08/2017 TSH 11/15/2014 TSH 05/31/2015 TSH 11/15/2020 TSH 02/08/2020 TSH 08/17/2020 CBC With Differential/Platelet 9 CBC With Differential/Platelet 6 CBC With Differential/Platelet 5 CBC With Differential/Platelet 2 CBC With Differential/Platelet 3 CBC With Differential/Platelet 3 CBC With Differential/Platelet 4 CBC With Differential/Platelet 4 CBC With Differential/Platelet 4 Lipid Panel 03/29/2014 Lipid Panel 12/26/2012 Lipid Panel 10/11/2015 Comp. Metabolic Panel (14) 11/20/2016 Comp. Metabolic Panel (14) 03/01/2017 Comp. Metabolic Panel (14) 06/04/2017 Comp. Metabolic Panel (14) 02/03/2019 Comp. Metabolic Panel (14) 03/27/2016 Comp. Metabolic Panel (14) 10/11/2015 Comp. Metabolic Panel (14) 10/08/2017 Comp. Metabolic Panel (14) 03/25/2018 Comp. Metabolic Panel (14) 10/28/2018 Comp. Metabolic Panel (14) 07/08/2018 Comp. Metabolic Panel (14) 02/24/2013 Comp. Metabolic Panel (14) 11/17/2013 Comp. Metabolic Panel (14) 03/29/2014 Comp. Metabolic Panel (14) 11/03/2012 Comp. Metabolic Panel (14) 12/26/2012 Comp. Metabolic Panel (14) 08/11/2012 Comp. Metabolic Panel (14) 11/09/2011 Comp. Metabolic Panel (14) 03/14/2021 Comp. Metabolic Panel (14) 09/30/2019 Comp. Metabolic Panel (14) 11/15/2014 Comp. Metabolic Panel (14) 02/08/2020 Comp. Metabolic Panel (14) 11/15/2020 Comp. Metabolic Panel (14) 08/17/2020 Comp. Metabolic Panel (14) 05/31/2015 Lipid Profile 05/31/2015 Lipid Profile 08/17/2020 Lipid Profile 11/15/2020 Lipid Profile 02/08/2020 Lipid Profile 11/15/2014 Lipid Profile 09/30/2019 Lipid Profile 03/14/2021 Lipid Profile 11/09/2011 Lipid Profile 08/11/2012 Lipid Profile 11/03/2012 Lipid Profile 11/17/2013 Lipid Profile 02/24/2013 Lipid Profile 07/08/2018 Lipid Profile 10/28/2018 Lipid Profile 06/04/2017 Lipid Profile 03/25/2018 Lipid Profile 10/08/2017 Lipid Profile 03/27/2016 Lipid Profile 02/03/2019 Lipid Profile 03/01/2017 Lipid Profile 11/20/2016 Carotid Duplex 12/16/2018 X ray : LS Spine 07/26/2015 X ray : LS Spine 06/19/2013 X ray : LS Spine 08/11/2012 PSA, total 08/11/2012 PSA, total 11/03/2012 PSA, total 12/26/2012 PSA, total 11/09/2011 PSA, total 09/30/2019 PSA, total 03/14/2021 PSA, total 02/24/2013 PSA, total 11/17/2013 PSA, total 06/04/2017 PSA, total 02/03/2019 PSA, total 03/25/2018 PSA, total 07/08/2018 PSA, total 10/28/2018 PSA, total 11/15/2014 PSA, total 02/08/2020 PSA, total 08/17/2020 PSA, total 05/31/2015 INFLUENZA 12/13/2015 MRI : Cervical without Contrast 09/16/19 13 Ultrasound : Abd/Aorta Comp 12/16/2018 Ultrasound : Kidneys, bilateral with dop pler 11/20/2016 X ray : Toe 09/24/2014 HSV 2 IGG HERPESELECT AB 06/23/2015 HSV 2 IGG HERPESELECT AB 05/31/2015 BASIC METAB PANEL 12/28/2015 BASIC METAB PANEL 01/11/2016 BASIC METAB PANEL 03/04/2014 BASIC METAB PANEL 06/29/2014 BASIC METAB PANEL 12/10/2017 BASIC METAB PANEL 12/13/2015 BASIC METAB PANEL 05/05/2018 BASIC METAB PANEL 01/11/2014 BASIC METAB PANEL 06/21/2014 BASIC METAB PANEL 06/19/2013 BASIC METAB PANEL 12/19/2017 BASIC METAB PANEL 05/09/2018 COMP METAB PANEL 11/07/2017 COMP METAB PANEL 08/14/2018 COMP METAB PANEL 04/07/2014 COMP METAB PANEL 01/04/2014 COMP METAB PANEL 12/09/2014 COMP METAB PANEL 03/23/2015 COMP METAB PANEL 06/23/2015 COMP METAB PANEL 01/20/2016 COMP METAB PANEL 11/23/2015 COMP METAB PANEL 05/29/2016 COMP METAB PANEL 12/13/2016 COMP METAB PANEL 07/25/2017 COMP METAB PANEL 03/05/2013 COMP METAB PANEL 11/24/2012 COMP METAB PANEL 08/18/2012 COMP METAB PANEL 05/26/2018 HEPATITIS B SURFACE AB,QL 05/31/2015 HEPATITIS B SURFACE AB,QL 06/23/2015 MAGNESIUM 05/26/2018 MAGNESIUM 02/08/2020 MAGNESIUM 09/30/2019 MAGNESIUM 05/09/2018 PROTHROMBIN TIME W/ INR 05/27/2018 PSA,TOTAL 08/14/2018 PSA,TOTAL 05/14/2018 PSA,TOTAL 04/23/2018 PSA,TOTAL 07/25/2017 PSA,TOTAL 08/18/2012 PSA,TOTAL 11/24/2012 PSA,TOTAL 03/05/2013 PSA,TOTAL 06/23/2015 PSA,TOTAL 01/20/2016 PSA,TOTAL 12/09/2014 PSA,TOTAL 01/04/2014 TSH 04/07/2014 TSH 01/04/2014 TSH 12/09/2014 TSH 03/23/2015 TSH 06/23/2015 TSH 05/29/2016 TSH 07/25/2017 TSH 12/13/2016 TSH 11/23/2015 TSH 01/20/2016 TSH 03/05/2013 TSH 11/24/2012 TSH 08/18/2012 TSH 11/07/2017 TSH 04/23/2018 TSH 05/14/2018 TSH 08/14/2018 URINALYSIS,COMPLETE 08/14/2018 URINALYSIS,COMPLETE 05/14/2018 URINALYSIS,COMPLETE 11/07/2017 URINALYSIS,COMPLETE 04/23/2018 URINALYSIS,COMPLETE 07/25/2017 URINALYSIS,COMPLETE 08/18/2012 URINALYSIS,COMPLETE 11/15/2020 URINALYSIS,COMPLETE 02/08/2020 URINALYSIS,COMPLETE 08/17/2020 URINALYSIS,COMPLETE 03/05/2013 URINALYSIS,COMPLETE 11/24/2012 URINALYSIS,COMPLETE 05/29/2016 URINALYSIS,COMPLETE 12/13/2016 URINALYSIS,COMPLETE 11/23/2015 URINALYSIS,COMPLETE 06/23/2015 URINALYSIS,COMPLETE 12/09/2014 URINALYSIS,COMPLETE 01/04/2014 URINALYSIS,COMPLETE 04/07/2014 URINALYSIS,COMPLETE 09/30/2019 URINALYSIS,COMPLETE 03/14/2021 URINALYSIS,COMPLETE 06/19/2013 URINALYSIS,COMPLETE 07/08/2018 URINALYSIS,COMPLETE 10/28/2018 URINALYSIS,COMPLETE 03/25/2018 URINALYSIS,COMPLETE 10/08/2017 URINALYSIS,COMPLETE 11/20/2016 URINALYSIS,COMPLETE 02/03/2019 URINALYSIS,COMPLETE 03/27/2016 URINALYSIS,COMPLETE 06/04/2017 URINALYSIS,COMPLETE 03/01/2017 CBC (INCLUDES DIFF/PLT) 10/11/2015 CBC (INCLUDES DIFF/PLT) 12/26/2012 CBC (INCLUDES DIFF/PLT) 03/29/2014 CBC (INCLUDES DIFF/PLT) 04/07/2014 CBC (INCLUDES DIFF/PLT) 01/04/2014 CBC (INCLUDES DIFF/PLT) 12/09/2014 CBC (INCLUDES DIFF/PLT) 06/23/2015 CBC (INCLUDES DIFF/PLT) 03/23/2015 CBC (INCLUDES DIFF/PLT) 05/29/2016 CBC (INCLUDES DIFF/PLT) 12/13/2016 CBC (INCLUDES DIFF/PLT) 07/25/2017 CBC (INCLUDES DIFF/PLT) 01/20/2016 CBC (INCLUDES DIFF/PLT) 11/23/2015 CBC (INCLUDES DIFF/PLT) 03/05/2013 CBC (INCLUDES DIFF/PLT) 11/24/2012 CBC (INCLUDES DIFF/PLT) 08/18/2012 CBC (INCLUDES DIFF/PLT) 11/07/2017 CBC (INCLUDES DIFF/PLT) 04/23/2018 CBC (INCLUDES DIFF/PLT) 05/14/2018 CBC (INCLUDES DIFF/PLT) 05/27/2018 CBC (INCLUDES DIFF/PLT) 08/14/2018 HEMOGLOBIN A1C 12/19/2017 HEMOGLOBIN A1C 11/23/2015 HEMOGLOBIN A1C 04/07/2014 HEMOGLOBIN A1C 06/29/2014 HEMOGLOBIN A1C 06/21/2014 HEMOGLOBIN A1C 03/29/2014 HEMOGLOBIN A1C 12/26/2012 HEMOGLOBIN A1C 09/30/2019 HEMOGLOBIN A1C 03/17/2019 HEMOGLOBIN A1C 10/11/2015 HEMOGLOBIN A1C 12/10/2017 MICROSCOPIC EXAM,URINE 03/23/2015 MICROALBUMIN,RAND U(W/CR) 04/07/2014 MICROALBUMIN,RAND U(W/CR) 11/23/2015 MICROALBUMIN,RAND U(W/CR) 10/11/2015 MICROALBUMIN,RAND U(W/CR) 12/26/2012 MICROALBUMIN,RAND U(W/CR) 03/29/2014 HEPATITIS C AB 06/23/2015 HEPATITIS C AB [...] LIPID PANEL CLARIFICATION 11/24/2012 LIPID PANEL CLARIFICATION 11/07/2017 LIPID PANEL CLARIFICATION 04/23/2018 LIPID PANEL CLARIFICATION 08/14/2018 LIPID PANEL CLARIFICATION 05/14/2018 COMP METABOLIC PANEL CLARIFICATION 05/14 COMP METABOLIC PANEL CLARIFICATION 04/23 COMPLETE BLOOD COUNT 11/15/2020 COMPLETE BLOOD COUNT 08/17/2020 COMPLETE BLOOD COUNT 02/08/2020 COMPLETE BLOOD COUNT 03/14/2021 COMPLETE BLOOD COUNT 03/27/2016 COMPLETE BLOOD COUNT 09/30/2019 COMPLETE BLOOD COUNT 11/20/2016 COMPLETE BLOOD COUNT 06/04/2017 COMPLETE BLOOD COUNT 03/01/2017 COMPLETE BLOOD COUNT 10/08/2017 COMPLETE BLOOD COUNT [...] W/INR AND PTT 05/26/2018 SARS COV 2(COVID19)IGG,IA 09/30/2019 SARS COV 2(COVID19)IGG,IA 08/17/2020 2019 NOVEL CORONAVIRUS (COVID-19) RNA, Q L RT-PCR 08/17/2020 Insurance Providers Payer Name Payer Address Payer Phone Subscriber Number Group Number Insured Name Patient Relationship to Insured Coverage Start Date Coverage End Date [facility] [address] [place] [address] [phone] [id number] Max Cortes Self - patient is the insured Medical (General) History Medical History History ICD Code HTN microhematuria HERPES 2 in blood gout colonoscopy 2020 Repeat 5 yrs Surgical History Surgery Date(Month/Year) Rt inguinal hernia 2009 Hospitalization History Reason Date(Month/Year) cardiac cath 06/18/13 cardiac cath WNL 10/2015
== END 2024-08-13 10:43 | disposition home or self-care (01) ==
LOC: HO.HMCH 10:10
PROVIDERS: PCP Physician Assistant; Visit Provider Physician Assistant
DX: E78.2 Mixed hyperlipidemia (principal); I10 Essential (primary) hypertension; R80.8 Other proteinuria; N13.39 Other hydronephrosis

== ENCOUNTER → 2024-08-13 10:10 | Outpatient (BNVA) | payer MEDICARE, MEDICAID, SELFPAY | PROVIDERS: PCP Physician Assistant; Visit Provider Physician Assistant | DX: I10 Essential (primary) hypertension (principal); E78.2 Mixed hyperlipidemia; N40.0 Benign prostatic hyperplasia without lower urinary tract symptoms; I42.9 Cardiomyopathy, unspecified; R80.8 Other proteinuria; N13.39 Other hydronephrosis | CPT/HCPCS: 99212 ==

== ENCOUNTER 2024-08-27 08:33 | Outpatient (AMB) | payer MEDICARE, MEDICAID, SELFPAY ==
--- OUTSIDE RECORDS SUMMARY | 2024-08-27 08:43 | XMS_ITS | Patient Health Record ---
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 Phone [facility] [...] Status W/U Status Risk Notes Problem Overweight (318539994) Overweight (278.02) Active confirmed Problem Benign essential hypertension (5760268) Essential hypertension, benign (401.1) Active confirmed Problem Sciatica (74342009) Sciatica (724.3) Active confirmed Problem Insomnia (059767978) Insomnia, unspecified (780.52) Active confirmed Problem Throat pain (175746289) Throat pain (784.1) Active confirmed Problem Neck sprain (052316115) Neck sprain and strain (847.0) Active confirmed Problem Pre-operative evaluation (267832587) Unspecified pre-operative examination (V72.84) Active confirmed Problem Nondependent alcohol abuse (137530953) Nondependent alcohol abuse, 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) Active confirmed Problem Tobacco user (829753590) Nondependent tobacco use disorder (305.1) Active confirmed Problem Counseling for sexually transmitted disease (345416520) Counseling on other sexually transmitted diseases (V65.45) Active confirmed Problem Mixed hyperlipidemia (374625952) Mixed hyperlipidemia (E78.2) Active confirmed Problem 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, 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 Problem Hypokalemia (05120570) Hypokalemia (E87.6) Active confirmed Problem Essential hypertension (14666506) Essential (primary) hypertension (I10) Active confirmed Problem Backache (780900019) Dorsalgia, unspecified (M54.9) Active confirmed Problem Hydronephrosis (05675967) Unspecified hydronephrosis (N13.30) Active confirmed Problem Palpitations (59148050) Palpitations (R00.2) Active confirmed Problem Edema (68695838) Edema, unspecified (R60.9) Active confirmed Problem Impaired fasting glucose (751393419) Impaired fasting glucose (R73.01) Active confirmed Problem Abnormal results of kidney function studies (460524106) Abnormal results of kidney function studies (R94.4) Active confirmed Problem Adult health examination (274794792) Encounter for general adult medical examination without abnormal findings (Z00.00) Active confirmed Problem Pre-procedure evaluation check (460707123) Encounter for other preprocedural examination (Z01.818) Active confirmed Problem Body mass index 25-29 - overweight (956276150) Body mass index (BMI) 28.0-28.9, adult (Z68.28) Active confirmed Problem BMI 25-29 - overweight (691018411) Body mass index (BMI) 29.0-29.9, adult (Z68.29) Active confirmed Problem Body mass index 30+ - obesity (401933793) Body mass index (BMI) 30.0-30.9, adult (Z68.30) [...] Complete 05/31/2015 Urinalysis, Complete 11/15/2014 Urinalysis, Complete 03/29/2014 Urinalysis, Complete 10/11/2015 Urinalysis, Complete 11/03/2012 Urinalysis, Complete 12/26/2012 Urinalysis, Complete 02/24/2013 Urinalysis, Complete 11/17/2013 Urinalysis, Complete 11/09/2011 Urinalysis, Complete 08/11/2012 TSH 11/09/2011 TSH 08/11/2012 TSH 03/14/2021 TSH 02/03/2019 TSH 09/30/2019 TSH 11/17/2013 TSH 02/24/2013 TSH 12/26/2012 TSH 11/03/2012 TSH 10/11/2015 TSH 03/27/2016 TSH 10/28/2018 TSH 06/04/2017 TSH 03/01/2017 TSH 11/20/2016 TSH 07/08/2018 TSH 03/25/2018 TSH 10/08/2017 TSH 03/29/2014 TSH 02/08/2020 TSH 08/17/2020 TSH 11/15/2020 TSH 11/15/2014 TSH 05/31/2015 CBC With Differential/Platelet 6 CBC With Differential/Platelet 5 CBC With Differential/Platelet 9 CBC With Differential/Platelet 3 CBC With Differential/Platelet 4 CBC With Differential/Platelet 4 CBC With Differential/Platelet 4 CBC With Differential/Platelet 2 CBC With Differential/Platelet 3 Lipid Panel 12/26/2012 Lipid Panel 10/11/2015 Lipid Panel 03/29/2014 Comp. Metabolic Panel (14) 03/29/2014 Comp. Metabolic Panel (14) 11/15/2020 Comp. Metabolic Panel (14) 02/08/2020 Comp. Metabolic Panel (14) 08/17/2020 Comp. Metabolic Panel (14) 11/15/2014 Comp. Metabolic Panel (14) 05/31/2015 Comp. Metabolic Panel (14) 03/27/2016 Comp. Metabolic Panel (14) 10/11/2015 Comp. Metabolic Panel (14) 11/20/2016 Comp. [...] Profile 11/17/2013 Lipid Profile 02/24/2013 Lipid Profile 10/28/2018 Lipid Profile 07/08/2018 Lipid Profile 03/25/2018 Lipid Profile 10/08/2017 Lipid Profile 06/04/2017 Lipid Profile 03/01/2017 Lipid Profile 11/20/2016 Lipid Profile 03/27/2016 Lipid Profile 05/31/2015 Lipid Profile 11/15/2014 Lipid Profile 08/17/2020 Lipid Profile 02/08/2020 Lipid Profile 11/15/2020 Carotid Duplex 12/16/2018 X ray : LS Spine 07/26/2015 X ray : LS Spine 06/19/2013 X ray : LS Spine 08/11/2012 PSA, total 08/11/2012 PSA, total 11/09/2011 PSA, total 03/14/2021 PSA, total 09/30/2019 PSA, total 11/17/2013 PSA, total 11/03/2012 PSA, total 12/26/2012 PSA, total 02/24/2013 PSA, total 03/25/2018 PSA, total 07/08/2018 PSA, total 02/03/2019 PSA, total 06/04/2017 PSA, total 10/28/2018 PSA, total 02/08/2020 PSA, total 08/17/2020 PSA, total 11/15/2014 PSA, total 05/31/2015 INFLUENZA 12/13/2015 MRI : [...] COMP METAB PANEL 05/26/2018 COMP METAB PANEL 03/05/2013 COMP METAB PANEL 08/18/2012 COMP METAB PANEL 11/24/2012 HEPATITIS B SURFACE AB,QL 05/31/2015 HEPATITIS B SURFACE AB,QL 06/23/2015 MAGNESIUM 05/26/2018 MAGNESIUM 02/08/2020 MAGNESIUM 09/30/2019 MAGNESIUM 05/09/2018 PROTHROMBIN TIME W/ INR 05/27/2018 PSA,TOTAL 05/14/2018 PSA,TOTAL 04/23/2018 PSA,TOTAL 08/14/2018 PSA,TOTAL 07/25/2017 PSA,TOTAL 11/24/2012 PSA,TOTAL 08/18/2012 PSA,TOTAL 06/23/2015 PSA,TOTAL 01/20/2016 PSA,TOTAL 12/09/2014 PSA,TOTAL 01/04/2014 PSA,TOTAL 03/05/2013 TSH 04/07/2014 TSH 01/04/2014 TSH 12/09/2014 TSH 03/23/2015 TSH 06/23/2015 TSH 05/29/2016 TSH 01/20/2016 TSH 07/25/2017 TSH 12/13/2016 TSH 11/23/2015 TSH 08/18/2012 TSH 03/05/2013 TSH 11/24/2012 TSH 11/07/2017 TSH 04/23/2018 TSH 08/14/2018 TSH 05/14/2018 URINALYSIS,COMPLETE 05/14/2018 URINALYSIS,COMPLETE 08/14/2018 URINALYSIS,COMPLETE 04/23/2018 URINALYSIS,COMPLETE 11/07/2017 URINALYSIS,COMPLETE 12/13/2016 URINALYSIS,COMPLETE 07/25/2017 URINALYSIS,COMPLETE 03/05/2013 URINALYSIS,COMPLETE 11/24/2012 URINALYSIS,COMPLETE 08/18/2012 URINALYSIS,COMPLETE 02/08/2020 URINALYSIS,COMPLETE 11/15/2020 URINALYSIS,COMPLETE 08/17/2020 URINALYSIS,COMPLETE 11/23/2015 URINALYSIS,COMPLETE 06/23/2015 URINALYSIS,COMPLETE 05/29/2016 URINALYSIS,COMPLETE 12/09/2014 URINALYSIS,COMPLETE 01/04/2014 URINALYSIS,COMPLETE 04/07/2014 URINALYSIS,COMPLETE 09/30/2019 URINALYSIS,COMPLETE 03/27/2016 URINALYSIS,COMPLETE 02/03/2019 URINALYSIS,COMPLETE 03/14/2021 URINALYSIS,COMPLETE 06/19/2013 URINALYSIS,COMPLETE 03/25/2018 URINALYSIS,COMPLETE 10/08/2017 URINALYSIS,COMPLETE 07/08/2018 URINALYSIS,COMPLETE 11/20/2016 URINALYSIS,COMPLETE 06/04/2017 URINALYSIS,COMPLETE 10/28/2018 URINALYSIS,COMPLETE 03/01/2017 CBC (INCLUDES DIFF/PLT) 10/11/2015 CBC (INCLUDES DIFF/PLT) 12/26/2012 CBC (INCLUDES DIFF/PLT) 04/07/2014 CBC (INCLUDES DIFF/PLT) 01/04/2014 CBC (INCLUDES DIFF/PLT) 12/09/2014 CBC (INCLUDES DIFF/PLT) 06/23/2015 CBC (INCLUDES DIFF/PLT) 03/23/2015 CBC (INCLUDES DIFF/PLT) 05/29/2016 CBC (INCLUDES DIFF/PLT) 01/20/2016 CBC (INCLUDES DIFF/PLT) 12/13/2016 CBC (INCLUDES DIFF/PLT) 07/25/2017 CBC (INCLUDES DIFF/PLT) 11/23/2015 CBC (INCLUDES DIFF/PLT) 03/29/2014 CBC (INCLUDES DIFF/PLT) 08/18/2012 CBC (INCLUDES DIFF/PLT) 03/05/2013 CBC (INCLUDES DIFF/PLT) 11/24/2012 CBC (INCLUDES DIFF/PLT) 11/07/2017 CBC (INCLUDES DIFF/PLT) 04/23/2018 CBC (INCLUDES DIFF/PLT) 08/14/2018 CBC (INCLUDES DIFF/PLT) 05/27/2018 CBC (INCLUDES DIFF/PLT) 05/14/2018 HEMOGLOBIN A1C 12/19/2017 HEMOGLOBIN A1C 06/21/2014 HEMOGLOBIN A1C 03/29/2014 HEMOGLOBIN A1C 11/23/2015 HEMOGLOBIN A1C 04/07/2014 HEMOGLOBIN A1C 06/29/2014 HEMOGLOBIN A1C 12/26/2012 HEMOGLOBIN A1C 03/17/2019 HEMOGLOBIN [...] LIPID PANEL CLARIFICATION 12/13/2016 LIPID PANEL CLARIFICATION 01/04/2014 LIPID PANEL CLARIFICATION 06/23/2015 LIPID PANEL CLARIFICATION 12/09/2014 LIPID PANEL CLARIFICATION 03/23/2015 LIPID PANEL CLARIFICATION 08/18/2012 LIPID PANEL CLARIFICATION 11/24/2012 LIPID PANEL CLARIFICATION 03/05/2013 LIPID PANEL CLARIFICATION 04/23/2018 LIPID PANEL CLARIFICATION 11/07/2017 LIPID PANEL CLARIFICATION 05/14/2018 LIPID PANEL CLARIFICATION 08/14/2018 COMP METABOLIC PANEL CLARIFICATION 05/14 COMP METABOLIC PANEL CLARIFICATION 04/23 COMPLETE BLOOD COUNT 02/08/2020 COMPLETE BLOOD COUNT 11/15/2020 COMPLETE BLOOD COUNT 08/17/2020 COMPLETE BLOOD COUNT 03/14/2021 COMPLETE BLOOD COUNT 09/30/2019 COMPLETE BLOOD COUNT 03/27/2016 COMPLETE BLOOD COUNT 11/20/2016 COMPLETE BLOOD COUNT 06/04/2017 COMPLETE BLOOD COUNT 03/01/2017 COMPLETE BLOOD COUNT 03/25/2018 COMPLETE BLOOD COUNT 10/08/2017 COMPLETE BLOOD COUNT 07/08/2018 COMPLETE BLOOD COUNT 02/03/2019 COMPLETE BLOOD COUNT [...] Insured Coverage Start Date Coverage End Date [facility] [address] [place] [address] [phone] [id number] Max Cortes Self - patient is the insured Medical (General) History Medical History History ICD Code HTN microhematuria HERPES 2 in blood gout colonoscopy 2020 Repeat 5 yrs Surgical History Surgery Date(Month/Year) Rt inguinal hernia 2009 Hospitalization History Reason Date(Month/Year) cardiac cath 06/18/13 cardiac cath WNL 10/2015
--- OUTSIDE RECORDS SUMMARY | 2024-08-27 08:44 | XMS_ITS | Data Portability ---
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 Audiometric testing reviewed by Dr. Downs. [email or web address] Not available 01/21/2024 12:16:54 Plan of Treatment [...] Time Sensorineural hearing loss of bilateral ears [id number] Active 2023 ANJALI JACINTO 100 [facility], [address], [place], [address], [facility] 10:53:01 Problem Notes None recorded. Procedures Surgical History Date Name Laterality Status Provider Name and Address Organization Details Recorded Time 01/21/2024 Comp Audio with Tymps - 42202 & 24151 completed FAYE CEEPUMA, AUD 100 [facility] [address], [place], [address], [facility] - [facility] 01/21/2024 10:52:56 Imaging Results None recorded. Procedure Notes None recorded. Medical Equipment None [...] Updated DateTime 01/21/2024 167.64 cm 28.7 kg/m2 39568.44 g Arlene Lemon [place] - [facility] 01/21/2024 11:09:45 Social History None recorded. Functional Status None recorded. Mental Status None recorded. Family History Nothing Reported. Medical History Condition Response Hypertension Y Past Encounters Encounter ID Performer Location Encounter Start Date Encounter Closed Date Diagnosis/Indication Diagnosis SNOMED-CT Code Diagnosis ICD10 Code Diagnosis Note [id number] LAVERNE MACKENZIE PA-C [facility] [address] [address] 01/21/2024 10:27:17 01/21/2024 11:19:34 Sensorineural hearing loss of bilateral ears [id number] H90.3 Right Ear:Normal hearing through 2K Hz [...] Recorded Advance Directives Directive None Recorded Payers Insurance Date Sequence Insurance Name Policy Number Policy Baires Covered Member ID Baires Member ID Guarantor Name 01/19/2024 1 [employer] (MEDICARE REPLACEMENT/ ADVANTAGE - HMO) Max Keller [id number] Max Keller Notes Date Note Type Note [...] hearing in her 70s. NIHARIKA DOWNS MD [address] [place] [address], [place], [address], [facility] - [facility] 01/22/2024 09:40:22
--- NOTE | 2024-08-27 08:55 | A.OFFVIS_ITS ---
Intake Visit Reasons: 3M PSA Intake Note: Patient presents today for follow up on: nocturia, bph, psa and imaging results Renal Ultrasound: 06/23/24 CT Scan Completed: 07/21/24 PSA: 1.31 Urology Medications: tamsulosin Blood Thinner: aspirin PVR: 0ml's Conflict Resolution Professional Required: No Accompanied by: Self / Same As Patient Allergies No Known Allergies Allergy (Verified 08/27/24 09:35) Medication List - Last Reconciled 08/27/24 by NOA Booker- aspirin 81 mg PO DAILY 90 days atenolol 100 mg PO BEDTIME 90 days atorvastatin 10 mg PO DAILY 90 days colchicine 0.3 mg (1/2 x 0.6 mg) PO DAILY PRN 14 days loratadine 5 mg PO DAILY 90 days melatonin 3 mg PO BEDTIME PRN 30 days nifedipine ER 30 mg PO DAILY polymyxin B sulf-trimethoprim 10,000 unit- 1 mg/mL 1 drp ophthalmic (eye) QID P RN 7 days tamsulosin 0.4 mg PO BEDTIME 90 days HPI Comments Details: Max is a very pleasant 79-year-old male patient of Dr. Macedo. He has a past medical history of BPH, Gout, hyperlipidemia, and hypertension. He presents to the office today for follow-up of his lower urinary tract symptoms. In discussion with the patient today reports to be doing and feeling well. He reports compliance with Flomax as prescribed. Of note, during last office visit approximately 3 months ago a retroperitoneal ultrasound and PSA were ordered for further assessment evaluation. These results were reviewed and communicated with the patient today. Retroperitoneal ultrasound 07/12 noted multiple bilateral renal cysts. Increased renal echotexture bilaterally, suggestive of chronic medical renal disease. Mild right hydronephrosis. Mild fullness of the left renal pelvis additional imaging with CT is recommended per radiology report. It appears CT has been ordered and performed. These results were also communicated with the patient today. 08/12 CT moderate bilateral hydronephrosis with likely peripelvic cysts also present. No cause for obstruction identified. Ureters are contracted bilaterally. No renal or ureteral calculus bilaterally. He does continue to follow-up with nephrology for proteinuria. He does endorse nocturia 4-5 times per night however does not feel this is bothersome as he feels these symptoms have been present for many years. We did discussed obtaining sleep study for further assessment evaluation however patient declines at this time. In office urinalysis results reviewed with the patient today. PVR 0 mL. Recent PSA results reviewed with the patient today as noted and trended below: 12/10 1.2, 06/11 1.1, 06/12 1.3 We discussed potential causes of hydronephrosis and further workup to include nuclear renal scan. He currently denies any bothersome urinary issues or concerns at this time. He denies urinary urgency, urinary frequency, incontinence, hematuria, dysuria, foul smelling urine, changes to urinary stream, flank pain, fever, and or chills. Previous urine cytology results were reviewed: Cytology 06/12: Negative for high-grade urothelial carcinoma. BUN: 12/10 15, 06/11 17, 07/11 18, 10/11 17, 06/12 15, 07/12 16 Creatinine: 12/10 0.99, 06/11 1.17, 07/11 1.10, 10/11 1.02, 06/12 1.03, 07/12 0.83 PFSH Medical History History of fractured rib Gout flare Surgical History Hernia Family History Mother Heart attack HTN (hypertension) Father HTN (hypertension) Heart attack Sister DM2 (diabetes mellitus, type 2) Social History Housing: House Alcohol intake: current Alcohol intake frequency: holidays/special occasions only Alcohol type: beer Patient Tobacco Use Status: Former Tobacco user Tobacco use type: Cigarette e-Cigarette/Vaping Use: Never Used service: No 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 Cognitive needs: No Hearing needs: No Vision needs: No Review of Systems Const Reports no additional complaints Eyes Reports no additional complaints ENT Reports no additional complaints Card Reports as per HPI Resp Reports no additional complaints GI Reports no additional complaints Reports as per HPI Musc Reports no additional complaints Neuro Reports no additional complaints Psych Reports no additional complaints Endo Reports no additional complaints Dalton/Lymph Reports no additional complaints Aller/Immun Reports no additional complaints Physical Exam Const General: cooperative, healthy appearing, comfortable, no acute distress, well developed, alert and awake Orientation/consciousness: patient oriented x3 Limitations: no limitations HEENT Head: Yes normal to inspection, Yes normocephalic and Yes atraumatic Ears: hearing grossly normal bilaterally Eyes General: appearance normal, both eyes and all related structures Neck Neck: Yes normal visual inspection and Yes trachea midline Chest Chest palpation & inspection: normal inspection of the chest Resp Effort & Inspection: normal respiratory effort and able to speak in complete sentences Cardio Rate: regular rate GI Inspection: Yes normal to inspection General: Yes no CVA tenderness Back/Spine/Pelvis Back: no CVA tenderness Skin General skin exam: no rashes or lesions noted Neuro General: patient oriented x3 Extrem General: Yes normal to inspection Psych Appearance: grossly normal and well kempt Mental Status: mental status grossly normal Speech and movement: Normal speech and movement present and Clear speech present Affect: normal affect Attitude: cooperative Thought process: Normal thought process present Thought content: Normal thought content present Insight: Fair insight present (Psych) Judgement: Fair judgement present (Psych) Office Procedures Post Void Residual Post Residual Void Post Void Residual (PVR): 0 [id number] Void Residual by ultrasound Results AMB Urinalysis, Automated UA Leukoctes 0 Lilly/uL Last Edit by ORTEGA Johnston on 08/27/24 09:05 UA Nitrite Last Edit by ORTEGA Johnston on 08/27/24 09:05 UA Urobilinogen 0.2 mg/dL Last Edit by ORTEGA Johnston on 08/27/24 09:0 5 UA Protein 100 mg/dL Last Edit by ORTEGA Johnston on 08/27/24 09:05 UA pH 5.5 Last Edit by ORTEGA Johnston on 08/27/24 09:05 UA Blood 10 Kodi/uL Last Edit by ORTEGA Johnston on 08/27/24 09:05 UA Specific [place] 1.020 Last Edit by Ruysaigelauren Krishnamurthy [facility] on 08/27/24 09: 05 UA Ketone Last Edit by RuysaigeORTEGA Singh on 08/27/24 09:05 UA Bilirubin 0 mg/dL Last Edit by Ruysonal Yessy, [facility] on 08/27/24 09:05 UA Glucose 0 mg/dL Last Edit by Felix Krishnamurthy [facility] on 08/27/24 09:05 Results Reviewed Results Reviewed: Laboratory Last Values Urine pH (Auto) 5.5 08/27/24 09:04 Specific [place] (Auto) 1.020 08/27/24 09:04 Urine Protein (Auto) 100 mg/dL 08/27/24 09:04 Glucose (UA)(Auto) 0 mg/dL 08/27/24 09:04 Urine Blood (Auto) 10 [place]/uL 08/27/24 09:04 Urine Bilirubin (Auto) 0 mg/dL 08/27/24 09:04 Urine Urobilinogen (Auto) 0.2 mg/dL 08/27/24 09:04 Leukocyte Esterase (Auto) 0 Lilly/uL 08/27/24 09:04 Date of Service: 06/23/24 Procedure(s): US renal BI FINDINGS: Right kidney: The right kidney measures 13.1 x 6.5 x 5.9 cm. There is mild increased renal echotexture. There is a 2.6 x 2.0 x 2.7 cm cyst at the upper pole and a 1.3 x 1.3 x 1.2 cm cyst in the interpolar region. There is mild hydronephrosis. No calculi are identified. Left Kidney: The left kidney measures 11.5 x 5.1 x 6.8 cm. There is mild increased renal echotexture. Multiple cysts are noted at the lower pole including a 2.8 x 2.5 x 2.7 cm septated cyst and additional simple cyst measuring 1.9 x 1.6 x 1.9 cm and 2.7 x 2.0 x 2.0 cm. There is fullness of the renal pelvis. No calculi are identified. IMPRESSION: 1. Multiple bilateral renal cysts as described. 2. Increased renal echotexture bilaterally, suggestive of chronic medical renal disease. 2. Mild right hydronephrosis. Mild fullness of the left renal pelvis. Additional imaging with CT may be helpful. Date of Service: 07/21/24 Procedure(s): CT abdomen pelvis wo IV con FINDINGS: Minimal atelectasis along the posterior lower lobes. Small hiatal hernia. Normal gallbladder noncontrast appearance of the liver, spleen, pancreas and adrenal glands are unremarkable. Moderate bilateral hydronephrosis. Likely parapelvic cysts also present. No hydroureter bilaterally. No renal or ureteral calculus bilaterally. Right renal cystic lesion measuring 2.1 cm. Left renal cystic lesion measuring 1.6 cm. No renal or ureteral calculus bilaterally. Normal appendix. Mild colonic stool burden. Mild distal colonic diverticulosis without evidence of diverticulitis. No mesenteric or retroperitoneal lymphadenopathy. Moderate aortoiliac atherosclerotic vascular calcifications. Urinary bladder is unremarkable given degree of distention. No inguinal lymphadenopathy. Small fat containing umbilical hernia. [id number] multilevel spondylosis. No acute fracture or suspicious bone lesion. IMPRESSION: 1. Moderate bilateral hydronephrosis with likely parapelvic cysts also present. No cause for obstruction identified. Ureters are contracted bilaterally. No renal or ureteral calculus bilaterally. Assessment & Plan Assessment & Plan (1) Hydronephrosis: Code(s): N13.30 - Unspecified hydronephrosis Category: Medical Qualifiers: Hydronephrosis type: other Qualified Code(s): N13.39 - Other hydronephrosis Plan In office urinalysis results with the patient today; as noted above. PVR 0 mL. Recent retroperitoneal ultrasound results reviewed the patient today; as noted above. Recent CT results reviewed with the patient today; as noted above. Continue Flomax. We did discussed potential causes of hydronephrosis as well as further workup in risks and benefits of these interventions. Will obtain nuclear renal scan for further assessment evaluation. Will obtain BUN and creatinine. He reports be happy with current voiding parameters. Follow-up in 1-3 months with imaging and labs to be completed prior; or sooner with any issues, concerns, and or questions. Orders: Orders Blood Urea Nitrogen Today R39.15 - Urgency of urination Creatinine Today R39.15 - Urgency of urination AMB Urinalysis Automated Today Z13.9 - Encounter for screening, unspecified AMB Post Void Residual by ultrasound Today N40.1 - Benign prostatic hyperplasia with lower urinary tract symptoms, R35.1 - Nocturia NM renal flow w pharm int Today N13.39 - Other hydronephrosis Patient Instructions: The patient had an opportunity to ask questions regarding the treatment plan. All questions were answered. Physical exam, labs, and imaging were discussed and reviewed in detail. As well as risks, benefits, and discussion of treatment choices. No major barriers to understanding were identified. The patient expressed understanding and agreement with the above treatment plan. The patient was made aware they should contact our office by phone for worsening of their current condition, the appearance of new symptoms, or with any questions or concerns. Compliance is encouraged with any medications and follow up testing that is ordered. It is a privilege to be allowed the opportunity to participate in? your urological care.? Again, if you have any questions or concerns If you have any questions or concerns please do not hesitate to contact me. The office is [phone]. This note is constructed using voice recognition software. While every effort has been made to ensure accuracy hospice team lead errors may have been included. Yours sincerely, KEMAR Booker Coding Level of Care Code Est Pt Level 3 (44991) Complex EM visit Add On G2211 Diagnoses Other hydronephrosis N13.39 Hydronephrosis type: other CPT Codes Post Residual Void - PVR CPT Code: 41664-Zgex Void Residual by ultrasound ([id number])
== END 2024-08-27 09:39 | disposition home or self-care (01) ==
PROVIDERS: PCP Physician Assistant; Visit Provider Nurse Practitioner Family
DX: Z13.9 Encounter for screening, unspecified (principal); N13.39 Other hydronephrosis
CPT/HCPCS: 99213; G2211

== ENCOUNTER → 2024-08-27 08:33 | Outpatient (BNVA) | payer MEDICARE, OTHER, SELFPAY | PROVIDERS: PCP Physician Assistant; Visit Provider Nurse Practitioner Family | DX: N13.39 Other hydronephrosis (principal) | CPT/HCPCS: 51798; 81003; 99212 ==

== ENCOUNTER 2024-10-20 09:34 | Outpatient (REF) | payer MEDICARE, OTHER, SELFPAY ==
--- OUTSIDE RECORDS SUMMARY | 2024-10-20 10:40 | XMS_ITS | Patient Health Record ---
Author Organization [facility] Address [address] [place] [phone] Care Team Providers Care Preparation Supervisor Freezing Name Role Phone [facility] [...] Status W/U Status Risk Notes Problem Overweight (012910729) Overweight (278.02) Active confirmed Problem Benign essential hypertension (8153586) Essential hypertension, benign (401.1) Active confirmed Problem Sciatica (02854686) Sciatica (724.3) Active confirmed Problem Insomnia (399190162) Insomnia, unspecified (780.52) Active confirmed Problem Throat pain (357393737) Throat pain (784.1) Active confirmed Problem Neck sprain (252882205) Neck sprain and strain (847.0) Active confirmed Problem Pre-operative evaluation (720617010) Unspecified pre-operative examination (V72.84) Active confirmed Problem Nondependent alcohol abuse (522633273) Nondependent alcohol abuse, 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) Active confirmed Problem Tobacco user (622328724) Nondependent tobacco use disorder (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) Active confirmed Problem Counseling for sexually transmitted disease (930304375) Counseling on other sexually transmitted diseases (V65.45) Active confirmed Problem Mixed hyperlipidemia (682239991) Mixed hyperlipidemia (E78.2) Active confirmed Problem 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, 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 Problem Hypokalemia (89331658) Hypokalemia (E87.6) Active confirmed Problem Essential hypertension (98758079) Essential (primary) hypertension (I10) Active confirmed Problem Backache (029769624) Dorsalgia, unspecified (M54.9) Active confirmed Problem Hydronephrosis (80125548) Unspecified hydronephrosis (N13.30) Active confirmed Problem Palpitations (60110294) Palpitations (R00.2) Active confirmed Problem Edema (39933120) Edema, unspecified (R60.9) Active confirmed Problem Impaired fasting glucose (543367977) Impaired fasting glucose (R73.01) Active confirmed Problem Abnormal results of kidney function studies (220373282) Abnormal results of kidney function studies (R94.4) Active confirmed Problem Adult health examination (592928398) Encounter for general adult medical examination without abnormal findings (Z00.00) Active confirmed Problem Pre-procedure evaluation check (423705929) Encounter for other preprocedural examination (Z01.818) Active confirmed Problem Body mass index 25-29 - overweight (296192685) Body mass index (BMI) 28.0-28.9, adult (Z68.28) Active confirmed Problem BMI 25-29 - overweight (091994875) Body mass index (BMI) 29.0-29.9, adult (Z68.29) Active confirmed Problem Body mass index 30+ - obesity (152272671) Body mass index (BMI) 30.0-30.9, adult (Z68.30) [...] SARS COV 2(COVID19)IGG,IA 08/17/2020 SARS COV 2(COVID19)IGG,IA 09/30/2019 2019 NOVEL CORONAVIRUS (COVID-19) RNA, Q L RT-PCR 08/17/2020 Insurance Providers Payer Name Payer Address Payer Phone Subscriber Number Group Number Insured Name Patient Relationship to Insured Coverage Start Date Coverage End Date [facility] [address] [place] [address] [id number] Max Cortes Self - patient is the insured Medical (General) History Medical History History ICD Code HTN microhematuria HERPES 2 in blood gout colonoscopy 2020 Repeat 5 yrs Surgical History Surgery Date(Month/Year) Rt inguinal hernia 2009 Hospitalization History Reason Date(Month/Year) cardiac cath 06/18/13 cardiac cath WNL 10/2015
[2024-10-20 10:56] LABS: Anion Gap 8 (12-20); Blood Urea Nitrogen 13 mg/dL (9-16); Calcium 8.4 mg/dL (8.4-10.2); Carbon Dioxide 28 mmol/L (22-29); Chloride 112 mmol/L (96-108); Estimated Glomerular Filt Rate > 60; Potassium 3.9 mmol/L (3.3-5.1); Sodium 144 mmol/L (135-145)
[2024-10-20 13:23] LABS: Protein/Creatinine Ratio, Ur 0.47 (<0.2); Total Protein Urine Random 63 mg/dL (<12)
== END 2024-10-20 09:35 | disposition home or self-care (01) ==
LOC: HO.LAB 09:34
PROVIDERS: PCP Physician Assistant; Visit Provider Internal Medicine Nephrology
DX: N13.39 Other hydronephrosis (principal); R80.8 Other proteinuria
CPT/HCPCS: 36415; 80051; 82310; 82565; 82570; 84156; 84520

== ENCOUNTER 2024-10-21 11:34 | Outpatient (AMB) | payer MEDICARE, SELFPAY ==
--- NOTE | 2024-10-21 12:01 | HO.NEPHOV ---
Vital Signs 10/21/24 12:03 Height 5 ft 6 in Weight 174 lb 8 oz BMI 28.2 BP 140/70 H Blood Pressure Location Rt brachial Position Sitting Pulse 54 Pulse Source Pulse Oximeter Pulse Oximetry (%) 98 Oxygen Delivery Method Room Air Intake Visit Reasons: 3 mo follow up-Conf Director Retirement Required: No Accompanied by: Self / Same As Patient Allergies No Known Allergies Allergy (Verified 10/21/24 12:02) HPI Comments Details: Mr Keller was seen in F/U for proteinuria , hypertension and mild CKD. He is 79 years of age and is in good health. He denies CAD, CVA, CHF, PAD, carotid disease but has hypertension for a long time. 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 According to him his BP is at goal. He is not very strict with low sodium diet but tries to eat healthy. He is not a diabetic. He denies taking excess NSAID's. He is not on ACEI or ARB. He had no edema , hematuria or any specific systemic complaint at the time of this office visit. 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 Cognitive needs: No Hearing needs: No Vision needs: No Review of Systems Const All systems reviewed & are unremarkable except as noted in HPI and below Physical Exam Vital Signs: Last Vital Signs Pulse 54 10/21/24 12:03 BP 140/70 H 10/21/24 12:03 Pulse Ox 98 10/21/24 12:03 Oxygen Delivery Method Room Air 10/21/24 12:03 BMI result Body Mass Index 28.2 Const General: comfortable and no acute distress Orientation/consciousness: patient oriented x3 HEENT Head: Yes normocephalic Mouth: Normal oral and palatal mucosa present Eyes EOM: EOMs intact bilaterally Neck Neck: Yes supple Resp Auscultation: clear to auscultation bilaterally Cardio Jugular venous distension: no JVD Rate: regular rate GI Palpation (GI): Soft to palpation Auscultation: normal bowel sounds General: Yes no CVA tenderness Back/Spine/Pelvis Back: no CVA tenderness Skin General skin exam: no rashes or lesions noted Neuro General: patient oriented x3 and moves all extremities Extrem General: Yes no pedal edema Results Reviewed Nephrology Results: Sodium, (135-145) 144 mmol/L 10/20/24 Potassium, (3.3-5.1) 3.9 mmol/L 10/20/24 Chloride, (96-108) 112 mmol/L H 10/20/24 Carbon Dioxide, (22-29) 28 mmol/L 10/20/24 BUN, (9-16) 13 mg/dL 10/20/24 Creatinine, (0.5-1.4) 1.00 mg/dL 10/20/24 Calcium, (8.4-10.2) 8.4 mg/dL 10/20/24 Urine Creatinine 133.56 mg/dL 10/20/24 Protein/Creatinin Ratio, (<0.2) 0.47 H 10/20/24 Renal US 06/23/24 Assessment & Plan Assessment & Plan (1) HTN (hypertension): Code(s): I10 - Essential (primary) hypertension Category: Medical Qualifiers: Hypertension type: primary hypertension Qualified Code(s): I10 - Essential (primary) hypertension (2) Proteinuria: Code(s): R80.9 - Proteinuria, unspecified Category: Medical Qualifiers: Proteinuria type: other Qualified Code(s): R80.8 - Other proteinuria Plan Mr Keller has mild CKD and proteinuria likely from his longstanding hypertension. He is not a diabetic. He has aortic root dilatation. He has no H/O HF. He is not on any ACEI/ARB. His BP needs to be kept at goal. He will be a candidate for ACEI/ARB as well as SGLT2 i later. He needs a follow up renal USS. Answered all questions & F/U given Orders: Orders Protein Creatinine Ratio, Ur 3 Months I10 - Essential (primary) hypertension, R80.8 - Other proteinuria Electrolytes 3 Months I10 - Essential (primary) hypertension, R80.8 - Other proteinuria Blood Urea Nitrogen 3 Months I10 - Essential (primary) hypertension, R80.8 - Other proteinuria Creatinine 3 Months I10 - Essential (primary) hypertension, R80.8 - Other proteinuria Coding Level of Care Code Est Pt Level 4 (66521) Diagnoses Primary hypertension I10 Hypertension type: primary hypertension Other proteinuria R80.8 Proteinuria type: other
[2024-10-21 12:03] VITALS: BP 140/70; PULSE 54; O2SAT 98; BMI 28.2
== END 2024-10-21 12:15 | disposition home or self-care (01) ==
LOC: HO.HKA 11:35
PROVIDERS: PCP Physician Assistant; Visit Provider Internal Medicine Nephrology
DX: I10 Essential (primary) hypertension (principal); R80.8 Other proteinuria
CPT/HCPCS: 99214

== ENCOUNTER → 2024-10-21 11:34 | Outpatient (BNVA) | payer MEDICARE, SELFPAY | PROVIDERS: PCP Physician Assistant; Visit Provider Internal Medicine Nephrology | DX: I10 Essential (primary) hypertension (principal); R80.8 Other proteinuria | CPT/HCPCS: 99212 ==

== ENCOUNTER → 2024-11-19 10:55 | Outpatient (REF) | payer MEDICARE, SELFPAY ==
--- NOTE | ~2024-11-19 | NM_ITS ---
EXAMINATION: NM KIDNEY IMAGING CLINICAL INFORMATION: Hydronephrosis. COMPARISON: CT abdomen and pelvis without contrast 07/21/2024 and ultrasound kidney bilateral 06/23/2024. TECHNIQUE: Following intravenous administration of 10 mCi of technetium 99m DTPA, imaging over posterior abdomen with attention kidneys was obtained. 40 mg of Lasix was administered at 30 minutes into the exam. FINDINGS: On initial perfusion images there is symmetrical perfusion seen to both kidneys. On delayed static images there is progressive increased cortical activity in both kidneys slightly greater on the right than left. 30 minutes post-Lasix there is decreasing cortical activity in both kidneys. The findings are concordant on the graft with diagnosed suspicion or suggestion for obstructive hydronephrosis. On renal analysis, the split function measures left kidney 63.1% and right kidney measures 36.9%. Activity from peak Lasix to half Lasix is 12 minutes left kidney and 12.5 minutes right kidney. Activity from peak Lasix to two thirds Lasix is 37.5 minutes left kidney and 37.1 minute right kidney. NM/NM renal flow w pharm int IMPRESSION: Normal bilateral renal perfusion and normal cortical activity with no obstruction seen. There is decreasing renal excretion when Lasix was administered with no obstruction or retention of isotope seen post Lasix. There is no suggestion of hydronephrosis. Bilateral dilated renal pelvis are likely combination of extrarenal kidney pelvises and bilateral parapelvic cyst. Electronically signed by: Michel Alvarado MD 11/19/2024 03:29 PM EDT
--- OUTSIDE RECORDS SUMMARY | 2024-11-19 12:51 | XMS_ITS | Patient Health Record ---
Author Organization [facility] Address [address] [place] [address] [phone] Care Team Providers Care Ferry Engineer Name Role Phone [facility] Primary Care Provider [phone] Allergies No Known Allergies Reason For Referral [...] Status W/U Status Risk Notes Problem Overweight (369189319) Overweight (278.02) Active confirmed Problem Benign essential hypertension (8565387) Essential hypertension, benign (401.1) Active confirmed Problem Sciatica (38555865) Sciatica (724.3) Active confirmed Problem Insomnia (739719439) Insomnia, unspecified (780.52) Active confirmed Problem Throat pain (206088798) Throat pain (784.1) Active confirmed Problem Neck sprain (865572195) Neck sprain and strain (847.0) Active confirmed Problem Pre-operative evaluation (832399095) Unspecified pre-operative examination (V72.84) Active confirmed Problem Nondependent alcohol abuse (087155334) Nondependent alcohol abuse, 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) Active confirmed Problem Tobacco user (760201747) Nondependent tobacco use disorder (305.1) Active confirmed Problem Counseling for sexually transmitted disease (832521883) Counseling on other sexually transmitted diseases (V65.45) Active confirmed Problem Mixed hyperlipidemia (262454155) Mixed hyperlipidemia (E78.2) Active confirmed Problem Disorder of bilirubin metabolism (51235727) Disorder of bilirubin metabolism, 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 Problem Hypokalemia (09078484) Hypokalemia (E87.6) Active confirmed Problem Essential hypertension (50935185) Essential (primary) hypertension (I10) Active confirmed Problem Backache (353264427) Dorsalgia, unspecified (M54.9) Active confirmed Problem Hydronephrosis (38029689) Unspecified hydronephrosis (N13.30) Active confirmed Problem Palpitations (90198960) Palpitations (R00.2) Active confirmed Problem Edema (21749878) Edema, unspecified (R60.9) Active confirmed Problem Impaired fasting glucose (245781976) Impaired fasting glucose (R73.01) Active confirmed Problem Abnormal results of kidney function studies (989402830) Abnormal results of kidney function studies (R94.4) Active confirmed Problem Adult health examination (597185813) Encounter for general adult medical examination without abnormal findings (Z00.00) Active confirmed Problem Pre-procedure evaluation check (441430992) Encounter for other preprocedural examination (Z01.818) Active confirmed Problem Body mass index 25-29 - overweight (615536167) Body mass index (BMI) 28.0-28.9, adult (Z68.28) Active confirmed Problem BMI 25-29 - overweight (641600018) Body mass index (BMI) 29.0-29.9, adult (Z68.29) Active confirmed Problem Body mass index 30+ - obesity (653310022) Body mass index (BMI) 30.0-30.9, adult (Z68.30) [...] Complete 05/31/2015 Urinalysis, Complete 03/29/2014 Urinalysis, Complete 10/11/2015 Urinalysis, Complete 11/03/2012 Urinalysis, Complete 12/26/2012 Urinalysis, Complete 08/11/2012 Urinalysis, Complete 02/24/2013 Urinalysis, Complete 11/17/2013 Urinalysis, Complete 11/09/2011 Urinalysis, Complete 11/15/2014 TSH 11/15/2014 TSH 11/09/2011 TSH 11/17/2013 TSH 03/29/2014 TSH 02/24/2013 TSH 08/11/2012 TSH 12/26/2012 TSH 11/03/2012 TSH 03/27/2016 TSH 11/20/2016 TSH 06/04/2017 TSH 10/08/2017 TSH 03/01/2017 TSH 10/28/2018 TSH 02/03/2019 TSH 03/25/2018 TSH 07/08/2018 TSH 05/31/2015 TSH 08/17/2020 TSH 11/15/2020 TSH 10/11/2015 TSH 09/30/2019 TSH 03/14/2021 TSH 02/08/2020 CBC With Differential/Platelet 9 CBC With Differential/Platelet 6 CBC With Differential/Platelet 3 CBC With Differential/Platelet 4 CBC With Differential/Platelet 4 CBC With Differential/Platelet 3 CBC With Differential/Platelet 5 CBC With Differential/Platelet 2 CBC With Differential/Platelet 4 Lipid Panel 12/26/2012 Lipid Panel 03/29/2014 Lipid Panel 10/11/2015 Comp. Metabolic Panel (14) 03/27/2016 Comp. Metabolic Panel (14) 11/20/2016 Comp. Metabolic Panel (14) 06/04/2017 Comp. Metabolic Panel (14) 03/01/2017 Comp. Metabolic Panel (14) 10/08/2017 Comp. Metabolic Panel (14) 07/08/2018 Comp. Metabolic Panel (14) 03/25/2018 Comp. Metabolic Panel (14) 02/03/2019 Comp. Metabolic Panel (14) 10/28/2018 Comp. Metabolic Panel (14) 05/31/2015 Comp. Metabolic Panel (14) 11/15/2020 Comp. Metabolic Panel (14) 02/08/2020 Comp. Metabolic Panel (14) 08/17/2020 Comp. Metabolic Panel (14) 03/14/2021 Comp. Metabolic Panel (14) 10/11/2015 Comp. Metabolic Panel (14) 09/30/2019 Comp. Metabolic Panel (14) 02/24/2013 Comp. Metabolic Panel (14) 03/29/2014 Comp. Metabolic Panel (14) 11/17/2013 Comp. Metabolic Panel (14) 11/03/2012 Comp. Metabolic Panel (14) 08/11/2012 Comp. Metabolic Panel (14) 12/26/2012 Comp. Metabolic Panel (14) 11/15/2014 Comp. Metabolic Panel (14) 11/09/2011 Lipid Profile 11/15/2014 Lipid Profile 11/09/2011 Lipid Profile 11/03/2012 Lipid Profile 08/11/2012 Lipid Profile 11/17/2013 Lipid Profile 02/24/2013 Lipid Profile 09/30/2019 Lipid Profile 03/14/2021 Lipid Profile 08/17/2020 Lipid Profile 02/08/2020 Lipid Profile 11/15/2020 Lipid Profile 05/31/2015 Lipid Profile 10/28/2018 Lipid Profile 02/03/2019 Lipid Profile 03/25/2018 Lipid Profile 07/08/2018 Lipid Profile 10/08/2017 Lipid Profile 06/04/2017 Lipid Profile 03/01/2017 Lipid Profile 11/20/2016 Lipid Profile 03/27/2016 Carotid Duplex 12/16/2018 X ray : LS Spine 07/26/2015 X ray : LS Spine 08/11/2012 X ray : LS Spine 06/19/2013 PSA, total 11/15/2014 PSA, total 11/09/2011 PSA, total 02/24/2013 PSA, total 11/17/2013 PSA, total 08/11/2012 PSA, total 11/03/2012 PSA, total 12/26/2012 PSA, total 09/30/2019 PSA, total 03/14/2021 PSA, total 02/08/2020 PSA, total 08/17/2020 PSA, total 05/31/2015 PSA, total 02/03/2019 PSA, total 07/08/2018 PSA, total 10/28/2018 PSA, total 03/25/2018 PSA, total 06/04/2017 INFLUENZA 12/13/2015 MRI : Cervical without Contrast 09/16/19 13 Ultrasound : Abd/Aorta Comp 12/16/2018 Ultrasound : Kidneys, bilateral with dop pler 11/20/2016 X ray : Toe 09/24/2014 HSV 2 IGG HERPESELECT AB 06/23/2015 HSV 2 IGG HERPESELECT AB 05/31/2015 BASIC METAB PANEL 06/21/2014 BASIC METAB PANEL 12/10/2017 BASIC METAB PANEL 12/13/2015 BASIC METAB PANEL 05/05/2018 BASIC METAB PANEL 03/04/2014 BASIC METAB PANEL 06/29/2014 BASIC METAB PANEL 12/28/2015 BASIC METAB PANEL 01/11/2016 BASIC METAB PANEL 01/11/2014 BASIC METAB PANEL 06/19/2013 BASIC METAB PANEL 12/19/2017 BASIC METAB PANEL 05/09/2018 COMP METAB PANEL 08/14/2018 COMP METAB PANEL 03/05/2013 COMP METAB PANEL 01/04/2014 COMP METAB PANEL 01/20/2016 COMP METAB PANEL 11/23/2015 COMP METAB PANEL 05/29/2016 COMP METAB PANEL 12/13/2016 COMP METAB PANEL 07/25/2017 COMP METAB PANEL 11/07/2017 COMP METAB PANEL 12/09/2014 COMP METAB PANEL 04/07/2014 COMP METAB PANEL 03/23/2015 COMP METAB PANEL 06/23/2015 COMP METAB PANEL 08/18/2012 COMP METAB PANEL 11/24/2012 COMP METAB PANEL 05/26/2018 HEPATITIS B SURFACE AB,QL 05/31/2015 HEPATITIS B SURFACE AB,QL 06/23/2015 MAGNESIUM 05/26/2018 MAGNESIUM 02/08/2020 MAGNESIUM 09/30/2019 MAGNESIUM 05/09/2018 PROTHROMBIN TIME W/ INR 05/27/2018 PSA,TOTAL 08/14/2018 PSA,TOTAL 05/14/2018 PSA,TOTAL 04/23/2018 PSA,TOTAL 08/18/2012 PSA,TOTAL 06/23/2015 PSA,TOTAL 12/09/2014 PSA,TOTAL 07/25/2017 PSA,TOTAL 01/20/2016 PSA,TOTAL 03/05/2013 PSA,TOTAL 01/04/2014 PSA,TOTAL 11/24/2012 TSH 03/05/2013 TSH 01/04/2014 TSH 11/24/2012 TSH 01/20/2016 TSH 05/29/2016 TSH 11/23/2015 TSH 07/25/2017 TSH 11/07/2017 TSH 12/13/2016 TSH 12/09/2014 TSH 04/07/2014 TSH 06/23/2015 TSH 03/23/2015 TSH 08/18/2012 TSH 04/23/2018 TSH 05/14/2018 TSH 08/14/2018 URINALYSIS,COMPLETE 08/14/2018 URINALYSIS,COMPLETE 05/14/2018 URINALYSIS,COMPLETE 04/23/2018 URINALYSIS,COMPLETE 11/07/2017 URINALYSIS,COMPLETE 08/18/2012 URINALYSIS,COMPLETE 11/15/2020 URINALYSIS,COMPLETE 08/17/2020 URINALYSIS,COMPLETE 09/30/2019 URINALYSIS,COMPLETE 03/27/2016 URINALYSIS,COMPLETE 03/14/2021 URINALYSIS,COMPLETE 02/08/2020 URINALYSIS,COMPLETE 03/25/2018 URINALYSIS,COMPLETE 07/08/2018 URINALYSIS,COMPLETE 10/08/2017 URINALYSIS,COMPLETE 02/03/2019 URINALYSIS,COMPLETE 10/28/2018 URINALYSIS,COMPLETE 11/20/2016 URINALYSIS,COMPLETE 06/04/2017 URINALYSIS,COMPLETE 03/01/2017 URINALYSIS,COMPLETE 06/23/2015 URINALYSIS,COMPLETE 04/07/2014 URINALYSIS,COMPLETE 12/09/2014 URINALYSIS,COMPLETE 05/29/2016 URINALYSIS,COMPLETE 12/13/2016 URINALYSIS,COMPLETE 07/25/2017 URINALYSIS,COMPLETE 11/23/2015 URINALYSIS,COMPLETE 06/19/2013 URINALYSIS,COMPLETE 01/04/2014 URINALYSIS,COMPLETE 03/05/2013 URINALYSIS,COMPLETE 11/24/2012 CBC (INCLUDES DIFF/PLT) 03/05/2013 CBC (INCLUDES DIFF/PLT) 01/04/2014 CBC (INCLUDES DIFF/PLT) 11/24/2012 CBC (INCLUDES DIFF/PLT) 12/26/2012 CBC (INCLUDES DIFF/PLT) 01/20/2016 CBC (INCLUDES DIFF/PLT) 05/29/2016 CBC (INCLUDES DIFF/PLT) 11/23/2015 CBC (INCLUDES DIFF/PLT) 07/25/2017 CBC (INCLUDES DIFF/PLT) 11/07/2017 CBC (INCLUDES DIFF/PLT) 12/13/2016 CBC (INCLUDES DIFF/PLT) 12/09/2014 CBC (INCLUDES DIFF/PLT) 04/07/2014 CBC (INCLUDES DIFF/PLT) 03/23/2015 CBC (INCLUDES DIFF/PLT) 06/23/2015 CBC (INCLUDES DIFF/PLT) 10/11/2015 CBC (INCLUDES DIFF/PLT) 08/18/2012 CBC (INCLUDES DIFF/PLT) 03/29/2014 CBC (INCLUDES DIFF/PLT) 04/23/2018 CBC (INCLUDES DIFF/PLT) 05/27/2018 CBC (INCLUDES DIFF/PLT) 05/14/2018 CBC (INCLUDES DIFF/PLT) 08/14/2018 HEMOGLOBIN A1C 12/19/2017 HEMOGLOBIN A1C 03/29/2014 HEMOGLOBIN A1C 06/21/2014 HEMOGLOBIN A1C 09/30/2019 HEMOGLOBIN A1C 10/11/2015 HEMOGLOBIN A1C 03/17/2019 HEMOGLOBIN A1C 12/10/2017 HEMOGLOBIN A1C 04/07/2014 HEMOGLOBIN A1C 06/29/2014 HEMOGLOBIN A1C 11/23/2015 HEMOGLOBIN A1C 12/26/2012 MICROSCOPIC EXAM,URINE 03/23/2015 MICROALBUMIN,RAND U(W/CR) 04/07/2014 MICROALBUMIN,RAND U(W/CR) 11/23/2015 MICROALBUMIN,RAND U(W/CR) 12/26/2012 MICROALBUMIN,RAND U(W/CR) 10/11/2015 MICROALBUMIN,RAND U(W/CR) 03/29/2014 HEPATITIS C AB 05/31/2015 HEPATITIS C AB 06/23/2015 URINALYSIS,REFLEX 03/23/2015 URINALYSIS,REFLEX 01/20/2016 LIPID PANEL 11/23/2015 LIPID PANEL 04/07/2014 LIPID PANEL CLARIFICATION 12/09/2014 LIPID PANEL CLARIFICATION 03/23/2015 LIPID PANEL CLARIFICATION 06/23/2015 LIPID PANEL CLARIFICATION 01/20/2016 LIPID PANEL CLARIFICATION 05/29/2016 LIPID PANEL CLARIFICATION 12/13/2016 LIPID PANEL CLARIFICATION 07/25/2017 LIPID PANEL CLARIFICATION 11/07/2017 LIPID PANEL CLARIFICATION 01/04/2014 LIPID PANEL CLARIFICATION 03/05/2013 LIPID PANEL CLARIFICATION 08/18/2012 LIPID PANEL CLARIFICATION 11/24/2012 LIPID PANEL CLARIFICATION 04/23/2018 LIPID PANEL CLARIFICATION 05/14/2018 LIPID PANEL CLARIFICATION 08/14/2018 COMP METABOLIC PANEL CLARIFICATION 05/14 COMP METABOLIC PANEL CLARIFICATION 04/23 COMPLETE BLOOD COUNT 11/15/2020 COMPLETE BLOOD COUNT 03/14/2021 COMPLETE BLOOD COUNT 09/30/2019 COMPLETE BLOOD COUNT 08/17/2020 COMPLETE BLOOD COUNT 02/08/2020 COMPLETE BLOOD COUNT 03/27/2016 COMPLETE BLOOD COUNT 11/20/2016 COMPLETE BLOOD COUNT 10/08/2017 COMPLETE BLOOD COUNT 03/01/2017 COMPLETE BLOOD COUNT 06/04/2017 COMPLETE BLOOD COUNT 03/25/2018 COMPLETE BLOOD COUNT 07/08/2018 COMPLETE BLOOD COUNT 02/03/2019 COMPLETE BLOOD COUNT 10/28/2018 HSV 1 IGG HERPESELECT AB 05/31/2015 HSV 1 IGG HERPESELECT AB 06/23/2015 BILIRUBIN PANEL 06/11/2016 HIV 1/2 AG/AB,4TH GEN RFL 05/31/2015 HIV 1/2 AG/AB,4TH GEN RFL 06/23/2015 NEG HIV 4TH GEN 06/23/2015 NEG HCV RNA,QN,REAL TIME PCR 06/23/2015 PT W/INR AND PTT 05/26/2018 SARS COV 2(COVID19)IGG,IA 09/30/2019 SARS COV 2(COVID19)IGG,IA 08/17/2020 2019 NOVEL CORONAVIRUS (COVID-19) RNA, Q L RT-PCR 08/17/2020 Insurance Providers Payer Name Payer Address Payer Phone Subscriber Number Group Number Insured Name Patient Relationship to Insured Coverage Start Date Coverage End Date [facility] [address] [place] [address] [phone] [id number] Max Cortes Self - patient is the insured Medical (General) History Medical History History ICD Code HTN microhematuria HERPES 2 in blood gout colonoscopy 2020 Repeat 5 yrs Surgical History Surgery Date(Month/Year) Rt inguinal hernia 2009 Hospitalization History Reason Date(Month/Year) cardiac cath 06/18/13 cardiac cath WNL 10/2015
== END ==
LOC: HO.NUCMED 10:55
PROVIDERS: PCP Physician Assistant; Visit Provider Nurse Practitioner Family
DX: N13.39 Other hydronephrosis (principal)
CPT/HCPCS: 78708; A9539; J1938

== ENCOUNTER → 2024-11-19 10:57 | Outpatient (BNV) | payer MEDICARE, SELFPAY | PROVIDERS: PCP Physician Assistant; Visit Provider Radiology Diagnostic Radiology | DX: N13.30 Unspecified hydronephrosis (principal) | CPT/HCPCS: 78708 ==

== ENCOUNTER 2024-11-25 08:38 | Outpatient (AMB) | payer MEDICARE, MEDICAID, SELFPAY ==
--- NOTE | 2024-11-25 08:41 | A.OFFVIS_ITS ---
Intake Visit Reasons: 3m/ Nuclear Scan/Labs Intake Note: Patient is present for 3M/NUCLEAR SCAN/LABS Urology Medication:TAMSULOSIN Antibiotic Allergy:NONE Blood Thinner:ASPIRIN Steam Turbine Assembler Required: No Allergies No Known Allergies Allergy (Verified 11/25/24 09:40) Medication List - Last Reconciled 11/25/24 by NOA Booker-JANIS aspirin 81 mg PO DAILY 90 days atenolol 100 mg PO BEDTIME 90 days atorvastatin 10 mg PO DAILY 90 days colchicine 0.3 mg (1/2 x 0.6 mg) PO DAILY PRN 14 days loratadine 5 mg PO DAILY 90 days melatonin 3 mg PO BEDTIME PRN 30 days nifedipine ER 30 mg PO DAILY polymyxin B sulf-trimethoprim 10,000 unit- 1 mg/mL 1 drp ophthalmic (eye) QID PRN 7 days tamsulosin 0.4 mg PO BEDTIME 90 days HPI Comments Details: Max is a very pleasant 79-year-old male patient of Dr. Macedo. He has a past medical history of BPH, Gout, hyperlipidemia, and hypertension. He presents to the office today for follow-up of his lower urinary tract symptoms. In discussion with the patient today reports to be doing and feeling well. He reports compliance with Flomax as prescribed. Of note, patient was seen a proximally 3 months ago at which time CT 08/12 noted moderate bilateral hydronephrosis with peripelvic cysts also present at which time a nuclear renal scan was ordered for further assessment evaluation. These results were reviewed and communicated with the patient today. 12/12 on renal analysis this with function measures left kidney 63% in right kidney 37%. Normal bilateral renal perfusion and normal cortical activity with no obstruction seen. He continues to follow-up with nephrology for his ongoing proteinuria. He does continue to endorse episodes of nocturia however also reports a longstanding history of insomnia and feels this could be the cause of his nocturia. We did discussed obtaining sleep study for further assessment evaluation however he does not feel this is necessary in declines at this time. In office urinalysis results reviewed with the patient today. PSAs are as follows: PSA: 12/10 1.2, 06/11 1.1, 06/12 1.3 He currently denies any bothersome urinary issues or concerns at this time. He denies urinary urgency, urinary frequency, incontinence, hematuria, dysuria, foul smelling urine, changes to urinary stream, flank pain, fever, and or chills. Previous urine cytology results were reviewed: Cytology 06/12: Negative for high-grade urothelial carcinoma. He does report noting episodes of erectile dysfunction over the last 6-8 months. He is able to obtain an erection however feels maintaining erection to be difficult. We did discussed potential causes of ED and further treatment options and risks and benefits of these treatment options. All questions were answered. He otherwise offers no other issues or concerns at this time. BUN: 12/10 15, 06/11 17, 07/11 18, 10/11 17, 06/12 15, 07/12 16, 11/12 13 Creatinine: 12/10 0.99, 06/11 1.17, 07/11 1.10, 10/11 1.02, 06/12 1.03, 07/12 0.83, 11/12 1.00 PFSH Medical History History of fractured rib Gout flare Surgical History Hernia Family History Mother Heart attack HTN (hypertension) Father HTN (hypertension) Heart attack Sister DM2 (diabetes mellitus, type 2) Social History Housing: House Alcohol intake: current Alcohol intake frequency: holidays/special occasions only Alcohol type: beer Patient Tobacco Use Status: Former Tobacco user Tobacco use type: Cigarette e-Cigarette/Vaping Use: Never Used service: No 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 Cognitive needs: No Hearing needs: No Vision needs: No Review of Systems Const Reports no additional complaints Eyes Reports no additional complaints ENT Reports no additional complaints Card Reports as per HPI Resp Reports no additional complaints GI Reports no additional complaints Reports as per HPI Musc Reports no additional complaints Neuro Reports no additional complaints Psych Reports no additional complaints Endo Reports no additional complaints Dalton/Lymph Reports no additional complaints Aller/Immun Reports no additional complaints Physical Exam Const General: cooperative, healthy appearing, comfortable, no acute distress, well developed, alert and awake Orientation/consciousness: patient oriented x3 Limitations: no limitations HEENT Head: Yes normal to inspection, Yes normocephalic and Yes atraumatic Ears: hearing grossly normal bilaterally Eyes General: appearance normal, both eyes and all related structures Neck Neck: Yes normal visual inspection and Yes trachea midline Chest Chest palpation & inspection: normal inspection of the chest Resp Effort & Inspection: normal respiratory effort and able to speak in complete sentences Cardio Rate: regular rate GI Inspection: Yes normal to inspection General: Yes no CVA tenderness Back/Spine/Pelvis Back: no CVA tenderness Skin General skin exam: no rashes or lesions noted Neuro General: patient oriented x3 Extrem General: Yes normal to inspection Psych Appearance: grossly normal and well kempt Mental Status: mental status grossly normal Speech and movement: Normal speech and movement present and Clear speech present Affect: normal affect Attitude: cooperative Thought process: Normal thought process present Thought content: Normal thought content present Insight: Fair insight present (Psych) Judgement: Fair judgement present (Psych) Results AMB Urinalysis, Automated UA Leukoctes 0 Lilly/uL Last Edit by ORTEGA Varghese on 11/25/24 08:52 UA Nitrite Negative Last Edit by ORTEGA Varghese on 11/25/24 08:52 UA Urobilinogen 0.2 mg/dL Last Edit by ORTEGA Varghese on 11/25/24 08:5 2 UA Protein 30 mg/dL Last Edit by ORTEGA Varghese on 11/25/24 08:52 UA pH 6.5 Last Edit by ORTEGA Varghese on 11/25/24 08:52 UA Blood 0 Kodi/uL Last Edit by ORTEGA Varghese on 11/25/24 08:52 UA Specific [place] 1.015 Last Edit by ORTEGA Varghese on 11/25/24 08: 52 UA Ketone Negative Last Edit by ORTEGA Varghese on 11/25/24 08:52 UA Bilirubin 0 mg/dL Last Edit by ORTEGA Varghese on 11/25/24 08:52 UA Glucose 0 mg/dL Last Edit by ORTEGA Varghese on 11/25/24 08:52 Results Reviewed Results Reviewed: Laboratory Last Values Urine pH (Auto) 6.5 11/25/24 08:51 Specific [place] (Auto) 1.015 11/25/24 08:51 Urine Protein (Auto) 30 mg/dL 11/25/24 08:51 Glucose (UA)(Auto) 0 mg/dL 11/25/24 08:51 Urine Ketones (Auto) Negative 11/25/24 08:51 Urine Blood (Auto) 0 [place]/uL 11/25/24 08:51 Urine Nitrite (Auto) Negative 11/25/24 08:51 Urine Bilirubin (Auto) 0 mg/dL 11/25/24 08:51 Urine Urobilinogen (Auto) 0.2 mg/dL 11/25/24 08:51 Leukocyte Esterase (Auto) 0 Lilly/uL 11/25/24 08:51 Date of Service: 11/19/24 Procedure(s): NM renal flow w pharm int FINDINGS: On initial perfusion images there is symmetrical perfusion seen to both kidneys. On delayed static images there is progressive increased cortical activity in both kidneys slightly greater on the right than left. 30 minutes post-Lasix there is decreasing cortical activity in both kidneys. The findings are concordant on the graft with diagnosed suspicion or suggestion for obstructive hydronephrosis. On renal analysis, the split function measures left kidney 63.1% and right kidney measures 36.9%. Activity from peak Lasix to half Lasix is 12 minutes left kidney and 12.5 minutes right kidney. Activity from peak Lasix to two thirds Lasix is 37.5 minutes left kidney and 37.1 minute right kidney. IMPRESSION: Normal bilateral renal perfusion and normal cortical activity with no obstruction seen. There is decreasing renal excretion when Lasix was administered with no obstruction or retention of isotope seen post Lasix. There is no suggestion of hydronephrosis. Bilateral dilated renal pelvis are likely combination of extrarenal kidney pelvises and bilateral parapelvic cyst. Assessment & Plan Assessment & Plan (1) Hydronephrosis: Code(s): N13.30 - Unspecified hydronephrosis Category: Medical Qualifiers: Hydronephrosis type: other Qualified Code(s): N13.39 - Other hydronephrosis (2) BPH (benign prostatic hyperplasia): Code(s): N40.0 - Benign prostatic hyperplasia without lower urinary tract symptoms Category: Medical Qualifiers: Lower urinary tract symptom detail: nocturia Lower urinary tract symptom presence: symptoms present Qualified Code(s): N40.1 - Benign prostatic hyperplasia with lower urinary tract symptoms; R35.1 - Nocturia (3) Erectile dysfunction: Code(s): N52.9 - Male erectile dysfunction, unspecified Category: Medical Plan In office urinalysis results with the patient today; as noted above. Recent nuclear renal imaging results reviewed with the patient today; as noted above. Recent BUN and creatinine results reviewed with the patient today; as noted above. Continue Flomax as discussed and prescribed. He currently denies any bothersome urinary issues. He reports be happy with current voiding parameters. We did discussed further treatment options of ED and risks and benefits of these treatment options. Will obtain PSA in 6 months Follow-up in 6 months PSA, BUN,creatinine, and PVR; or sooner with any issues, concerns, and or questions. Orders: Orders Creatinine 6 Months N13.39 - Other hydronephrosis AMB Urinalysis Automated Today Z13.9 - Encounter for screening, unspecified Blood Urea Nitrogen 6 Months N13.39 - Other hydronephrosis Prostate Specific Antigen 6 Months N13.39 - Other hydronephrosis Medications: New tadalafil (Cialis) [id number] [facility] Member [id number] 5 mg PO DAILY 90 tabs 1RF 90 days Patient Instructions: The patient had an opportunity to ask questions regarding the treatment plan. All questions were answered. Physical exam, labs, and imaging were discussed and reviewed in detail. As well as risks, benefits, and discussion of treatment choices. No major barriers to understanding were identified. The patient expressed understanding and agreement with the above treatment plan. The patient was made aware they should contact our office by phone for worsening of their current condition, the appearance of new symptoms, or with any questions or concerns. Compliance is encouraged with any medications and follow up testing that is ordered. It is a privilege to be allowed the opportunity to participate in? your urological care.? Again, if you have any questions or concerns If you have any questions or concerns please do not hesitate to contact me. The office is [phone]. This note is constructed using voice recognition software. While every effort has been made to ensure accuracy soaping department supervisor errors may have been included. Yours sincerely, KEMAR Booker Coding Level of Care Code Est Pt Level 4 (17165) Diagnoses Other hydronephrosis N13.39 Hydronephrosis type: other Benign prostatic hyperplasia with nocturia N40.1; R35.1 Lower urinary tract symptom detail: nocturia Lower urinary tract symptom presence: symptoms present Erectile dysfunction N52.9
== END 2024-11-25 09:08 | disposition home or self-care (01) ==
PROVIDERS: PCP Physician Assistant; Visit Provider Nurse Practitioner Family
DX: N13.39 Other hydronephrosis (principal); N40.1 Benign prostatic hyperplasia with lower urinary tract symptoms; R35.1 Nocturia; N52.9 Male erectile dysfunction, unspecified; Z13.9 Encounter for screening, unspecified
CPT/HCPCS: 99214

== ENCOUNTER → 2024-11-25 08:38 | Outpatient (BNVA) | payer MEDICARE, OTHER, SELFPAY | PROVIDERS: PCP Physician Assistant; Visit Provider Nurse Practitioner Family | DX: N40.0 Benign prostatic hyperplasia without lower urinary tract symptoms (principal); N13.39 Other hydronephrosis; N52.9 Male erectile dysfunction, unspecified; R35.1 Nocturia | CPT/HCPCS: 81003; 99212 ==

== ENCOUNTER 2024-12-14 10:04 | Outpatient (AMB) | payer MEDICARE, MEDICAID, SELFPAY ==
--- NOTE | 2024-12-14 10:12 | A.OFFPC_ITS ---
Vital Signs 12/14/24 10:14 12/14/24 10:30 Height 5 ft 6 in Weight 177 lb 8 oz BMI 28.6 BP 100/68 145/60 H Blood Pressure Location Lt brachial Position Sitting Pulse 54 Pulse Source Pulse Oximeter Temp 97.3 F Temp Source Temporal Artery Scan Pulse Oximetry (%) 96 Oxygen Delivery Method Room Air Intake Visit Reasons: f/u HTN Intake Note: Patient is here to follow up on HTN. Director Of Marketing Analytics Required: No Process Improvement Specialist: Not Required per policy Accompanied by: Self / Same As Patient Allergies No Known Allergies Allergy (Verified 12/14/24 10:23) Medication List - Last Reconciled 12/14/24 by Zander Macedo PA-C aspirin 81 mg PO DAILY 90 days atenolol 100 mg PO BEDTIME 90 days atorvastatin 10 mg PO DAILY 90 days colchicine 0.3 mg (1/2 x 0.6 mg) PO DAILY PRN 14 days loratadine 5 mg PO DAILY 90 days melatonin 3 mg PO BEDTIME PRN 30 days nifedipine ER 30 mg PO DAILY polymyxin B sulf-trimethoprim 10,000 unit- 1 mg/mL 1 drp ophthalmic (eye) QID PRN 7 days tadalafil (Cialis) 5 mg PO DAILY 90 days tamsulosin 0.4 mg PO BEDTIME 90 days Tobacco use date assessed: 12/14/24 Fall risk assessment: No Falls in past year Last assessed Fall Risk: 12/14/24 Dental Screening Dental Screen Date: 04/16/24 HPI f/u HTN HPI Details Patient is a 79-year-old male here today for a follow-up visit Patient's past medical history significant for BPH, hypertension, hyperlipidemia. Proteinuria: Patient followed by Nephrology here in [place] most recent urinalysis showing elevated proteins. Did get an ultrasound did show evidence of hydronephrosis. Repeat imaging of CT scanning showing bilateral moderate hydronephrosis which per patient has been consistent finding. He had later underwent a renal scan showing--> Normal bilateral renal perfusion and normal cortical activity with no obstruction seen. Hypertension: On atenolol, nifedipine . He denies any side effects. Patient's blood pressure acceptable today in office PLAN: Will add on lisinopril due to the proteinuria BPH: Patient continues on tamsulosin with good effect on his urinary flow. .. Cardiomyopathy: Has followed up with [facility]. 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 Seems to have had a low cardiac calcium score. Most recent pro Pro BNP slightly elevated at 666. Laboratory Tests 06/08/24 10/20/24 11:15 09:53 U Random Total Pro tein 63 H Urine Creatinine 127.47 Protein/Creatinin Ratio 0.47 [facility] Medical History History of fractured rib Gout flare Surgical History Hernia Family History Mother Heart attack HTN (hypertension) Father HTN (hypertension) Heart attack Sister DM2 (diabetes mellitus, type 2) Social History Housing: House Alcohol intake: current Alcohol intake frequency: holidays/special occasions o nly Alcohol type: beer Patient Tobacco Use Status: Former Tobacco user Tobacco use type: Cigarette e-Cigarette/Vaping Use: Never Used Second Hand Smoke Exposure: Yes service: No 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 1. Little interest or pleasure in doing things: not at all 2. Feeling down, depressed, or hopeless: not at all 3. Trouble falling or staying asleep, or sleeping too much: not at all 4. Feeling tired or having little energy: not at all 5. Poor appetite or overeating: not at all 6. Feeling bad about yourself - or that you are a failure or have let yourself or your family down: not at all 7. Trouble concentrating on things, such as reading the newspaper or watching television: not at all 8. Moving or speaking so slowly that other people could have noticed. Or the opposite - being so fidgety or restless that you have been moving around a lot more than usual: not at all 9. Thoughts that you would be better off or of hurting yourself in some way: not at all Total score: 0 Depression Screening Interpretation: Negative Depression Screening Done: Yes 28091 - PHQ-9 Billing: Yes Source: Developed by Drs. Henrique Vaughn, Marcie Hoyos, Altaf Swanson and colleagues, with an educational jennifer from [employer]. Thrive Questionnaire Date Thrive assessed: 12/14/24 I am a: Patient What is your living situation today?: I have a steady place to live Within the past 12 months, did the food you bought not last and you didn't have the money to get more?: Never true Within the past 12 months, did you worry whether your food would run out before you got money to buy more?: Never true Do you have trouble paying for medicines?: No Do you have trouble getting transportation to medical appointments?: No Do you have trouble paying your heating and electricity bill?: No Do you have trouble taking care of your child, family member or friend?: No Do you have trouble with day-to-day activities such as bathing, preparing meals, shopping, managing finances, etc.?: No Are you currently unemployed and looking for a job?: No Are you interested in more education?: No Please select the resources that you would like help with: None Currently or been in a relationship where the following occur: No concerns reported THRIVE Score: 0 AUDIT C Alcohol Use Questionnaire (AUDIT-C) 1. How often do you have a drink containing alcohol?: Never Total Score: 0 ALEXEI-7 AMB Questionnaire ALEXEI-7 Date ALEXEI - 7 assessed: 04/16/24 Source: Developed by Drs. Henrique Vaughn, Marcie Hoyos, Altaf Swanson and colleagues, with an educational jennifer from [employer]. Review of Systems Const Denies headache(s) Eyes Denies loss of vision ENT Denies vertigo, Denies dizziness, Denies headache(s) and Denies sore throat Card Denies chest pain, Denies leg edema and Denies lightheadedness Resp Denies cough, Denies hemoptysis and Denies wheezing GI Denies abdominal pain, Denies melena, Denies constipation, Denies diarrhea and Denies vomiting Denies dysuria, Denies urinary frequency and Denies urinary urgency Musc Denies arthralgias, Denies joint swelling, Denies numbness and Denies tingling Neuro Denies Abnormal speech present, Denies behavioral changes, Denies vertigo, Den ies dizziness, Denies headache(s), Denies loss of vision, Denies memory loss, Denies numbness and Denies tingling Psych Denies anxiety, Denies behavioral changes, Denies depression, Denies memory loss and Denies panic attacks Dalton/Lymph Denies easy bleeding and Denies easy bruising Aller/Immun Denies wheezing Physical exam (Primary Care) Vital Signs: Last Vital Signs Temp 97.3 F 12/14/24 10:14 Pulse 54 12/14/24 10:14 BP 145/60 H 12/14/24 10:30 Pulse Ox 96 12/14/24 10:14 Oxygen Delivery Method Room Air 12/14/24 10:14 Care Plan Goal for BP management: Continue monitoring blood pressure at home. Continue following up with Nephrology Next steps: Adding on lisinopril 5 mg for protein urea, blood pressure to be below 130/80 BMI result Body Mass Index 28.6 Tobacco/Smoking Status: Tobacco use Status Tobacco use date assessed 12/14/24 12/14/24 10:18 Patient Tobacco Use Status Former Tobacco user 12/14/24 10:18 Tobacco use type Cigarette 12/14/24 10:18 e-Cigarette/Vaping Use Never Used 12/14/24 10:18 PHQ-9: PHQ-9 Score PHQ-9: Total score 0 12/14/24 10:42 Depression Screening Interpretation: Negative Thrive Assessment: Date of Thrive Assessment Date Thrive assessed 12/14/24 12/14/24 10:18 Currently or been in a relationship where the following occur: No concerns reported Const General: healthy appearing, no acute distress, alert and awake Nutritional Appearance: well nourished Orientation/consciousness: oriented to person, oriented to place and oriented to time HENDC Ears: TM's normal bilaterally General nose exam: Normal nasal mucous membranes and turbinates present Eyes Conjunctivae: conjunctivae normal Sclerae: sclerae normal Pupils: Equal, round and reactive pupils present Neck Neck: Yes no lymphadenopathy and Yes no JVD Thyroid: Thyroid normal Carotids: no bruits Resp Effort & Inspection: normal respiratory effort and not tachypneic Auscultation: no crackles, no rales, no rhonchi and no wheezes Cardio Rate: regular rate Rhythm: regular rhythm Heart sounds: no murmurs and normal S1 and S2 GI Palpation (GI): Soft to palpation, nontender, no hepatomegaly and no splenomegaly Auscultation: normal bowel sounds Skin General skin exam: no rashes or lesions noted and dry skin Neuro General: oriented to person, oriented to place and oriented to time Cranial nerves: Yes Equal, round and reactive pupils present Speech: No Abnormal speech present Gait exam (Neuro): Normal gait present Motor exam (neuro): no tremor noted Extrem Right upper extremity: full ROM Left upper extremity: full ROM Right lower extremity: full ROM; no edema Left lower extremity: full ROM; no edema Psych Mental Status: mental status grossly normal Speech and movement: Normal speech and movement present Affect: normal affect Attitude: cooperative Thought process: Normal thought process present Office Procedures Flu Questionnaire Does the patient have a severe egg allergy?: No Does the patient have severe life threatening allergies?: No Does the patient have a fever or illness today?: No Has the patient ever had Guillain-[place] Syndrome?: No Has the patient ever had any past reaction to a flu shot?: No Immunizations Fluarix [id number] (PF) 45 mcg (15 mcg x 3)/0.5 mL IM syringe Performing Provider: Zander Macedo PA-C [facility] Administered by: ARTEMIO Melissa on 12/14/24 10:42 Dose Route Admin Location Dispensed Lot Number Expiration Date NDC Salt Lifter 0.5 mL IM Left Deltoid 0.5 mL [id number] 08/17/25 [id number] [employer] VIS Given Date VIS Provided VIS Publication Date 12/14/24 Single Vaccine 24 Eligibility Eligibility Date Funding Source Not [facility] Eligible 12/14/24 Private Coding Level of Care Code Est Pt Level 4 (33802) Diagnoses Mixed hyperlipidemia E78.2 Hyperlipidemia type: mixed hyperlipidemia Primary hypertension I10 Hypertension type: primary hypertension Other proteinuria R80.8 Proteinuria type: other Additional Codes PHQ-9 - 09585 - PHQ-9 Billing: Yes ([id number]) Assessment & Plan Assessment & Plan (1) HLD (hyperlipidemia): Code(s): E78.5 - Hyperlipidemia, unspecified Category: Medical Qualifiers: Hyperlipidemia type: mixed hyperlipidemia Qualified Code(s): E78.2 - Mixed hyperlipidemia Plan: Patient continues on atorvastatin 10 mg. Most recent lipid panel showing good control of his total cholesterol and LDL. LDL remains below 100 (2) HTN (hypertension): Code(s): I10 - Essential (primary) hypertension Category: Medical Qualifiers: Hypertension type: primary hypertension Qualified Code(s): I10 - Essential (primary) hypertension Plan: Patient's blood pressure at the elevated today in office, will add on lisinopril 5 mg due to patient's history of proteinuria. Will continue current dose of antihypertensive medication with goal blood pressure to remain below 140/90 (3) Proteinuria: Code(s): R80.9 - Proteinuria, unspecified Category: Medical Qualifiers: Proteinuria type: other Qualified Code(s): R80.8 - Other proteinuria Plan: Proteinuria is being managed with medication prescribed by the urologist. Recent renal scan seem to be within normal limits. Further evaluation and management are planned. Due to patient's protein in the urine will add on CECE-inhibitor. Orders: Orders Influenza [id number] Immunization 12/14/24 Z23 - Encounter for immunization Comprehensive [place]. Panel Fast 12/14/24 I10 - Essential (primary) hypertension Lipid Panel 12/14/24 E78.2 - Mixed hyperlipidemia Complete Blood Count no Diff 12/14/24 E78.2 - Mixed hyperlipidemia Hemoglobin A1c 12/14/24 R73.09 - Other abnormal glucose Medications: New lisinopril 5 mg PO DAILY 90 tabs 1RF 90 days R80.9 - Proteinuria, unspecified Changed From tadalafil (Cialis) [id number] [facility] Member [id number] 5 mg PO DAILY 90 days 90 tabs 1RF To tadalafil (Cialis) [id number] [facility] Member [id number] 5 mg PO DAILY PRN 7 tabs 1RF sexual activity 7 days Patient Instructions: Goal: Blood pressure to be below 130/80 Barriers: Age, Adherence to physical activity and healthy eating habits
[2024-12-14 10:14] VITALS: BP 100/68; PULSE 54; TEMP 36.3; O2SAT 96; BMI 28.6
[2024-12-14 10:30] VITALS: BP 145/60
--- OUTSIDE RECORDS SUMMARY | 2024-12-14 11:59 | XMS_ITS | Patient Health Record ---
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 Role Phone [facility] Primary Care Provider [phone] Allergies No Known Allergies Reason For Referral [...] Status W/U Status Risk Notes Problem Overweight (827689075) Overweight (278.02) Active confirmed Problem Benign essential hypertension (4324635) Essential hypertension, benign (401.1) Active confirmed Problem Sciatica (95423672) Sciatica (724.3) Active confirmed Problem Insomnia (589220427) Insomnia, unspecified (780.52) Active confirmed Problem Throat pain (006640967) Throat pain (784.1) Active confirmed Problem Neck sprain (377266905) Neck sprain and strain (847.0) Active confirmed Problem Pre-operative evaluation (560845305) Unspecified pre-operative examination (V72.84) Active confirmed Problem Nondependent alcohol abuse (735556723) Nondependent alcohol abuse, 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) Active confirmed Problem Tobacco user (702848975) Nondependent tobacco use disorder (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) Active confirmed Problem Counseling for sexually transmitted disease (505121025) Counseling on other sexually transmitted diseases (V65.45) Active confirmed Problem Mixed hyperlipidemia (819038432) Mixed hyperlipidemia (E78.2) Active confirmed Problem 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, 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 Problem Hypokalemia (62826775) Hypokalemia (E87.6) Active confirmed Problem Essential hypertension (91131900) Essential (primary) hypertension (I10) Active confirmed Problem Backache (254975611) Dorsalgia, unspecified (M54.9) Active confirmed Problem Hydronephrosis (88137316) Unspecified hydronephrosis (N13.30) Active confirmed Problem Palpitations (75484224) Palpitations (R00.2) Active confirmed Problem Edema (28021546) Edema, unspecified (R60.9) Active confirmed Problem Impaired fasting glucose (009238347) Impaired fasting glucose (R73.01) Active confirmed Problem Abnormal results of kidney function studies (065445664) Abnormal results of kidney function studies (R94.4) Active confirmed Problem Adult health examination (447641276) Encounter for general adult medical examination without abnormal findings (Z00.00) Active confirmed Problem Pre-procedure evaluation check (006873838) Encounter for other preprocedural examination (Z01.818) Active confirmed Problem Body mass index 25-29 - overweight (092938866) Body mass index (BMI) 28.0-28.9, adult (Z68.28) Active confirmed Problem BMI 25-29 - overweight (266301018) Body mass index (BMI) 29.0-29.9, adult (Z68.29) Active confirmed Problem Body mass index 30+ - obesity (089425755) Body mass index (BMI) 30.0-30.9, adult (Z68.30) [...] lateral 07/17/2016 Electrocardiogram (EKG) 01/09/2016 Urinalysis, Complete 12/26/2012 Urinalysis, Complete 11/09/2011 Urinalysis, Complete 02/24/2013 Urinalysis, Complete 11/17/2013 Urinalysis, Complete 11/15/2014 Urinalysis, Complete 03/29/2014 Urinalysis, Complete 10/11/2015 Urinalysis, Complete 08/11/2012 Urinalysis, Complete 11/03/2012 Urinalysis, Complete 05/31/2015 TSH 05/31/2015 TSH 08/11/2012 TSH 11/03/2012 TSH 03/01/2017 TSH 10/11/2015 TSH 03/25/2018 TSH 10/08/2017 TSH 11/20/2016 TSH 03/29/2014 TSH 11/15/2014 TSH 11/15/2020 TSH 02/08/2020 TSH 11/17/2013 TSH 02/24/2013 TSH 10/28/2018 TSH 02/03/2019 TSH 11/09/2011 TSH 09/30/2019 TSH 12/26/2012 TSH 03/14/2021 TSH 08/17/2020 TSH 03/27/2016 TSH 06/04/2017 TSH 07/08/2018 CBC With Differential/Platelet 9 CBC With Differential/Platelet 2 CBC With Differential/Platelet 4 CBC With Differential/Platelet 4 CBC With Differential/Platelet 5 CBC With Differential/Platelet 4 CBC With Differential/Platelet 3 CBC With Differential/Platelet 3 CBC With Differential/Platelet 6 Lipid Panel 10/11/2015 Lipid Panel 03/29/2014 Lipid Panel 12/26/2012 Comp. Metabolic Panel (14) 11/09/2011 Comp. Metabolic Panel (14) 09/30/2019 Comp. Metabolic Panel (14) 12/26/2012 Comp. Metabolic Panel (14) 03/27/2016 Comp. Metabolic Panel (14) 03/14/2021 Comp. Metabolic Panel (14) 08/17/2020 Comp. Metabolic Panel (14) 07/08/2018 Comp. Metabolic Panel (14) 06/04/2017 Comp. Metabolic Panel (14) 11/15/2014 Comp. Metabolic Panel (14) 03/29/2014 Comp. Metabolic Panel (14) 02/08/2020 Comp. Metabolic Panel (14) 11/15/2020 Comp. Metabolic Panel (14) 11/17/2013 Comp. Metabolic Panel (14) 02/24/2013 Comp. Metabolic Panel (14) 02/03/2019 Comp. Metabolic Panel (14) 10/28/2018 Comp. Metabolic Panel (14) 03/25/2018 Comp. Metabolic Panel (14) 10/11/2015 Comp. Metabolic Panel (14) 11/20/2016 Comp. Metabolic Panel (14) 10/08/2017 Comp. Metabolic Panel (14) 08/11/2012 Comp. Metabolic Panel (14) 03/01/2017 Comp. Metabolic Panel (14) 05/31/2015 Comp. Metabolic Panel (14) 11/03/2012 Lipid Profile 11/03/2012 Lipid Profile 05/31/2015 Lipid Profile 03/01/2017 Lipid Profile 08/11/2012 Lipid Profile 10/08/2017 Lipid Profile 11/20/2016 Lipid Profile 03/25/2018 Lipid Profile 10/28/2018 Lipid Profile 02/03/2019 Lipid Profile 02/24/2013 Lipid Profile 11/17/2013 Lipid Profile 11/15/2020 Lipid Profile 02/08/2020 Lipid Profile 11/15/2014 Lipid Profile 06/04/2017 Lipid Profile 07/08/2018 Lipid Profile 08/17/2020 Lipid Profile 03/14/2021 Lipid Profile 03/27/2016 Lipid Profile 09/30/2019 Lipid Profile 11/09/2011 Carotid Duplex 12/16/2018 X ray : LS Spine 06/19/2013 X ray : LS Spine 08/11/2012 X ray : LS Spine 07/26/2015 PSA, total 07/08/2018 PSA, total 06/04/2017 PSA, total 11/09/2011 PSA, total 09/30/2019 PSA, total 12/26/2012 PSA, total 03/14/2021 PSA, total 08/17/2020 PSA, total 08/11/2012 PSA, total 03/25/2018 PSA, total 02/24/2013 PSA, total 02/03/2019 PSA, total 10/28/2018 PSA, total 11/15/2014 PSA, total 11/17/2013 PSA, total 02/08/2020 PSA, total 05/31/2015 PSA, total 11/03/2012 INFLUENZA 12/13/2015 MRI : Cervical without Contrast 09/16/19 13 Ultrasound : Abd/Aorta Comp 12/16/2018 Ultrasound : Kidneys, bilateral with dop pler 11/20/2016 X ray : Toe 09/24/2014 HSV 2 IGG HERPESELECT AB 06/23/2015 HSV 2 IGG HERPESELECT AB 05/31/2015 BASIC METAB PANEL 06/21/2014 BASIC METAB PANEL 06/29/2014 BASIC METAB PANEL 03/04/2014 BASIC METAB PANEL 05/05/2018 BASIC METAB PANEL 01/11/2016 BASIC METAB PANEL 05/09/2018 BASIC METAB PANEL 12/13/2015 BASIC METAB PANEL 12/10/2017 BASIC METAB PANEL 12/19/2017 BASIC METAB PANEL 12/28/2015 BASIC METAB PANEL 06/19/2013 BASIC METAB PANEL 01/11/2014 COMP METAB PANEL 11/23/2015 COMP METAB PANEL 12/13/2016 COMP METAB PANEL 03/05/2013 COMP METAB PANEL 03/23/2015 COMP METAB PANEL 12/09/2014 COMP METAB PANEL 11/07/2017 COMP METAB PANEL 07/25/2017 COMP METAB PANEL 05/26/2018 COMP METAB PANEL 01/20/2016 COMP METAB PANEL 11/24/2012 COMP METAB PANEL 08/18/2012 COMP METAB PANEL 04/07/2014 COMP METAB PANEL 05/29/2016 COMP METAB PANEL 06/23/2015 COMP METAB PANEL 01/04/2014 COMP METAB PANEL 08/14/2018 HEPATITIS B SURFACE AB,QL 05/31/2015 HEPATITIS B SURFACE AB,QL 06/23/2015 MAGNESIUM 05/26/2018 MAGNESIUM 09/30/2019 MAGNESIUM 05/09/2018 MAGNESIUM 02/08/2020 PROTHROMBIN TIME W/ INR 05/27/2018 PSA,TOTAL 05/14/2018 PSA,TOTAL 04/23/2018 PSA,TOTAL 06/23/2015 PSA,TOTAL 11/24/2012 PSA,TOTAL 07/25/2017 PSA,TOTAL 01/20/2016 PSA,TOTAL 08/18/2012 PSA,TOTAL 12/09/2014 PSA,TOTAL 01/04/2014 PSA,TOTAL 03/05/2013 PSA,TOTAL 08/14/2018 TSH 01/04/2014 TSH 08/14/2018 TSH 03/05/2013 TSH 03/23/2015 TSH 12/09/2014 TSH 12/13/2016 TSH 11/23/2015 TSH 08/18/2012 TSH 01/20/2016 TSH 11/07/2017 TSH 07/25/2017 TSH 11/24/2012 TSH 04/07/2014 TSH 06/23/2015 TSH 05/29/2016 TSH 04/23/2018 TSH 05/14/2018 URINALYSIS,COMPLETE 04/23/2018 URINALYSIS,COMPLETE 05/14/2018 URINALYSIS,COMPLETE 07/08/2018 URINALYSIS,COMPLETE 06/04/2017 URINALYSIS,COMPLETE 05/29/2016 URINALYSIS,COMPLETE 06/23/2015 URINALYSIS,COMPLETE 04/07/2014 URINALYSIS,COMPLETE 11/24/2012 URINALYSIS,COMPLETE 07/25/2017 URINALYSIS,COMPLETE 03/27/2016 URINALYSIS,COMPLETE 08/17/2020 URINALYSIS,COMPLETE 03/14/2021 URINALYSIS,COMPLETE 11/07/2017 URINALYSIS,COMPLETE 09/30/2019 URINALYSIS,COMPLETE 11/15/2020 URINALYSIS,COMPLETE 08/18/2012 URINALYSIS,COMPLETE 02/08/2020 URINALYSIS,COMPLETE 06/19/2013 URINALYSIS,COMPLETE 02/03/2019 URINALYSIS,COMPLETE 10/28/2018 URINALYSIS,COMPLETE 12/13/2016 URINALYSIS,COMPLETE 11/23/2015 URINALYSIS,COMPLETE 12/09/2014 URINALYSIS,COMPLETE 03/01/2017 URINALYSIS,COMPLETE 03/25/2018 URINALYSIS,COMPLETE 11/20/2016 URINALYSIS,COMPLETE 10/08/2017 URINALYSIS,COMPLETE 08/14/2018 URINALYSIS,COMPLETE 03/05/2013 URINALYSIS,COMPLETE 01/04/2014 CBC (INCLUDES DIFF/PLT) 01/04/2014 CBC (INCLUDES DIFF/PLT) 08/14/2018 CBC (INCLUDES DIFF/PLT) 10/11/2015 CBC (INCLUDES DIFF/PLT) 03/05/2013 CBC (INCLUDES DIFF/PLT) 12/09/2014 CBC (INCLUDES DIFF/PLT) 03/23/2015 CBC (INCLUDES DIFF/PLT) 11/23/2015 CBC (INCLUDES DIFF/PLT) 12/13/2016 CBC (INCLUDES DIFF/PLT) 03/29/2014 CBC (INCLUDES DIFF/PLT) 08/18/2012 CBC (INCLUDES DIFF/PLT) 12/26/2012 CBC (INCLUDES DIFF/PLT) 01/20/2016 CBC (INCLUDES DIFF/PLT) 11/07/2017 CBC (INCLUDES DIFF/PLT) 07/25/2017 CBC (INCLUDES DIFF/PLT) 11/24/2012 CBC (INCLUDES DIFF/PLT) 04/07/2014 CBC (INCLUDES DIFF/PLT) 05/29/2016 CBC (INCLUDES DIFF/PLT) 06/23/2015 CBC (INCLUDES DIFF/PLT) 05/27/2018 CBC (INCLUDES DIFF/PLT) 04/23/2018 CBC (INCLUDES DIFF/PLT) 05/14/2018 HEMOGLOBIN A1C 04/07/2014 HEMOGLOBIN A1C 06/29/2014 HEMOGLOBIN A1C 12/26/2012 HEMOGLOBIN A1C 09/30/2019 HEMOGLOBIN A1C 03/29/2014 HEMOGLOBIN A1C 03/17/2019 HEMOGLOBIN A1C 11/23/2015 HEMOGLOBIN A1C 10/11/2015 HEMOGLOBIN A1C 12/19/2017 HEMOGLOBIN A1C 12/10/2017 HEMOGLOBIN A1C 06/21/2014 MICROSCOPIC EXAM,URINE 03/23/2015 MICROALBUMIN,RAND U(W/CR) 11/23/2015 MICROALBUMIN,RAND U(W/CR) 10/11/2015 MICROALBUMIN,RAND U(W/CR) 03/29/2014 MICROALBUMIN,RAND U(W/CR) 12/26/2012 MICROALBUMIN,RAND U(W/CR) 04/07/2014 HEPATITIS C AB 06/23/2015 HEPATITIS C AB 05/31/2015 URINALYSIS,REFLEX 01/20/2016 URINALYSIS,REFLEX 03/23/2015 LIPID PANEL 11/23/2015 LIPID PANEL 04/07/2014 LIPID PANEL CLARIFICATION 11/24/2012 LIPID PANEL CLARIFICATION 08/18/2012 LIPID PANEL CLARIFICATION 06/23/2015 LIPID PANEL CLARIFICATION 05/29/2016 LIPID PANEL CLARIFICATION 05/14/2018 LIPID PANEL CLARIFICATION 04/23/2018 LIPID PANEL CLARIFICATION 01/20/2016 LIPID PANEL CLARIFICATION 07/25/2017 LIPID PANEL CLARIFICATION 11/07/2017 LIPID PANEL CLARIFICATION 12/13/2016 LIPID PANEL CLARIFICATION 12/09/2014 LIPID PANEL CLARIFICATION 03/23/2015 LIPID PANEL CLARIFICATION 03/05/2013 LIPID PANEL CLARIFICATION 08/14/2018 LIPID PANEL CLARIFICATION 01/04/2014 COMP METABOLIC PANEL CLARIFICATION 04/23 COMP METABOLIC PANEL CLARIFICATION 05/14 COMPLETE BLOOD COUNT 06/04/2017 COMPLETE BLOOD COUNT 07/08/2018 COMPLETE BLOOD COUNT 08/17/2020 COMPLETE BLOOD COUNT 03/14/2021 COMPLETE BLOOD COUNT 03/27/2016 COMPLETE BLOOD COUNT 09/30/2019 COMPLETE BLOOD COUNT 03/01/2017 COMPLETE BLOOD COUNT 10/08/2017 COMPLETE BLOOD COUNT 11/20/2016 COMPLETE BLOOD COUNT 11/15/2020 COMPLETE BLOOD COUNT 02/08/2020 COMPLETE BLOOD COUNT 02/03/2019 COMPLETE BLOOD COUNT 03/25/2018 COMPLETE BLOOD COUNT 10/28/2018 HSV 1 IGG HERPESELECT AB 06/23/2015 HSV 1 IGG HERPESELECT AB 05/31/2015 BILIRUBIN PANEL 06/11/2016 HIV 1/2 AG/AB,4TH GEN [...] Insured Coverage Start Date Coverage End Date [facility] [address] [place] [address] [id number] Max Cortes Self - patient is the insured Medical (General) History Medical History History ICD Code HTN microhematuria HERPES 2 in blood gout colonoscopy 2020 Repeat 5 yrs Surgical History Surgery Date(Month/Year) Rt inguinal hernia 2009 Hospitalization History Reason Date(Month/Year) cardiac cath 5/1/14 cardiac cath WNL 10/2015
== END 2024-12-14 10:45 | disposition home or self-care (01) ==
LOC: HO.HMCH 10:05
PROVIDERS: PCP Physician Assistant; Visit Provider Physician Assistant
DX: E78.2 Mixed hyperlipidemia (principal); I10 Essential (primary) hypertension; R80.8 Other proteinuria

== ENCOUNTER → 2024-12-14 10:04 | Outpatient (BNVA) | payer MEDICARE, MEDICAID, SELFPAY | PROVIDERS: PCP Physician Assistant; Visit Provider Physician Assistant | DX: I10 Essential (primary) hypertension (principal); E78.2 Mixed hyperlipidemia; N40.0 Benign prostatic hyperplasia without lower urinary tract symptoms; I42.9 Cardiomyopathy, unspecified; R80.8 Other proteinuria; Z23 Encounter for immunization | CPT/HCPCS: 90471; 90656; 96127; 99212 ==